=== PATIENT | male | born 1985 | race Caucasian/White ===

== ENCOUNTER 2018-02-25 14:30 | Emergency (ER) | payer SELFPAY ==
[~2018-02-25] VITALS: Ht 182.9 cm; Wt 96.2 kg
[~2018-02-25 14:30] MED LIST: ADVAIR 250-501 EACH IH; ADVAIR 250-501 EACH PO; ADVAIR 500/501 EA INH; ALBUTEROL SULFAT4 MG PO; ATIVAN2 MG PO; AZITHROMYCIN250 MG PO; DOXYCYCLINE HY100 M2 IV; DOXYCYCLINE MO100 M1 PO; FAMOTIDINE20 MG PO; GUAIFENESIN DM118 ML PO; Guaifenesin/Dextromethorphan PO; LORATADINE10 MG PO; Loratadine PO; MONTELUKAST SOD10 MG PO; PEPCID20 MG PO; PREDNISONE10 MG; PREDNISONE10 MG PO; PREDNISONE20 MG PO; PROAIR HFA INH8.5 GM INH; QVAR7.3 G1 INH; SINGULAIR10 MG PO; SYMBICORT 160-4.6 GM IH; SYMBICORT 16010.2 GM INH; TESSALON PERLE100 MG PO; VIBRAMYCIN100 MG PO; VIBRAMYCIN50 MG/5 ML PO; Z.0.FLONASE16 GM NS; Z.0.VENTOLIN HFA18 G IH
[2018-02-25] MEDS ORDERED: METHYLPREDNISOLONE SOD SUCC 125 MG/2ML VIAL ONE (14:37)
[2018-02-25] MEDS ORDERED: TERBUTALINE SULFATE 1 MG/ML VIAL SC ONE (14:45)
[2018-02-25] MEDS ORDERED: METHYLPREDNISOLONE SOD SUCC 125 MG/2ML VIAL IV ONE (14:45)
[2018-02-25] MEDS ORDERED: MAGNESIUM SULFATE 2GM/50ML 50 ML IV ONE (15:00)
[2018-02-25] MEDS ORDERED: ALBUTEROL/IPRATROPIUM 3 ML NEB NEB ONE (15:00)
[2018-02-25 15:04] LABS: BASOPHILS % 0.6 % (0.0-1.0); EOSINOPHILS # (AUTO) 0.7 (0.0-0.4); HEMATOCRIT 46.6 % (38.2-49.6); HEMOGLOBIN 16.5 g/dL (14.0-18.0); LYMPHOCYTES # (AUTO) 2.7 (1.0-3.2); LYMPHOCYTES % 39.6 % (18.0-39.1); MEAN CORPUSCULAR HEMOGLOBIN 30.6 pg (28-32); MEAN CORPUSCULAR HGB CONC 35.4 g/dL (31-35); MEAN CORPUSCULAR VOLUME 86.5 fL (81-99); MONOCYTES # (AUTO) 0.6 (0.2-0.8); MONOCYTES % 8.3 % (4.4-11.3); NEUTROPHILS # (AUTO) 2.7 (2.1-6.9); NEUTROPHILS % 40.4 % (38.7-80.0); PLATELET COUNT 291 x10e3/uL (140-360); RED BLOOD COUNT 5.39 x10e6/uL (4.3-5.7); RED CELL DISTRIBUTION WIDTH 13.2 % (11.7-14.4)
--- NOTE | 2018-02-25 15:06 | Diagnostic Imaging Report ---
EXAMINATION: CHEST SINGLE (PORTABLE) INDICATION: Shortness of breath COMPARISON: 01/31/2018 FINDINGS: TUBES and LINES: None. LUNGS: The patient is rotated to the right. Lungs are well inflated. Prominent bilateral deedee with peribronchial wall thickening essentially unchanged. No lobar consolidations. PLEURA: No pleural effusion or pneumothorax. HEART AND MEDIASTINUM: The cardiomediastinal silhouette is unremarkable.. BONES AND SOFT TISSUES: No acute osseous lesion. Soft tissues are unremarkable. UPPER ABDOMEN: No free air under the diaphragm. IMPRESSION: Bilateral hilar peribronchial wall thickening suggestive of viral infection. Signed by: Dr. Venkatesh Villalobos M.D. on 02/25/2018 3:03 PM
[2018-02-25 15:15] LABS: ALANINE AMINOTRANSFERASE 26 IU/L (0-55); ALBUMIN 4.2 g/dL (3.5-5.0); ALBUMIN/GLOBULIN RATIO 1.4 (0.8-2.0); ALKALINE PHOSPHATASE 78 IU/L (40-150); ANION GAP 16.2 mmol/L (8-16); BLOOD UREA NITROGEN 7 mg/dL (7-26); BUN/CREATININE RATIO 9 (6-25); CALCIUM 9.8 mg/dL (8.4-10.2); CARBON DIOXIDE 22 mmol/L (22-29); CHLORIDE 110 mmol/L (98-107); CREATININE, SERUM 0.76 mg/dL (0.72-1.25); EST GLOMERULAR FILTRATION RATE > 60 ML/MIN (60-); GLUCOSE 89 mg/dL (74-118); POTASSIUM 4.2 mmol/L (3.5-5.1); SODIUM 144 mmol/L (136-145)
[2018-02-25] MEDS ORDERED: LORAZEPAM INJ 2 MG/ML VIAL IV NR (15:15)
[2018-02-25 15:43] LABS: ABG HCO3 24 mmol/L (23-28); ABG PCO2 21 mmHg (41-51); ABG PH 7.66 (7.31-7.41); ABG PO2 529 mmHg (80-105)
[2018-02-25 17:03] LABS: AMPHETAMINES SCREEN,URINE NEGATIVE (NEGATIVE); BENZODIAZEPINES SCREEN,URINE POSITIVE (NEGATIVE); PHENCYCLIDINE SCREEN,URINE NEGATIVE (NEGATIVE)
[2018-02-25 17:41] VITALS: BP 139/82
== END 2018-02-25 17:53 | disposition home or self-care (01) ==
LOC: ER 14:30
DX: R06.00 Dyspnea, unspecified (principal); R05 Cough; J45.31 Mild persistent asthma with (acute) exacerbation; F12.90 Cannabis use, unspecified, uncomplicated; F13.90 Sedative, hypnotic, or anxiolytic use, unspecified, uncomplicated
CPT/HCPCS: 36415; 71045; 80053; 80307; 82805; 85025; 93005; 94640; 94660; 99284; J2060; J2930; J3105; 36600

== ENCOUNTER 2018-05-21 21:48 | Emergency (ER) | payer SELFPAY ==
[~2018-05-21] VITALS: Ht 193 cm; Wt 96.2 kg
[2018-05-21] MEDS ORDERED: ALBUTEROL/IPRATROPIUM 3 ML NEB ONE (21:52)
--- NOTE | 2018-05-21 23:22 | Diagnostic Imaging Report ---
CHEST SINGLE (PORTABLE), 05/21/2018 10:11 PM Technique: CHEST SINGLE (PORTABLE) Comparison: 02/25/2018 Clinical history: Respiratory distress Findings: Rounded density over the right upper lobe. Otherwise stable appearance of the heart, mediastinum, lungs and pleural spaces with mild hyperinflation. Impression: 1. Rounded density over the right upper lobe, likely artifactual related to overlying lead and portable technique. Recommend follow-up upright PA and lateral. 2. Otherwise stable chest without acute abnormality. Signed by: Dr Angeline Tai MD on 05/21/2018 11:18 PM
[2018-05-21 23:56] LABS: BASOPHILS % 0.4 % (0.0-1.0); EOSINOPHILS # (AUTO) 0.5 (0.0-0.4); EOSINOPHILS % 5.8 % (0.0-6.0); HEMATOCRIT 45.1 % (38.2-49.6); HEMOGLOBIN 15.6 g/dL (14.0-18.0); LYMPHOCYTES # (AUTO) 3.1 (1.0-3.2); LYMPHOCYTES % 38.5 % (18.0-39.1); MEAN CORPUSCULAR HEMOGLOBIN 30.5 pg (28-32); MEAN CORPUSCULAR HGB CONC 34.6 g/dL (31-35); MEAN CORPUSCULAR VOLUME 88.1 fL (81-99); MONOCYTES # (AUTO) 0.6 (0.2-0.8); NEUTROPHILS # (AUTO) 3.9 (2.1-6.9); NEUTROPHILS % 48.2 % (38.7-80.0); PLATELET COUNT 198 x10e3/uL (140-360); RED BLOOD COUNT 5.12 x10e6/uL (4.3-5.7); RED CELL DISTRIBUTION WIDTH 13.2 % (11.7-14.4)
[2018-05-22] MEDS ORDERED: MAGNESIUM SULFATE 2GM/50ML 50 ML IV ONE
[2018-05-22 00:11] LABS: ANION GAP 20.1 mmol/L (8-16); BLOOD UREA NITROGEN 14 mg/dL (7-26); BUN/CREATININE RATIO 15 (6-25); CALCIUM 9.3 mg/dL (8.4-10.2); CARBON DIOXIDE 20 mmol/L (22-29); CHLORIDE 105 mmol/L (98-107); CREATININE, SERUM 0.95 mg/dL (0.72-1.25); EST GLOMERULAR FILTRATION RATE > 60 ML/MIN (60-); GLUCOSE 119 mg/dL (74-118); POTASSIUM 3.1 mmol/L (3.5-5.1); SODIUM 142 mmol/L (136-145)
--- NOTE | 2018-05-22 00:25 | Diagnostic Imaging Report ---
CHEST 2 VIEWS, Technique: CHEST 2 VIEWS Comparison: 05/21/2018 portable radiograph Clinical history: Asthma DISCUSSION: Hyperinflation. Otherwise unremarkable appearance of the heart, mediastinum, lungs and pleural spaces. IMPRESSION: No acute abnormality. Previously described rounded right upper hemithorax opacity was related to summation shadow and portable technique. Signed by: Dr Angeline Tai MD on 05/22/2018 12:22 AM
--- NOTE | 2018-05-22 00:32 | NUR ---
PER MD'S REQUEST, PT AMB IN [place], TOLERATED WELL. DENIES SOB/DISCOMFORT. MD NOTIFIED.
[2018-05-22 01:28] LABS: CREATINE KINASE MB 11.9 ng/mL (0-5.0)
== END 2018-05-22 03:11 | disposition home or self-care (01) ==
LOC: ER 21:48
DX: R06.00 Dyspnea, unspecified (principal); J45.32 Mild persistent asthma with status asthmaticus
CPT/HCPCS: 36415; 71045; 71046; 80048; 82550; 82553; 84484; 85025; 93005; 94640; 99284; J3475

== ENCOUNTER 2018-10-23 17:08 | Emergency (ER) | payer SELFPAY ==
[~2018-10-23] VITALS: Ht 193 cm; Wt 96.2 kg
[2018-10-23] MEDS ORDERED: IPRATROPIUM BROMIDE 0.02% 2.5 ML NEB NEB STA (17:11)
--- NOTE | 2018-10-23 17:22 | NUR ---
RT AT BEDSIDE AT THIS TIME, PLACING PT ON BIPAP AT THIS TIME.
[2018-10-23] MEDS ORDERED: SODIUM CHLORIDE 0.9% 1000ML 1,000 ML IV STA (17:25)
[2018-10-23] MEDS ORDERED: SODIUM CHLORIDE 0.9% 1000ML 1,000 ML ONE (17:30)
--- NOTE | 2018-10-23 17:50 | NUR ---
RADIOLOGY AT BEDSIDE FOR CXR AT THIS TIME.
[2018-10-23] MEDS ORDERED: MAGNESIUM SULFATE 2GM/50ML 50 ML IV ONE (18:00)
[2018-10-23] MEDS ORDERED: ALBUTEROL SULF 0.083% NEB SOLN 3 ML NEB NEB ONE (18:00)
[2018-10-23] MEDS ORDERED: LORAZEPAM INJ 2 MG/ML VIAL IV ONE (18:00)
--- NOTE | 2018-10-23 18:08 | Diagnostic Imaging Report ---
EXAMINATION: CHEST SINGLE (PORTABLE) INDICATION: Shortness of breath. Asthma. COMPARISON: Chest x-ray 05/21/2018. FINDINGS: AP view TUBES and LINES: None. LUNGS: Lungs are well inflated. Bilateral peribronchial cuffing. There is no evidence of pneumonia or pulmonary edema. PLEURA: No pleural effusion or pneumothorax. HEART AND MEDIASTINUM: The cardiomediastinal silhouette is unremarkable. BONES AND SOFT TISSUES: No acute osseous lesion. Soft tissues are unremarkable. UPPER ABDOMEN: No free air under the diaphragm. IMPRESSION: Bilateral peribronchial cuffing, which could represent viral etiology or reactive airway disease. Signed by: Dr. Swapnil Bocanegra M.D. on 10/23/2018 6:04 PM
--- NOTE | 2018-10-23 18:30 | NUR ---
BIPAP REMOVED PER ORDERS FROM DR. LOPEZ, WILL CONTINUE TO MONITOR TO EVALUATE WORK OF BREATHING ON ROOM AIR.
[2018-10-23 19:14] VITALS: BP 143/87
== END 2018-10-23 19:30 | disposition home or self-care (01) ==
LOC: ER 17:08
DX: J45.901 Unspecified asthma with (acute) exacerbation (principal); Z87.891 Personal history of nicotine dependence
CPT/HCPCS: 71045; 93005; 94640; 94660; 99284; J2060; J3475; J7030

== ENCOUNTER 2019-01-28 08:52 | Emergency (ER) | payer SELFPAY ==
[~2019-01-28] VITALS: Ht 188 cm; Wt 99.8 kg
[2019-01-28] MEDS ORDERED: ALBUTEROL SULF 0.083% NEB SOLN 3 ML NEB ONE (09:12)
[2019-01-28] MEDS ORDERED: SODIUM CHLORIDE 0.9% 1000ML 1,000 ML IV SCH (09:15)
[2019-01-28] MEDS ORDERED: LORAZEPAM INJ 2 MG/ML VIAL IV ONE (09:15)
[2019-01-28] MEDS ORDERED: MAGNESIUM SULFATE 2GM/50ML 50 ML IV ONE (09:15)
[2019-01-28] MEDS ORDERED: ALBUTEROL/IPRATROPIUM 3 ML NEB NEB ONE ×2 (09:15)
[2019-01-28] MEDS ORDERED: ALBUTEROL/IPRATROPIUM 3 ML NEB NEB PRN (09:15)
[2019-01-28] MEDS ORDERED: METHYLPREDNISOLONE SOD SUCC 125 MG/2ML VIAL IV ONE (09:15)
[2019-01-28] MEDS ORDERED: ALBUTEROL/IPRATROPIUM 3 ML NEB ONE (09:22)
--- NOTE | 2019-01-28 09:40 | Diagnostic Imaging Report ---
A single frontal view of the chest. HISTORY: Asthma COMPARISON: Chest radiographs October 23, 2018 and May 21, 2018 DISCUSSION: Portable technique, limits sensitivity of the exam. Overlying tubing. Tubes/Lines: None Lungs and pleura: Persistent prominence of the peribronchial interstitial markings. No evidence of a consolidative pneumonia or pulmonary alveolar edema. No definite pleural effusion or pneumothorax is identified. Heart and mediastinum: The cardiomediastinal silhouette appear(s) unremarkable. Bones and soft tissues: Appear unremarkable, given this limited exam. IMPRESSION: Findings remain compatible with a nonspecific bronchitis, which can be seen in the provided setting of asthma. Signed by: Dr. Slade Tee D.O., M.M.M. on 01/28/2019 9:37 AM
[2019-01-28] MEDS ORDERED: SODIUM CHLORIDE 0.9% 1000ML 1,000 ML ONE (10:12)
--- NOTE | 2019-01-28 10:45 | NUR ---
Spoke to [facility] transfer center and arranged transfer to [place]. Dr. Tucker did a doc to doc report for pt and transfer center will call back with information. Pt needs a step down bed or a monitored tele bed with possible ICU upgrade if needed for intubation as pt has degraded and needed intubation before for asthma exacerbation.
[2019-01-28] MEDS ORDERED: ALBUTEROL SULF 0.083% NEB SOLN 3 ML NEB NEB STA (10:56)
--- NOTE | 2019-01-28 13:00 | NUR ---
Called [facility] for transport to [place]
--- NOTE | 2019-01-28 14:20 | NUR ---
[facility] here to [facility] pt to transport to [place]
--- NOTE | 2019-01-28 14:24 | NUR ---
Report to Adrianna at [place] [phone]
[2019-01-28 14:30] VITALS: BP 145/80
== END 2019-01-28 14:20 | disposition other institution (70) ==
LOC: FSED 08:52
DX: R06.00 Dyspnea, unspecified (principal); J45.51 Severe persistent asthma with (acute) exacerbation
CPT/HCPCS: 71045; 80053; 80307; 85025; 96374; 96375; 99284; J2060; J2930; J3475; J7030

== ENCOUNTER 2019-02-19 08:28 | Inpatient (IN) | payer OTHER ==
[~2019-02-19] VITALS: Ht 193 cm; Wt 99.8 kg
[2019-02-19] MEDS ORDERED: ALBUTEROL SULF 0.083% NEB SOLN 3 ML NEB NEB NR (08:33)
[2019-02-19] MEDS ORDERED: SODIUM CHLORIDE 0.9% 1000ML 1,000 ML IV STA (08:34)
[2019-02-19] MEDS ORDERED: IPRATROPIUM BROMIDE 0.02% 2.5 ML NEB ONE (08:40)
[2019-02-19] MEDS ORDERED: DEXAMETHASONE SOD PHOS INJ 4 MG/ML VIAL ONE (08:42)
[2019-02-19] MEDS ORDERED: IPRATROPIUM BROMIDE 0.02% 2.5 ML NEB NEB ONE (08:45)
[2019-02-19 08:55] LABS: BASOPHILS # (AUTO) 0.1 (0.0-0.1); BASOPHILS % 0.6 % (0.0-1.0); EOSINOPHILS # (AUTO) 0.3 (0.0-0.4); EOSINOPHILS % 4.2 % (0.0-6.0); HEMATOCRIT 46.4 % (38.2-49.6); HEMOGLOBIN 16.6 g/dL (14.0-18.0); LYMPHOCYTES # (AUTO) 1.8 (1.0-3.2); LYMPHOCYTES % 22.6 % (18.0-39.1); MEAN CORPUSCULAR HEMOGLOBIN 30.8 pg (28-32); MEAN CORPUSCULAR HGB CONC 35.8 g/dL (31-35); MEAN CORPUSCULAR VOLUME 86.1 fL (81-99); MONOCYTES # (AUTO) 0.5 (0.2-0.8); MONOCYTES % 6.2 % (4.4-11.3); NEUTROPHILS # (AUTO) 5.4 (2.1-6.9); NEUTROPHILS % 66.3 % (38.7-80.0); PLATELET COUNT 212 x10e3/uL (140-360); RED BLOOD COUNT 5.39 x10e6/uL (4.3-5.7); RED CELL DISTRIBUTION WIDTH 13.8 % (11.7-14.4)
[2019-02-19] MEDS: DEXAMETHASONE SOD PHOS 10 MG/1 ML VIAL INH NR (09:08)
[2019-02-19 09:19] LABS: ALANINE AMINOTRANSFERASE 28 IU/L (0-55); ALBUMIN 4.4 g/dL (3.5-5.0); ALBUMIN/GLOBULIN RATIO 1.5 (0.8-2.0); ALKALINE PHOSPHATASE 80 IU/L (40-150); BLOOD UREA NITROGEN 11 mg/dL (7-26); BUN/CREATININE RATIO 13 (6-25); CALCIUM 10.3 mg/dL (8.4-10.2); CARBON DIOXIDE 26 mmol/L (22-29); CHLORIDE 105 mmol/L (98-107); CREATINE KINASE 126 IU/L (30-200); CREATININE, SERUM 0.86 mg/dL (0.72-1.25); EST GLOMERULAR FILTRATION RATE > 60 ML/MIN (60-); GLUCOSE 100 mg/dL (74-118); MAGNESIUM 2.1 MG/DL (1.3-2.1); SODIUM 142 mmol/L (136-145)
--- NOTE | 2019-02-19 09:33 | Diagnostic Imaging Report ---
Examination: Single AP view of the chest. COMPARISON: None. INDICATION: Shortness of breath DISCUSSION: Lines/tubes: None. Lungs: The lungs are well inflated and clear. No pneumonia or pulmonary edema. Pleura: No pleural effusion or pneumothorax. Heart and mediastinum: The heart and the mediastinum are unremarkable. Bones and soft tissues: No acute bony abnormalities. IMPRESSION: 1. No acute cardiopulmonary abnormalities. Signed by: Dr. Roger Cerda M.D. on 02/19/2019 9:29 AM
[2019-02-19] MEDS ORDERED: METHYLPREDNISOLONE SOD SUCC 125 MG/2ML VIAL IV NR (09:45)
[2019-02-19 09:51] LABS: INR 0.86; PARTIAL THROMBOPLASTIN TIME 32.3 seconds (23.8-35.5); PROTHROMBIN TIME 12.2 seconds (11.9-14.5)
[2019-02-19] MEDS ORDERED: SODIUM CHLORIDE 0.9% 1000ML 1,000 ML IV SCH (11:31)
[2019-02-19] MEDS ORDERED: ACETAMINOPHEN 325 MG TAB PO PRN (11:45)
[2019-02-19] MEDS ORDERED: AZITHROMYCIN 500MG/NS 250 ML 250 ML IV SCH (11:45)
[2019-02-19] MEDS ORDERED: ONDANSETRON HCL INJ 2MG/ML 2ML 2 MG/ML VIAL IV PRN (11:45)
[2019-02-19 12:25] LABS: CLARITY,URINE SL CLOUDY (CLEAR); COLOR,URINE YELLOW (YELLOW)
[2019-02-19 12:26] LABS: BACTERIA,URINE FEW /HPF; BILIRUBIN,URINE NEGATIVE (NEGATIVE); EPITHELIAL CELLS,URINE FEW /LPF; KETONES,URINE NEGATIVE (NEGATIVE); LEUKOCYTE ESTERASE ,URINE NEGATIVE (NEGATIVE); NITRITE,URINE NEGATIVE (NEGATIVE); PROTEIN,URINE DIPSTICK TRACE (NEGATIVE); URINE UROBILINOGEN 0.2 mg/dL (0.2 - 1)
--- NOTE | 2019-02-19 12:26 | NUR ---
[facility] CALLED FOR MEAL TRAY
[2019-02-19 12:27] LABS: MUCUS,URINE MODERATE (RARE)
[2019-02-19 12:56] VITALS: BP 146/79
[2019-02-19 13:00] VITALS: BP 146/79
[2019-02-19] MEDS ORDERED: ADVAIR 500/501 EA INH (13:06)
[2019-02-19] MEDS ORDERED: METHYLPREDNISOLONE SOD SUCC 125 MG/2ML VIAL IV SCH ×2 (14:00→17:00)
[2019-02-19] MEDS: IPRATROPIUM BROMIDE 0.02% 2.5 ML NEB NEB SCH ×3 (14:52→23:25)
[2019-02-19] MEDS: ALBUTEROL SULF 0.083% NEB SOLN 3 ML NEB NEB SCH ×3 (14:52→23:20)
--- NOTE | 2019-02-19 15:05 | NUR ---
Visit made by the Spiritual Care Department Pastoral Visitor, Dorian Wing. PV provided pastoral presence, hospitality, and supportive listening. Pastoral Visitor informed pt/family of the scope of Patient Accounts Manager Services and availability. NICOLE TRIVEDI Change Advisor Spiritual Care Department O: [phone] Pager: [phone] ([phone] number calling from)
[2019-02-19 16:23] VITALS: BP 153/75
[2019-02-19 20:00] VITALS: BP 138/79
[2019-02-19] MEDS ORDERED: LORAZEPAM 1 MG PO PRN (20:00)
[2019-02-19] MEDS ORDERED: MELATONIN 5 MG TABLET PO PRN (20:00)
[2019-02-19] MEDS ORDERED: HYDRALAZINE HCL 20 MG/ML VIAL IV PRN (20:00)
[2019-02-19] MEDS: LORAZEPAM 1 MG TAB PO PRN (20:58)
[2019-02-19 21:00] VITALS: BP 138/79
[2019-02-20] VITALS (7 sets, daily range): BP systolic 120–170; BP diastolic 63–82
--- NOTE | 2019-02-20 02:00 | NUR ---
Patient refused SCD's. States he gets up often and don't need it.
[2019-02-20 03:02] LABS: HEMATOCRIT 46.6 % (38.2-49.6); HEMOGLOBIN 16.4 g/dL (14.0-18.0); LYMPHOCYTES # (AUTO) 0.7 (1.0-3.2); LYMPHOCYTES % 7.8 % (18.0-39.1); MEAN CORPUSCULAR HEMOGLOBIN 30.4 pg (28-32); MEAN CORPUSCULAR HGB CONC 35.2 g/dL (31-35); MEAN CORPUSCULAR VOLUME 86.5 fL (81-99); MONOCYTES # (AUTO) 0.3 (0.2-0.8); MONOCYTES % 3.2 % (4.4-11.3); NEUTROPHILS # (AUTO) 8.2 (2.1-6.9); NEUTROPHILS % 88.6 % (38.7-80.0); PLATELET COUNT 195 x10e3/uL (140-360); RED BLOOD COUNT 5.39 x10e6/uL (4.3-5.7); RED CELL DISTRIBUTION WIDTH 13.6 % (11.7-14.4)
[2019-02-20 03:14] LABS: ANION GAP 12.9 mmol/L (8-16); BLOOD UREA NITROGEN 10 mg/dL (7-26); BUN/CREATININE RATIO 13 (6-25); CALCIUM 10.2 mg/dL (8.4-10.2); CARBON DIOXIDE 23 mmol/L (22-29); CHLORIDE 107 mmol/L (98-107); CREATININE, SERUM 0.75 mg/dL (0.72-1.25); EST GLOMERULAR FILTRATION RATE > 60 ML/MIN (60-); GLUCOSE 126 mg/dL (74-118); MAGNESIUM 2.1 MG/DL (1.3-2.1); POTASSIUM 3.9 mmol/L (3.5-5.1); SODIUM 139 mmol/L (136-145)
[2019-02-20] MEDS: ALBUTEROL SULF 0.083% NEB SOLN 3 ML NEB NEB SCH ×6 (04:00→23:15)
[2019-02-20] MEDS: IPRATROPIUM BROMIDE 0.02% 2.5 ML NEB NEB SCH ×6 (04:00→23:15)
[2019-02-20] MEDS ORDERED: CEFTRIAXONE SOD 1 GM/NS 50 ML 50 ML IV SCH (04:30)
--- NOTE | 2019-02-20 04:50 | NUR ---
Jaycee notified that patient refused SCD's.
[2019-02-20] MEDS ORDERED: FUROSEMIDE INJ 10 MG/ML 4 ML VIAL IV ONE (05:00)
[2019-02-20] MEDS: LEVOFLOXACIN 750MG/D5W 150ML 150 ML IV SCH (05:23)
[2019-02-20] MEDS ORDERED: FAMOTIDINE 20 MG TAB PO SCH ×2 (06:00)
[2019-02-20] MEDS: GUAIFENESIN 600MG/DEXTROMETHORPHAN 30MG TABSR PO SCH ×2 (09:36→18:01)
[2019-02-20] MEDS: PREDNISONE 20 MG TAB PO SCH (09:36)
[2019-02-20] MEDS: LORATADINE 10 MG TAB PO SCH (09:36)
[2019-02-20] MEDS ORDERED: ONDANSETRON HCL 4 MG ORAL DISINTEGRATING TAB PO PRN (10:45)
--- NOTE | 2019-02-20 10:51 | NUR ---
ASSESSMENT: Spiritual Despair Pt overwhelmed by unresolved guilt, shame, self-forgiveness and anticipatory grief. Pt states his mother is presently hospitalized with terminal brain cancer and he is struggling with coming to terms with her mortality. Pt states he has difficulty forgiving himself for poor life choices. Pt states he doesn't have "the coping skills" to manage his stress. Pt's yeni is wavering. Pt expressed emotions thru words and tears. Intervention: Provided unhurried empathic listening. Facilitated life review. Normalized pt's experience. Suggested coping strategies. Provided prayer. Outcome: Provided information on how to reach home connect lpn, if needed. Will follow as able. NICOLE TRIVEDI Criminal Justice Department Chair Spiritual Care Department O: [phone] Pager: [phone] ([phone] number calling from)
[2019-02-20] MEDS: FAMOTIDINE 20 MG TAB PO SCH (18:01)
--- NOTE | 2019-02-20 19:08 | NUR ---
Received change of shift report from AM nurse. Walking rounds completed.
[2019-02-21] VITALS (7 sets, daily range): BP systolic 121–134; BP diastolic 61–79
[2019-02-21] MEDS: IPRATROPIUM BROMIDE 0.02% 2.5 ML NEB NEB SCH ×5 (03:00→20:15)
[2019-02-21] MEDS: ALBUTEROL SULF 0.083% NEB SOLN 3 ML NEB NEB SCH ×5 (03:00→20:15)
[2019-02-21] MEDS: LEVOFLOXACIN 750MG/D5W 150ML 150 ML IV SCH (04:45)
[2019-02-21 05:50] LABS: BASOPHILS % 0.3 % (0.0-1.0); EOSINOPHILS # (AUTO) 0.1 (0.0-0.4); EOSINOPHILS % 1.6 % (0.0-6.0); HEMATOCRIT 46.1 % (38.2-49.6); HEMOGLOBIN 16.2 g/dL (14.0-18.0); LYMPHOCYTES # (AUTO) 1.6 (1.0-3.2); LYMPHOCYTES % 21.3 % (18.0-39.1); MEAN CORPUSCULAR HGB CONC 35.1 g/dL (31-35); MEAN CORPUSCULAR VOLUME 88.1 fL (81-99); MONOCYTES # (AUTO) 0.7 (0.2-0.8); MONOCYTES % 8.7 % (4.4-11.3); NEUTROPHILS # (AUTO) 5.2 (2.1-6.9); NEUTROPHILS % 67.8 % (38.7-80.0); PLATELET COUNT 206 x10e3/uL (140-360); RED BLOOD COUNT 5.23 x10e6/uL (4.3-5.7); RED CELL DISTRIBUTION WIDTH 14.4 % (11.7-14.4)
[2019-02-21 06:11] LABS: ANION GAP 11.8 mmol/L (8-16); BUN/CREATININE RATIO 24 (6-25); CALCIUM 9.7 mg/dL (8.4-10.2); CARBON DIOXIDE 25 mmol/L (22-29); CHLORIDE 107 mmol/L (98-107); CREATININE, SERUM 0.82 mg/dL (0.72-1.25); EST GLOMERULAR FILTRATION RATE > 60 ML/MIN (60-); GLUCOSE 92 mg/dL (74-118); POTASSIUM 3.8 mmol/L (3.5-5.1); SODIUM 140 mmol/L (136-145)
[2019-02-21 06:24] LABS: BLOOD UREA NITROGEN 20 mg/dL (7-26)
--- NOTE | 2019-02-21 07:15 | NUR ---
Patient /bun/Creatine appear to elevate but at normal range. Passed info on to AM nurse.
[2019-02-21] MEDS: LORATADINE 10 MG TAB PO SCH (09:33)
[2019-02-21] MEDS: GUAIFENESIN 600MG/DEXTROMETHORPHAN 30MG TABSR PO SCH ×2 (09:34→17:23)
[2019-02-21] MEDS: PREDNISONE 20 MG TAB PO SCH (09:34)
[2019-02-21] MEDS: FAMOTIDINE 20 MG TAB PO SCH ×2 (09:34→17:23)
--- NOTE | 2019-02-21 13:15 | NUR ---
Follow Up Visit. Reminded pt of availability of debeader as a resource. Will continue to follow as able. NICOLE TRIVEDI Rx Specialist Spiritual Care Department O: [phone] Pager: [phone] ([phone] number calling from)
--- NOTE | 2019-02-21 14:30 | NUR ---
Visit made by the Spiritual Care Department Pastoral Visitor, Charlene Townsend. PV provided pastoral presence, prayer, hospitality, and supportive listening. Pastoral Visitor informed pt/family of the scope of Air Cargo Specialist Supervisor Services and availability. NICOLE TRIVEDI Size Cutter Spiritual Care Department O: [phone] Pager: [phone] ([phone] number calling from)
--- NOTE | 2019-02-21 19:13 | NUR ---
WALKING ROUNDS PERFORMED, RECEIVED PT LAYING SEMI FOWLERS IN BED, AAOX3, RR EVEN AND NON-LABORED, ON ROOM AIR. NO S/SX OF DISTRESS NOTED. LEFT PT LAYING SEMI FOWLERS IN BED, BED IN LOW LOCKED POSITION, SIDE RAILS UPX2, CALL LIGHT AND PHONE WITHIN REACH.
--- NOTE | 2019-02-21 20:05 | NUR ---
SPOKE WITH ASSOCIATE SADAF GARCIA CONCERNING PT HAS RELIGIOUS EDUCATION DIRECTOR ON BUT NO CURRENT ORDER FOR TELEMETRY. NEW ORDER RECEIVED TO PLACE PATIENT ON TELEMETRY.
[2019-02-22] VITALS (8 sets, daily range): BP systolic 118–133; BP diastolic 63–76
--- NOTE | 2019-02-22 | NUR ---
RECEIVED PATIENT IN REPORT. PATIENT RESTING IN BED. NO PAIN REPORTED. NO S&S OF DISTRESS NOTED. BED LOCKED IN LOWEST POSITION, SIDE RAILS UPX2, CALL LIGHT IN REACH.
[2019-02-22] MEDS: ALBUTEROL SULF 0.083% NEB SOLN 3 ML NEB NEB SCH ×6 (00:15→20:20)
[2019-02-22] MEDS: IPRATROPIUM BROMIDE 0.02% 2.5 ML NEB NEB SCH ×6 (00:15→20:20)
[2019-02-22] MEDS: LEVOFLOXACIN 750MG/D5W 150ML 150 ML IV SCH (04:45)
--- NOTE | 2019-02-22 05:00 | NUR ---
PATIENT'S IV SITE INFILTRATED WHEN FLUSHED FOR IV ABX. VERY SMALL AREA OF SWELLING AND REDNESS, ONLY 1 ML WAS FLUSHED. REMOVED IV, CATHETER TIP INTACT, PRESSURE DRESSING IN PLACE. NURSE ATTEMPTED IV TWICE, BOTH TIMES PATIENT STATED IT HURT TOO BAD AND ASKED THE NEEDLE BE REMOVED BEFORE IV CATHETER PLACED. WAITING ON ANOTHER NURSE TO ATTEMPT, WILL CONTINUE TO MONITOR.
[2019-02-22] MEDS: GUAIFENESIN 600MG/DEXTROMETHORPHAN 30MG TABSR PO SCH ×2 (08:31→16:57)
[2019-02-22] MEDS: LORATADINE 10 MG TAB PO SCH (08:31)
[2019-02-22] MEDS: FAMOTIDINE 20 MG TAB PO SCH ×2 (08:31→16:57)
[2019-02-22] MEDS: PREDNISONE 20 MG TAB PO SCH (08:31)
--- NOTE | 2019-02-22 11:54 | NUR ---
GAVE PACKET OF INFORMATION WITH COMMUNITY RESOURCES FOR ASSISTANCE WITH LOW TO NO INCOME TO PATIENT. RESOURCES THAT PATIENT MAY BE ABLE TO FOLLOW UP UPON DISCHARGE. PT EDUCATED ON EACH RESOURCE AND UNDERSTANDING HOW TO FOLLOW UP TO SEE IF QUALIFIED FOR EACH RESOURCE.
[2019-02-22] MEDS: DOCUSATE SODIUM 100 MG CAP PO SCH ×2 (12:58→20:36)
--- NOTE | 2019-02-22 13:00 | NUR ---
NOTIFIED PT ABOUT MEDICAL OBSERVER RAJ ORDER TO INSERT PICC LINE . PT STATES HE DOES NOT WANT A PICC LINE AT THIS TIME. STATES HE HAS AN IV TO THE RIGHT FA AND IS WORKING FINE, WANTS TO WAIT UNTIL THIS PERIPHERAL IV GIVES OUT BEFORE TRYING SOMETHING MORE EXTENSIVE NOTIFIED LEXI ANTHONY, MEDICAL OBSERVER IS AWARE OF PT REQUEST. HOLDING OFF ON PICC LINE REQUEST FOR NOW
[2019-02-22] MEDS ORDERED: ALBUTEROL SULFATE HFA 8GM INHALATION AEROSOL INH PRN (14:00)
[2019-02-22] MEDS ORDERED: METHYLPREDNISOLONE SOD SUCC 125 MG/2ML VIAL IV SCH ×2 (14:00→21:00)
[2019-02-22] MEDS: SALMETEROL/FLUTICASONE 500/50 INH SCH (15:35)
[2019-02-22] MEDS: SODIUM CHLORIDE 0.9% 1000ML 1,000 ML IV SCH ×2 (15:50→22:45)
[2019-02-22] MEDS: POLYETHYLENE GLYCOL 3350 17 GM PACK PO SCH (16:57)
[2019-02-22] MEDS: FLUTICASONE PROPIONATE NASAL SPRAY NS SCH (17:16)
[2019-02-22] MEDS: LORAZEPAM 1 MG TAB PO PRN (17:17)
--- NOTE | 2019-02-22 18:54 | Diagnostic Imaging Report ---
History: Sinusitis Comparison studies: Head CT 08/07/2014 Technique: Axial images were obtained through the paranasal sinuses. Coronal and sagittal images reconstructed from the axial data. Dose modulation, iterative reconstruction, and/or weight based adjustment of the mA/kV was utilized to reduce the radiation dose to as low as reasonably achievable. IV contrast: None. Radiation dose: Total DLP: 316 mGy*cm. Estimated effective dose: DLP x 0.015 Intravenous contrast: None Findings: Right anterior complex: Frontal sinus: Partially opacified with polypoid mucosal thickening. Frontonasal recess: Opacified. Anterior ethmoid air cells: Opacified. Ostiomeatal unit: Opacified. Maxillary sinus: Partially opacified by peripheral mucosal thickening and fluid/secretions. Left anterior complex: Frontal sinus: Clear. Frontonasal recess: Clear. Anterior ethmoid air cells: Clear. Ostiomeatal unit: Clear. Maxillary sinus: Minimal mucosal thickening inferiorly within the sinus otherwise clear. Posterior complex: Right sphenoid sinus: Clear. Right sphenoethmoidal recess: Clear. Left sphenoid sinus: Partially opacified with mild mucosal thickening. Left sphenoethmoidal recess: Opacified. Posterior ethmoid air cells: Opacified Other: Nasal vestibule and cavity: Right nasal cavity is clear. Left nasal cavity is mostly opacified with reactive turbinate hypertrophy, mucosal thickening and secretions. Nasal septum: Deviated to the left of midline with leftward projecting osseous spur which abuts the left inferior turbinate and inferior left middle turbinate Agger Nasi: Clear on the right. Opacified on the left. Turbinates: No andrew bullosa. Placido cells: None Lamina papyracea: Intact. Cribriform plates: , 6 mm on the right and 4 mm on the left below the level of the fovea ethmoidalis. Olfactory recesses: Narrowed and partially opacified posteriorly. Clear anteriorly. Optic canals: Not dehiscent Onodi cells: None Internal carotid arteries: from the sphenoid sinuses by thin bony plates. Sphenoid sinuses: Similar in size. Lateral recesses are partially pneumatized. Orbits: No abnormalities. Bones: No abnormalities. Temporal bones: No gross abnormalities. Maxillary dentition: Multiple absent teeth. Tooth #9 root canal. No periapical lucencies. IMPRESSION: 1. Left maxillary sinus, left anterior and posterior ethmoid and left frontal sinus opacification with mild mucosal thickening in the left sphenoid sinus and right maxillary sinus. Left maxillary sinus secretions indicative of acute on chronic sinusitis. 2. Obstructed left maxillary sinus and left sphenoethmoidal recess. Remaining sinus drainage pathways are patent. 3. Left nasal cavity opacified by mucosal thickening, turbinate hypertrophy and secretions. Left nasal obstruction exacerbated by leftward deviated nasal septum. Signed by: Dr. Ben Ambriz M.D. on 02/22/2019 6:51 PM
[2019-02-22] MEDS ORDERED: CEFTRIAXONE SOD 1 GM/NS 50 ML 50 ML IV SCH (19:30)
--- NOTE | 2019-02-22 20:43 | Consultation ---
DATE OF CONSULTATION: Pulmonary Critical Care consultation CHIEF COMPLAINT: Chronic persistent asthma with acute exacerbation. HISTORY OF PRESENT ILLNESS: The patient is a 33-year-old man. He has a lifelong history of asthma. He has required frequent hospitalizations including a hospitalization at [facility] in 2016 as well as two hospitalizations in 2018. He was most recently hospitalized at [facility] for an asthma exacerbation. He uses Advair 500 mcg twice a day at home. He also uses nebulizer and rescue inhaler. He previously tried Xolair, but he had an allergic reaction to this. He now returns to the hospital complaining of wheezing and coughing. He also notes some sinus congestion and nasal obstruction. The patient denies any sensitivity to aspirin. He does not have severe gastroesophageal reflux. He is not smoking. He does not vape or use any other drugs through an inhaled means. PAST MEDICAL HISTORY: 1. Chronic persistent asthma. 2. History of airborne allergies. The patient was previously followed by Dr. Woods of Allergy at [place]. PAST SURGICAL HISTORY: Noncontributory. FAMILY HISTORY: His father had asthma, but it was never as severe as is his. There is no history of cystic fibrosis in the family. ALLERGIES: NO KNOWN DRUG ALLERGIES. SOCIAL HISTORY: The patient is a nonsmoker. 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 He has no dogs or cats at home. REVIEW OF SYSTEMS: He has no fever or headache. He does note some nasal congestion and sinus pain. He does not complain of any neck pain or sore throat. He notes wheezing and coughing. He has no chest pain. He is not having any gastroesophageal reflux or heartburn. He denies nausea or vomiting. He has no focal neurological abnormalities. Skin examination shows no rashes. PHYSICAL EXAMINATION: VITAL SIGNS: The patient is afebrile. The blood pressure is 129/70 and the saturation is 97%. HEENT: Shows no facial swelling or erythema. CARDIAC: Reveals regular rate and rhythm with a normal S1 and S2. There are no murmurs or rubs. PULMONARY: Auscultation of lungs show wheezes in both lung mcintyre. There is a prolonged expiratory phase. ABDOMEN: Soft and nontender. There is no rebound or guarding. EXTREMITIES: Show no leg edema or calf tenderness. There is no cyanosis or clubbing. SKIN: Shows no rashes. NEUROLOGICAL: Shows no focal abnormalities. IMPRESSION: 1. Chronic persistent asthma with acute exacerbation. 2. Rhinosinusitis. 3. Multiple airborne allergens. PLAN: 1. Continue high-dose inhaled corticosteroids (Advair 500 mcg two puffs twice daily). 2. Taper steroids as tolerated. 3. CT scan of the sinuses. 4. Consider cystic fibrosis probe to rule out variance of cystic fibrosis. 5. The patient should be started on either Fasenra or Nucala as an outpatient to help prevent recurrent exacerbations. Joaquin Camilo MD [facility]/MODL /[id number]
[2019-02-22] MEDS ORDERED: OXYMETAZOLINE HCL 0.05% NAS 1 SPRAY BTL SCH (21:00)
[2019-02-23] MEDS: ALBUTEROL SULF 0.083% NEB SOLN 3 ML NEB NEB SCH ×4 (00:10→11:00)
[2019-02-23] MEDS: IPRATROPIUM BROMIDE 0.02% 2.5 ML NEB NEB SCH ×4 (00:10→11:00)
[2019-02-23 00:22] VITALS: BP 119/72
[2019-02-23 04:00] VITALS: BP 103/57
[2019-02-23] MEDS: LEVOFLOXACIN 750MG/D5W 150ML 150 ML IV SCH (04:49)
[2019-02-23 05:51] LABS: BASOPHILS % 0.1 % (0.0-1.0); EOSINOPHILS % 0.1 % (0.0-6.0); HEMATOCRIT 47.6 % (38.2-49.6); HEMOGLOBIN 16.4 g/dL (14.0-18.0); LYMPHOCYTES # (AUTO) 0.9 (1.0-3.2); LYMPHOCYTES % 9.7 % (18.0-39.1); MEAN CORPUSCULAR HEMOGLOBIN 30.4 pg (28-32); MEAN CORPUSCULAR HGB CONC 34.5 g/dL (31-35); MEAN CORPUSCULAR VOLUME 88.1 fL (81-99); MONOCYTES # (AUTO) 0.5 (0.2-0.8); MONOCYTES % 5.7 % (4.4-11.3); NEUTROPHILS # (AUTO) 7.5 (2.1-6.9); NEUTROPHILS % 84.1 % (38.7-80.0); PLATELET COUNT 208 x10e3/uL (140-360); RED CELL DISTRIBUTION WIDTH 13.8 % (11.7-14.4)
[2019-02-23 06:30] LABS: ANION GAP 11.1 mmol/L (8-16); BLOOD UREA NITROGEN 18 mg/dL (7-26); BUN/CREATININE RATIO 23 (6-25); CALCIUM 9.6 mg/dL (8.4-10.2); CARBON DIOXIDE 27 mmol/L (22-29); CHLORIDE 103 mmol/L (98-107); CREATININE, SERUM 0.79 mg/dL (0.72-1.25); EST GLOMERULAR FILTRATION RATE > 60 ML/MIN (60-); GLUCOSE 131 mg/dL (74-118); PHOSPHORUS 3.7 MG/DL (2.3-4.7); POTASSIUM 4.1 mmol/L (3.5-5.1); SODIUM 137 mmol/L (136-145)
[2019-02-23 07:53] VITALS: BP 131/64
[2019-02-23] MEDS: GUAIFENESIN 600MG/DEXTROMETHORPHAN 30MG TABSR PO SCH (09:00)
[2019-02-23] MEDS: LORATADINE 10 MG TAB PO SCH (09:00)
[2019-02-23] MEDS: FAMOTIDINE 20 MG TAB PO SCH (09:00)
[2019-02-23] MEDS: FLUTICASONE PROPIONATE NASAL SPRAY NS SCH (09:00)
[2019-02-23] MEDS: DOCUSATE SODIUM 100 MG CAP PO SCH (09:00)
[2019-02-23] MEDS ORDERED: METHYLPREDNISOLONE SOD SUCC 40 MG/ML VIAL 1ML IV SCH (09:00)
[2019-02-23] MEDS: POLYETHYLENE GLYCOL 3350 17 GM PACK PO SCH (09:00)
[2019-02-23] MEDS ORDERED: SALINE 0.65% NAS SOLN 1 SPRAY BTL SCH (10:00)
[2019-02-23] MEDS: SALMETEROL/FLUTICASONE 500/50 INH SCH (11:00)
--- NOTE | 2019-02-23 11:00 | NUR ---
ASSESSMENT: Spiritual despair Pt overwhelmed by life issues. Pt states he was just told that he lost his job due to his hospitalization. Pt states, "I don't know what I'm going to do next" and "my life is falling apart." Intervention: Provided unhurried pastoral listening. Facilitated space for lament. Provided prayer. Outcome: Pt expressed appreciation for visit. NICOLE Rosasin Spiritual Care Department O: [phone] Pager: [phone] ([phone] number calling from)
[2019-02-23] MEDS ORDERED: LEVAQUIN500 MG PO (11:38)
[2019-02-23] MEDS ORDERED: PREDNISONE10 MG PO (11:39)
--- NOTE | 2019-02-23 11:39 | Progress Note ---
DATE: Pulmonary Progress Note SUBJECTIVE: The CT scan showed sinusitis. The patient reports improvement with less wheezing and less cough. PHYSICAL EXAMINATION: VITAL SIGNS: The patient is afebrile. The vital signs are stable. HEENT: Shows no facial swelling or erythema. CARDIAC: Reveals a regular rate and rhythm with normal S1 and S2. LUNGS: Auscultation of lungs reveals clear breath sounds bilaterally. There is no wheezing. ABDOMEN: Soft and nontender. EXTREMITIES: There is no leg edema or calf tenderness. NEUROLOGICAL: Shows no focal abnormalities. IMPRESSION: 1. Severe chronic persistent asthma with acute exacerbation. 2. Left maxillary, ethmoid, and frontal sinusitis. 3. Septal deviation and hypertrophy of the turbinates. PLAN: 1. The patient must be on high dose inhaled corticosteroids; I emphasized the importance of this with the patient. 2. Continue albuterol as a rescue inhaler. 3. Prednisone taper and antibiotics. 4. Deep Sea nasal spray along with Atrovent and Flonase. 5. The patient needs ENT evaluation as an outpatient within the next 1 to 2 weeks. 6. The patient needs to follow up with Pulmonology within the next week. He should be evaluated for biological therapy, such as Fasenra or Nucala, as an outpatient. MD [facility]/JOSLYN /[id number]
[2019-02-23] MEDS ORDERED: [UNRECOGNIZED DRUG - OTHER] INH (11:43)
[2019-02-23] MEDS ORDERED: ATROVENT NASAL SPRAY INH (11:43)
[2019-02-23] MEDS ORDERED: FLONASE INH (11:44)
[2019-02-23] MEDS ORDERED: [UNRECOGNIZED DRUG - OTHER] INH (11:45)
--- NOTE | 2019-02-23 12:11 | NUR ---
DISCHARGE INSTRUCTIONS GIVEN AND PRESCRIPTIONS . PT VERBALIZED UNDERSTANDING IV DC PRESSURE DRESSING APPLIED AND TAPED PT IS READY FOR DC
[2019-02-23 12:23] VITALS: BP 148/85
--- NOTE | 2019-02-23 12:33 | NUR ---
PT OFF UNIT TO HOME
--- NOTE | 2019-02-25 06:15 | Discharge Summary ---
ADMISSION DIAGNOSES: Bronchopneumonia, acute exacerbation of asthma, anxiety. DISCHARGE DIAGNOSES: Bronchopneumonia, acute exacerbation of asthma, anxiety, chronic sinusitis. HISTORY: Asthma and anxiety. SURGICAL HISTORY: None. FAMILY HISTORY: The patient's father, mother, both grandmothers, and both grandfather had diabetes. The patient's mother had cancer. SOCIAL HISTORY: Noncontributory. HOSPITAL COURSE: A 33-year-old male with past medical history of asthma, presents with 3 weeks of wheezing and shortness of breath. He went to [facility], where he was admitted and given steroids and Zithromax. He felt better and was sent home with tapered steroid dose. He is still taking the low-dose steroid when he began having shortness of breath again. He uses nebulizer 4 times and inhaler without any relief, so he came back to the ER. He has associated runny nose, congestion, and productive cough. On admission, the patient was started on Levaquin, nebs, Mucinex, Claritin, and IV steroids. Chest x-ray was negative. Pulmonology was then consulted, who ordered a CT of the face, that showed left maxillary sinus, left anterior and posterior ethmoid and left frontal sinus opacification with mild mucosal thickening in the left sphenoid sinus and right maxillary sinus. Left maxillary sinus secretions indicative of [id number] sinusitis. Obstructed left maxillary sinus and left sphenoethmoid recess. So, per Pulmonology recommendation, the patient will discharge home with 10 more days of Levaquin, prednisone, Deep Sea spray, Atrovent spray, Flonase spray, and Advair 500/50 to clear out his sinusitis, that will also help his asthma. He will follow up with Dr. Camilo in 1 week. The patient understands discharge instructions and agrees to plan. Vital signs stable, the patient afebrile. Dictated by Jaycee Oliva NP Ravinder Olsen MD [facility]L /[id number]
== END 2019-02-23 12:28 | disposition home or self-care (01) | DRG 202 ==
LOC: ER 08:38 → ERHOLD 11:39 → MED/SURG 12:40 → OBSVTOIN 02-22 08:02
PROVIDERS: ADMIT Internal Medicine; ATTEND Internal Medicine
DX: J45.51 Severe persistent asthma with (acute) exacerbation (principal); J18.0 Bronchopneumonia, unspecified organism; F41.9 Anxiety disorder, unspecified; J32.9 Chronic sinusitis, unspecified
CPT/HCPCS: 36415; 70486; 71045; 80048; 80053; 81001; 82550; 82553; 83735; 83880; 84100; 84484; 85025; 85610; 85730; 93005; 94640; 94664; 99284; G0378; J0456; J0696; J1100; J1940; J2930; J7030; J7512

== ENCOUNTER 2019-07-28 15:09 | Inpatient (IN) | payer SELFPAY ==
[~2019-07-28] VITALS: Ht 193 cm; Wt 102.3 kg
[~2019-07-28 15:09] MED LIST changes: +ATROVENT NASAL SPRAY INH; +FLONASE INH; +LEVAQUIN500 MG PO; +[UNRECOGNIZED DRUG - OTHER] INH; +[UNRECOGNIZED DRUG - OTHER] INH
[2019-07-28] MEDS ORDERED: ALBUTEROL SULF 0.083% NEB SOLN 3 ML NEB NEB STA (15:11)
[2019-07-28] MEDS ORDERED: IPRATROPIUM BROMIDE 0.02% 2.5 ML NEB NEB STA (15:11)
[2019-07-28] MEDS ORDERED: METHYLPREDNISOLONE SOD SUCC 125 MG/2ML VIAL IV ONE (15:15)
[2019-07-28] MEDS ORDERED: METHYLPREDNISOLONE SOD SUCC 125 MG/2ML VIAL ONE (15:22)
[2019-07-28] MEDS ORDERED: ALBUTEROL SULF 0.083% NEB SOLN 3 ML NEB ONE (15:22)
[2019-07-28] MEDS ORDERED: IPRATROPIUM BROMIDE 0.02% 2.5 ML NEB ONE (15:23)
[2019-07-28] MEDS ORDERED: MAGNESIUM SULF 1GRAM/DEXTROSE 100 ML IV ONE (15:30)
[2019-07-28 16:00] LABS: BASOPHILS % 0.4 % (0.0-1.0); EOSINOPHILS # (AUTO) 0.5 (0.0-0.4); EOSINOPHILS % 4.6 % (0.0-6.0); HEMATOCRIT 45.5 % (38.2-49.6); HEMOGLOBIN 15.9 g/dL (14.0-18.0); LYMPHOCYTES # (AUTO) 1.4 (1.0-3.2); LYMPHOCYTES % 13.1 % (18.0-39.1); MEAN CORPUSCULAR HEMOGLOBIN 30.5 pg (28-32); MEAN CORPUSCULAR HGB CONC 34.9 g/dL (31-35); MEAN CORPUSCULAR VOLUME 87.2 fL (81-99); MONOCYTES # (AUTO) 0.7 (0.2-0.8); MONOCYTES % 6.4 % (4.4-11.3); NEUTROPHILS # (AUTO) 7.8 (2.1-6.9); NEUTROPHILS % 75.1 % (38.7-80.0); PLATELET COUNT 207 x10e3/uL (140-360); RED BLOOD COUNT 5.22 x10e6/uL (4.3-5.7); RED CELL DISTRIBUTION WIDTH 14.1 % (11.7-14.4)
[2019-07-28] MEDS ORDERED: ONDANSETRON HCL INJ 2MG/ML 2ML 2 MG/ML VIAL IV PRN (16:00)
--- NOTE | 2019-07-28 16:00 | NUR ---
RN brought pt to from triage, pt recieving neb trmts. monitor worker applied, 12 lead ekg performed. NS initiated @ 125ml/hr. 4 mg zofran iv given. Patient O2 sats on RA 98%.
[2019-07-28 16:14] LABS: ALANINE AMINOTRANSFERASE 111 IU/L (0-55); ALBUMIN 4.3 g/dL (3.5-5.0); ALBUMIN/GLOBULIN RATIO 1.7 (0.8-2.0); ALKALINE PHOSPHATASE 76 IU/L (40-150); ANION GAP 13.8 mmol/L (8-16); BLOOD UREA NITROGEN 12 mg/dL (7-26); BUN/CREATININE RATIO 15 (6-25); CALCIUM 9.3 mg/dL (8.4-10.2); CARBON DIOXIDE 25 mmol/L (22-29); CHLORIDE 105 mmol/L (98-107); CREATININE, SERUM 0.78 mg/dL (0.72-1.25); EST GLOMERULAR FILTRATION RATE > 60 ML/MIN (60-); GLUCOSE 81 mg/dL (74-118); POTASSIUM 3.8 mmol/L (3.5-5.1); SODIUM 140 mmol/L (136-145)
[2019-07-28] MEDS: SODIUM CHLORIDE 0.9% 1000ML 1,000 ML IV SCH ×2 (16:38→23:54)
--- NOTE | 2019-07-28 17:07 | Diagnostic Imaging Report ---
EXAM: CHEST SINGLE (PORTABLE) DATE: 07/28/2019 4:08 PM INDICATION: ^sob ^[id number] ^1615 ^Y COMPARISON: Chest x-ray, 02/19/2019 FINDINGS: Lines and tubes: None Heart size normal. No focal pulmonary opacity, pleural effusion or pneumothorax. Upper abdomen unremarkable. No acute bony abnormality. IMPRESSION: No evidence for acute disease or significant change. Signed by: Dr. Luis F Esparza M.D. on 07/28/2019 5:04 PM
[2019-07-28 18:05] VITALS: BP 139/74
--- NOTE | 2019-07-28 18:32 | NUR ---
Pt given nhung, patient admitted. Awaiting inpatient bed.
--- NOTE | 2019-07-28 20:05 | NUR ---
RECEIVED PT FROM ER BY WHEELCHAIR, PT IS AAOX3, RR EVEN AND NON-LABORED, ON ROOM AIR. NO S/SX OF DISTRESS NOTED. ORIENTED PT TO PMC AND CALL LIGHT. LEFT PT LAYING SEMI FOWLERS IN BED, BED IN LOW LOCKED POSITION, SIDE RAILS UPX2, CALL LIGHT AND PHONE WITHIN REACH.
[2019-07-28] MEDS: ALBUTEROL/IPRATROPIUM 3 ML NEB NEB SCH ×2 (20:21→23:50)
--- NOTE | 2019-07-28 21:20 | NUR ---
PAGE PALCED FOR MD Blair DIA CONCERNING PT HAVING FREQUENT PVC'S, DOSE OF MAG RECEIVED AND IVF. WAITING FOR CALLBACK.
--- NOTE | 2019-07-28 23:11 | NUR ---
SPOKE WITH MD Blair DIA CONCERNING PT FREQ. PVC'S, IVF'S, HOME MEDICATIONS AND DIET. NEW ORDERS RECEIVED.
[2019-07-29] VITALS (10 sets, daily range): BP systolic 132–152; BP diastolic 59–90
[2019-07-29] MEDS ORDERED: FLONASE ALLERG9.9 ML (00:35)
[2019-07-29] MEDS: ALBUTEROL/IPRATROPIUM 3 ML NEB NEB SCH ×6 (03:00→23:20)
[2019-07-29] MEDS: SODIUM CHLORIDE 0.9% 1000ML 1,000 ML IV SCH ×3 (05:26→22:52)
[2019-07-29] MEDS: METHYLPREDNISOLONE SOD SUCC 40 MG/ML VIAL 1ML IV SCH ×2 (05:59→21:13)
--- NOTE | 2019-07-29 05:59 | NUR ---
CALLED TO PATIENT ROOM BY CALL LIGHT. PT REPORTS HAVING ASTHMA ATTACK. PT FOUND SITTING ON SIDE OF BED TAKING LONG DEEP BREATHES, AUDIBLE EXPIRATORY WHEEZING NOTED. NOTIFIED RESPIRATORY FOR DUONEB TREATMENT. ADMINISTERED 0900 DOSE OF SOLU-MEDROL. PT REQUESTING ATIVAN AT THIS TIME WELL. RESPIRATORY AT BEDSIDE TO START DUONEB TREATMENT. PT VERBALIZED SOME RELIEF. WILL CONTINUE TO MONITOR.
[2019-07-29] MEDS ORDERED: INFLUENZA VIRUS VAC SPLIT INJ 0.5 ML SYR IM SCH (06:00)
[2019-07-29] MEDS: LORAZEPAM 1 MG TAB PO PRN ×2 (06:07→22:51)
[2019-07-29 06:32] LABS: BASOPHILS % 0.1 % (0.0-1.0); HEMATOCRIT 42.5 % (38.2-49.6); HEMOGLOBIN 14.3 g/dL (14.0-18.0); LYMPHOCYTES # (AUTO) 0.8 (1.0-3.2); LYMPHOCYTES % 7.3 % (18.0-39.1); MEAN CORPUSCULAR HEMOGLOBIN 29.8 pg (28-32); MEAN CORPUSCULAR HGB CONC 33.6 g/dL (31-35); MEAN CORPUSCULAR VOLUME 88.5 fL (81-99); MONOCYTES # (AUTO) 0.2 (0.2-0.8); MONOCYTES % 1.8 % (4.4-11.3); NEUTROPHILS # (AUTO) 9.8 (2.1-6.9); NEUTROPHILS % 90.3 % (38.7-80.0); PLATELET COUNT 183 x10e3/uL (140-360); RED CELL DISTRIBUTION WIDTH 13.9 % (11.7-14.4)
[2019-07-29 06:40] LABS: ANION GAP 11.2 mmol/L (8-16); BLOOD UREA NITROGEN 12 mg/dL (7-26); BUN/CREATININE RATIO 17 (6-25); CARBON DIOXIDE 23 mmol/L (22-29); CHLORIDE 107 mmol/L (98-107); EST GLOMERULAR FILTRATION RATE > 60 ML/MIN (60-); GLUCOSE 137 mg/dL (74-118); POTASSIUM 4.2 mmol/L (3.5-5.1); SODIUM 137 mmol/L (136-145)
--- NOTE | 2019-07-29 06:45 | NUR ---
spoke with MD Prince concerning new consultation. New orders received.
--- NOTE | 2019-07-29 07:53 | Diagnostic Imaging Report ---
EXAMINATION: CHEST SINGLE (PORTABLE) COMPARISON: Chest x-ray 07/28/2019, chest x-ray 0922 hours INDICATION: ^asthma ^[id number] ^[id number] DISCUSSION: Frontal view of the chest obtained at 0628 hours. HEART AND MEDIASTINUM: The cardiomediastinal silhouette is unremarkable. No pneumomediastinum. LINES: None. LUNGS: Diffuse hyperinflation. No pneumonia or pulmonary edema. PLEURA: No pleural effusion or pneumothorax. BONES AND SOFT TISSUES: No focal osseous lesion. The soft tissues are normal. IMPRESSION: Diffuse hyperinflation. No infiltrates. Signed by: Dr. Marito Mendoza MD on 07/29/2019 7:50 AM
[2019-07-29] MEDS: SALMETEROL/FLUTICASONE 500/50 INH SCH ×2 (11:29→19:35)
[2019-07-29] MEDS ORDERED: FLUTICASONE PROPIONATE NASAL SPRAY NS SCH (17:00)
--- NOTE | 2019-07-29 17:36 | Consultation ---
DATE OF CONSULTATION: 07/29/2019 REASON FOR CONSULTATION: PVCs. CHIEF COMPLAINT: Asthma exacerbation. HISTORY OF PRESENT ILLNESS: This is a 33-year-old male with history of asthma and anxiety. The patient presents to [facility] ER with complaints of dyspnea, shortness of breath, and wheezing, under treatment for asthmatic attack. It was noted with selineminy on tele. Cardiology is consulted to evaluate the patient. The patient was seen in room, in no acute distress. Reports short of breath with wheezing. He took his inhalers, which are albuterol and Advair without much improvement, therefore came to the ER for further evaluation. The patient denies any dizziness, lightheadedness, chest pain, or palpitations. Reports being very active and without any anginal symptoms. PAST MEDICAL HISTORY: Asthma and anxiety. PAST SURGICAL HISTORY: Denies any surgeries. FAMILY HISTORY: Mother with history of brain cancer. Father alive with history of CHF. SOCIAL HISTORY: He is . 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 Denies any alcohol or tobacco use. HOME MEDICATIONS: Albuterol and Advair. ALLERGIES: NO KNOWN ALLERGIES. REVIEW OF SYSTEMS: GENERAL: Denies any weight changes, fatigue, weakness, fevers, chills, or night sweats. SKIN: No rashes or bruises. HEENT: No nausea, vomiting, vision changes, blurred vision, epistaxis, sore throat, swollen neck, or stiff neck. CARDIAC: Denies any chest pain, palpitations, dyspnea on exertion, orthopnea, PND, or lower extremity edema. RESPIRATORY: Positive for shortness of breath, wheezing, and cough. No hemoptysis. GI: Reports good appetite. No nausea, vomiting, diarrhea, constipation, melena, hematochezia, or bloody or tarry stools. URINARY: Denies any frequency, urgency, or hematuria. VASCULAR: Denies lower extremity edema or claudication. MUSCULOSKELETAL: Denies any muscle weakness. Denies any joint pains or back pains. NEUROLOGIC: Denies any weakness, paralysis, fainting, blackout, or seizures. HEMATOLOGY: Denies any bruising or bleeding. ENDOCRINE: Denies any heat or cold intolerance, or any polyuria, polydipsia, or polyphagia. PHYSICAL EXAMINATION: VITAL SIGNS: Temperature 95.7, pulse 94, respiratory rate 17, and blood pressure 148/77. GENERAL: Appears stated age, reliable informant, in no acute distress. SKIN: No rashes or bruises. HEENT: Normocephalic. Pupils are equal and reactive. Extraocular movement intact. Trachea midline. No JVD. No carotid bruit noted. HEART: Regular rate and rhythm. No murmurs, clicks, or gallops. LUNGS: Bilateral breath sounds with wheezes throughout. Good airway entry and exit. ABDOMEN: Soft, nontender, and nondistended. No organomegaly noted. MUSCULOSKELETAL: Good muscle strength throughout. No lower extremity swelling noted. VASCULAR: +2 radial pulses bilaterally, +2 DP and PT pulses bilaterally. NEUROLOGIC: Cranial nerves II through XII seem intact. LABORATORY DATA: White count 10, hemoglobin 15, hematocrit 45, and platelets 207. Chemistry; sodium 140, potassium 3.8, chloride 105, BUN 12, creatinine 0.7, calcium 9.3, and Mag 1.9. Chest x-ray, no acute abnormalities. EKG, sinus rhythm with PVC. ASSESSMENT: 1. Asthma exacerbation. 2. Premature ventricular contractions/bigeminy. PLAN: The patient presents to [facility] with complaints of shortness of breath and wheezing, being treated for asthma attack on nebs, steroids as per primary. Noted to be in bigeminy on tele, currently in sinus rhythm. We will check TSH. Echo to evaluate heart function and structure. Continue telemonitoring. Replete potassium as indicated and magnesium as indicated. We will continue to monitor the patient. Further recommendations as clinical course dictates. Thank you very much for this consult. Dictated by Ben Regan NP Kristin Prince MD DC/MODL /[id number]
--- NOTE | 2019-07-29 19:05 | NUR ---
Received pt in bed with eyes open. Resp even and unlabored. Ns @ 125 infusing to Lt forearm without difficulties. No c/o pain/discomfort at this time. Call light in reach. bed in low and locked position
[2019-07-29] MEDS: FLUTICASONE PROPIONATE NASAL SPRAY NS SCH (21:13)
[2019-07-30] VITALS (8 sets, daily range): BP systolic 126–153; BP diastolic 58–67
[2019-07-30] MEDS ORDERED: MAGNESIUM/ALUMINUM/SIMETHICONE 30 ML UDC PO PRN (00:30)
[2019-07-30] MEDS: ALBUTEROL/IPRATROPIUM 3 ML NEB NEB SCH ×6 (03:22→23:11)
--- NOTE | 2019-07-30 06:22 | Consultation ---
DATE OF CONSULTATION: 07/29/2019 Pulmonary Medicine Consult HISTORY OF PRESENT ILLNESS: The patient is a pleasant 33-year-old gentleman with asthma. The patient came to the hospital with severe onset shortness of breath. While he has been worsening for the last 3 days, it was acutely worse dyspnea today. The patient simultaneously has noted that his GERD has been worse recently. The patient came to emergency room. In the emergency room, the patient was seen to have refractory to the initial steroids and nebulized treatments, although these did make him better. He was only able to speak 1 or 2 words at a time when he came in the hospital and slowly did improve. He had suboptimally. He was admitted. The patient of note had a chest x-ray, that was with clear lung mcintyre. The patient was diagnosed with asthma in his youth. He was born normally as far as he knows. He does not have significant allergies. He has very bad GERD. There is no known sleep apnea. He is on albuterol and Advair 100/50. The patient has been to the ICU 4 times in his life and has had many hospitalizations. PAST MEDICAL HISTORY: Allergies, asthma from youth, very severe GERD. MEDICATIONS: Medication list reviewed per the chart record. ALLERGIES: NO KNOWN DRUG ALLERGIES. SOCIAL HISTORY: No smoking. No drinking. No drugs. FAMILY HISTORY: Noncontributory. REVIEW OF SYSTEMS: GENERAL: No weight loss. HEENT: No mouth ulcers. Ophthalmologic, no floaters. ENDOCRINE: No known thyroid disease. CARDIAC: Without heart attack. PULMONARY: No hemoptysis. : No blood in urine. GI: No constipation. DERMATOLOGIC: No rash. MUSCULOSKELETAL: Mild arthritis. OBJECTIVE: VITAL SIGNS: Afebrile, vital signs noted, reviewed per the chart record. GENERAL: In no acute distress, alert and calm. HEENT: Normocephalic and atraumatic. NECK: Supple. Throat midline. LUNGS: Bilateral air entry, at the time of my evaluation, there was no further wheezing, good air entry. ABDOMEN: Soft, nontender. CARDIAC: S1 and S2. No murmurs, rubs, or gallops. EXTREMITIES: No clubbing, no cyanosis, no edema. INTEGUMENT: No rash. No purpura. LABORATORY DATA: White count 10.8. The patient presented with 500 eosinophils per high-powered field on July 28, 2019. On January 07, 2016, the patient with 1300 eosinophils in serum. Creatinine is 0.7. Previous LFTs were slightly elevated. LFTs had also been normal on occasion. The patient had a rash allergy testing in our facility, which demonstrates multiple positives to almost all checked antigens. His allergy testing was performed on July 20, 2013. On March 08, 2013, IgA was 796. No CT of chest at our facility. IMPRESSION AND PLAN: 1. Acute asthma with exacerbation. 2. Severe gastroesophageal reflux disease. 3. Severe allergies. 4. Premature ventricular contractions/bigeminy. Given initial steroids. Give bronchodilators. Check TSH. Evaluate echocardiogram. 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 The patient should also have consideration for biologic asthmatic therapy and probably escalation of his Advair dose, be on low dosing. Thank you very much, Dr. Guidry, for this consult. Please call for questions. MD SUNI Shelton/JOSLYN /[id number]
[2019-07-30] MEDS: SALMETEROL/FLUTICASONE 500/50 INH SCH ×2 (07:23→19:40)
[2019-07-30] MEDS: FAMOTIDINE 20 MG TAB PO SCH ×2 (07:30→17:46)
[2019-07-30] MEDS: METHYLPREDNISOLONE SOD SUCC 40 MG/ML VIAL 1ML IV SCH (09:00)
[2019-07-30] MEDS: FLUTICASONE PROPIONATE NASAL SPRAY NS SCH ×2 (09:00→21:08)
[2019-07-30] MEDS: SODIUM CHLORIDE 0.9% 1000ML 1,000 ML IV SCH ×3 (11:16→17:45)
[2019-07-30] MEDS: LORAZEPAM 1 MG TAB PO PRN ×2 (15:28→21:54)
--- NOTE | 2019-07-30 19:14 | NUR ---
Pulmonary Medicine DATE 07/30/2019 SUBJECTIVE: NS IVF ongoing RA fio2 less wheezing walked REVIEW OF SYSTEMS: no rash, no bleed OBJECTIVE: VITAL SIGNS: vital signs noted, reviewed per the chart record. GENERAL: no acute distress, alert and calm. HEENT: Normocephalic and atraumatic. NECK: Supple. Throat midline. LUNGS: Bilateral air entry good, no wheezing ABDOMEN: Soft, nontender. CARDIAC: S1 and S2. No murmurs, rubs, or gallops. EXTREMITIES: No clubbing, no cyanosis, no edema. INTEGUMENT: No rash. No purpura. LABORATORY DATA: no new updates IMPRESSION AND PLAN: 1. Acute asthma with exacerbation. 2. Severe gastroesophageal reflux disease. 3. Severe allergies. 4. Premature ventricular contractions/bigeminy. Given initial steroids, wean Give bronchodilators. The patient probably deserves to have a CT chest if he has not had in the past The patient should have consideration for biologic asthmatic therapy His outpatient Advair dose should be increased, as he is on low dosing? Thank you very much, Dr. Guidry, for this consult. Please call for questions.
[2019-07-30] MEDS ORDERED: POTASSIUM CHLORIDE 20 MEQ TAB CR PO NR (19:30)
[2019-07-31] VITALS: BP 140/66
[2019-07-31] MEDS: ALBUTEROL/IPRATROPIUM 3 ML NEB NEB SCH ×3 (03:24→11:05)
[2019-07-31] MEDS: SODIUM CHLORIDE 0.9% 1000ML 1,000 ML IV SCH (03:24)
[2019-07-31 04:00] VITALS: BP 132/66
--- NOTE | 2019-07-31 07:00 | NUR ---
Received patient lying in bed with eyes open. Denies pain. Respiration even and unlabored without SOB. Patient is currently room air.
[2019-07-31 07:47] VITALS: BP 117/58
[2019-07-31] MEDS ORDERED: PREDNISONE 20 MG TAB PO SCH (09:00)
[2019-07-31 09:59] VITALS: BP 117/58
[2019-07-31] MEDS: FLUTICASONE PROPIONATE NASAL SPRAY NS SCH (10:10)
[2019-07-31] MEDS: FAMOTIDINE 20 MG TAB PO SCH (10:10)
[2019-07-31] MEDS ORDERED: PREDNISONE10 MG PO (10:12)
[2019-07-31] MEDS ORDERED: PEPCID20 MG PO (10:12)
[2019-07-31] MEDS ORDERED: PROAIR HFA INH8.5 GM INH (10:17)
[2019-07-31] MEDS ORDERED: ONDANSETRON HCL 4 MG ORAL DISINTEGRATING TAB PO PRN (10:45)
[2019-07-31] MEDS ORDERED: INFLUENZA VIRUS VAC SPLIT INJ 0.5 ML SYR IM SCH (11:30)
--- NOTE | 2019-07-31 11:53 | NUR ---
PIV to left AC discontinued. Catheter tip intact, no bleeding noted. Adult asthma attack education provided, verbalized understanding. Home med prescription given. All personal belongings are carried. Patient accompanied to private vehicle. Respiration even and unlabored. Patient is alert and oriented and not given any medication that may impair his driving.
--- NOTE | 2019-07-31 12:06 | NUR ---
message left on machine of Andres Issa, father of patient about prescription being missed on discharge. awaiting return call.
--- NOTE | 2019-07-31 21:13 | NUR ---
PULMONARY ATTENDING I saw and examined the patient with YENI Benavidez on 07/31/19. I agree with her findings. Continue asthma therapy, discharge
== END 2019-07-31 11:52 | disposition home or self-care (01) | DRG 203 ==
LOC: ER 15:09 → ERHOLD 15:54 → MED/SURG 20:05 → OBSVTOIN 07-29 13:25
DX: J45.901 Unspecified asthma with (acute) exacerbation (principal); F41.9 Anxiety disorder, unspecified; K21.9 Gastro-esophageal reflux disease without esophagitis; I49.3 Ventricular premature depolarization; J30.2 Other seasonal allergic rhinitis
CPT/HCPCS: 36415; 71045; 80048; 80053; 83735; 84443; 85025; 87400; 93005; 93306; 94664; 99284; G0378; J2405; J2920; J2930; J3475; J7030; J7512

== ENCOUNTER 2019-10-29 10:00 | Emergency (ER) | payer OTHER ==
[~2019-10-29] VITALS: Ht 193 cm; Wt 102.1 kg
[~2019-10-29 10:00] MED LIST changes: +FLONASE ALLERG9.9 ML
--- OUTSIDE RECORDS SUMMARY | 2019-10-29 10:09 | XMS REPORT ---
Author Author [facility] t Organization [facility] Address [address] [place] [address] Phone Unavailable Care Team Providers Care Financial Assistance Advisor Name Role Phone Genna WHEAT III PCP DIA, SOUHEIL Attphys Unavailable RICHARD MULLINS Attphys Unavailable ZEBALLOS, R YUN Attphys Unavailable HUSBY, T RD Attphys Unavailable FABIÁN, S AMBICA Attphys Unavailable MANEEVESE, V MIKE Attphys Unavailable SWEET, A LAIRD Attphys Unavailable DIA, SOUHEIL Admphys Unavailable RICHARD MULLINS Admphys Unavailable Payers Payer Name Policy Type Policy Number Effective Date Expiration Date [facility]ios Noriega [facility] [id number] [facility] [employer] [id number] [facility] Problems Condition Name Condition Details Condition Category Status Onset Date Resolution Date Last Treatment Date Treating Clinician Comments Source Exacerbation of asthma Asthma attack Problem Active 2014-06-11 00:00:00 [facility] Asthma with acute exacerbation Asthma exacerbation Problem Act alexandra 2014-06-11 00:00:00 [facility] Cough Cough Problem Active [facility] Dyspnea Dyspnea Problem Active [facility] Concussion Head concussion Problem Active [facility] Allergies, Adverse Reactions, Alerts Allergy Name Allergy Type Status Severity Reaction(s) Onset Date Inacti ve Date Treating Clinician Comments Source No Known Allergies DA Active U 2017-12-04 00:00:00 [facility] Medications Ordered Medication Name Filled Medication Name Start Date Stop Da te Current Medication? Ordering Clinician Indication Dosage Frequency Signature (SIG) Comments Components Source Albuterol Sulfate (Proair Hfa Inhaler*) 8.5 Gm Inh Alb uterol Sulfate (Proair Hfa Inhaler*) 8.5 Gm Inh 2019-07-31 00:00:00 Yes Broderick Escobar Md 2 Every 4 Hours as needed for Shortness Of Breath [facility] Famotidine (Pepcid) 20 Mg Tablet Famotidine (Pepcid) 20 Mg T ablet 2019-07-31 00:00:00 Yes Broderick Escobar Md 20 Twice A Day [facility] Prednisone 10 Mg Tab Prednisone 10 Mg Tab 2019-07-31 00:00:00 Yes Broderick Escobar Md 0 Daily [facility] Benzonatate (Tessalon Perle) 100 Mg Capsule, 100 Mg Or al Benzonatate (Tessalon Perle) 100 Mg Capsule, 100 Mg Oral 2018-02-02 00:00:00 2019-02-19 00:00:00 No Fidel Alamo Md 100 Three Times A Day [facility] Doxycycline Hyclate (Vibramycin) 100 Mg Capsule, 100 M g Oral Doxycycline Hyclate (Vibramycin) 100 Mg Capsule, 100 Mg Oral 2018-02-02 00:00:00 2019-02-19 00 :00:00 No Fidel Alamo Md 100 Every 12 Hours [facility] Famotidine 20 Mg Tab, 20 Mg Oral Famotidine 20 Mg Tab, 20 Mg Oral 2018-02-02 00:00:00 2019-02-19 00:00:00 No Fidel Alamo Md 20 Twic e Daily Before Meals [facility] Guaifenesin/Dextromethorphan 10 Ml Liqd, 10 Ml Oral Gu aifenesin/Dextromethorphan 10 Ml Liqd, 10 Ml Oral 2018-02-02 00:00:00 2019-02-19 00:00:00 No Cortez Alamo Md 10 Every 6 Hours [facility] Loratadine 10 Mg Tablet, 10 Mg Oral Loratadine 10 Mg Tablet, 10 Mg Oral 2018-02-02 00:00:00 2019-02-19 00:00:00 Laura Alamo Md 10 Daily [facility] Prednisone 20 Mg Tab, 20 Mg Oral Prednisone 20 Mg Tab, 20 Mg Oral 2018-02-02 00:00:00 2019-02-19 00:00:00 Laura Alamo Md 20 Every 12 Hours [facility] Doxycycline Monohydrate 100 Mg Tablet, 100 Mg Oral Dox ycycline Monohydrate 100 Mg Tablet, 100 Mg Oral 2016-01-10 00:00:00 2018-01-31 00:00:00 Laura Alamo Md 100 Every 12 Hours [facility] Famotidine (Pepcid) 20 Mg Tablet, 20 Mg Oral Famotidin e (Pepcid) 20 Mg Tablet, 20 Mg Oral 2016-01-10 00:00:00 2018-01-31 00:00:00 Laura Alamo Md 20 Twice Daily Before Meals [facility] Guaifenesin/Dextromethorphan 1 Each Tabsr, 1 Each Oral Guaifenesin/Dextromethorphan 1 Each Tabsr, 1 Each Oral 2016-01-10 00:00:00 2018-01-31 00:00:00 Laura Alamo Md 1 Three Times A Day [facility] Loratadine 10 Mg Tab, 10 Mg Oral Loratadine 10 Mg Tab, 10 Mg Oral 2016-01-10 00:00:00 2018-01-31 00:00:00 Laura Alamo Md 10 Daily [facility] Prednisone 20 Mg Tab, 40 Mg Oral Prednisone 20 Mg Tab, 40 Mg Oral 2016-01-10 00:00:00 2018-01-31 00:00:00 Laura Alamo Md 40 Every 12 Hours [facility] Prednisone 20 Mg Tab, 40 Mg Oral Prednisone 20 Mg Tab, 40 Mg Oral 2015-09-13 00:00:00 2016-01-10 00:00:00 Laura Alamo Md 40 Every 12 Hours [facility] Doxycycline Calcium (Vibramycin) 50 Mg/5 Ml Syrup, 100 Mg Oral Doxycycline Calcium (Vibramycin) 50 Mg/5 Ml Syrup, 100 Mg Oral 2015-09-13 00:00:00 2015-10-05 00:00:00 No Fidel Alamo Md 100 Every 12 Hour s [facility] Famotidine (Pepcid) 20 Mg Tablet, 20 Mg Oral Famotidin e (Pepcid) 20 Mg Tablet, 20 Mg Oral 2015-09-13 00:00:00 2015-10-05 00:00:00 Laura Alamo Md 20 Twice A Day [facility] Guaifenesin/Dextromethorphan (Guaifenesin Dm Syrup) 11 8 Ml Syrup, 10 Ml Oral Guaifenesin/Dextromethorphan (Guaifenesin Dm Syrup) 118 Ml Syrup, 10 Ml Oral 2015-09-13 00:00:00 2015-10-05 00:00:00 Laura Alamo Md 10 Every 8 Hours [facility] Loratadine 10 Mg Tab, 10 Mg Oral Loratadine 10 Mg Tab, 10 Mg Oral 2015-09-13 00:00:00 2015-10-05 00:00:00 Laura Alamo Md 10 Daily [facility] Fluticasone Propionate (Flonase Allergy Relief) 9.9 Ml [place].susp Fluticasone Propionate (Flonase Allergy Relief) 9.9 Ml [place].susp Yes 1 Twice A Day [facility] Lorazepam (Ativan) 2 Mg Tablet Lorazepam (Ativan) 2 Mg Tablet Yes 1 Twice A Day as needed for Anxiety [facility] Salmeterol Xinafoate/Fluticasone (Advair 500/50*) 1 Ea Aerp Salmeterol Xinafoate/Fluticasone (Advair 500/50*) 1 Ea Aerp Yes 1 Every 12 Hours [facility] Albuterol Sulfate (Proair Hfa Inhaler*) 8.5 Gm Inh, Inhalation Albuterol Sulfate (Proair Hfa Inhaler*) 8.5 Gm Inh, Inhalation 2 00:00:00 No Every 2-3 Hours [facility] Atrovent Nasal [place] , 2 Sprays Inhalation Atrovent Na maribeth [place] , 2 Sprays Inhalation 2019-07-29 00:00:00 No 2 Every 12 Hour s [facility] Levofloxacin (Levaquin) 500 Mg Tablet, 500 Mg Oral Lev ofloxacin (Levaquin) 500 Mg Tablet, 500 Mg Oral 2019-07-29 00:00:00 No 500 D aily [facility] Peep Sea Nasal [place] , 2 Inh Inhalation Peep Sea Nasal [place] , 2 Inh Inhalation 2019-07-29 00:00:00 No 2 Every 4 Hours [facility] Prednisone 10 Mg Tab, 10 Mg Oral Prednisone 10 Mg Tab, 10 Mg Ora l 2019-07-29 00:00:00 No 10 Use As Directed [facility] Fluticasone/Salmeterol (Advair 250-50 Di skus) 1 Each Disk.w.dev, 1 Inh Inhalation Fluticasone/Salmeterol (Advair 250-50 Di skus) 1 Each Disk.w.dev, 1 Inh Inhalation 2019-02-23 00:00:00 No 1 Twice A D ay [facility] Montelukast Sodium (Singulair) 10 Mg Tablet, 10 Mg Ora l Montelukast Sodium (Singulair) 10 Mg Tablet, 10 Mg Oral 2019-02-19 00:00:00 No 10 Daily [facility] Budesonide/Formoterol Fumarate (Symbicor t 160-4.5 Mcg Inhaler) 10.2 Gm Hfa.aer.ad, 10.2 GmInhalation Budesonide/Formoterol Fumarate (Symbicor t 160-4.5 Mcg Inhaler) 10.2 Gm Hfa.aer.ad, 10.2 GmInhalation 2015-10-05 00:00:0 0 No 10.2 Twice A Day [facility] Lorazepam (Ativan) 2 Mg Tablet, 4 Mg Oral Lorazepam (A tivan) 2 Mg Tablet, 4 Mg Oral 2015-10-05 00:00:00 No 4 Daily [facility] Montelukast Sodium 10 Mg Tablet, 10 Mg Oral Montelukas t Sodium 10 Mg Tablet, 10 Mg Oral 2015-10-05 00:00:00 No 10 Daily [facility] Prednisone 10 Mg Tab, 60 Mg Oral Prednisone 10 Mg Tab, 60 Mg Ora l 2015-04-26 00:00:00 No 60 Daily [facility] Prednisone 10 Mg Tab, Prednisone 10 Mg Tab, 2015-04-26 00:00:00 No [facility] Albuterol Sulf (Albuterol Sulfate) 4 Mg Tab, 2 Mg Oral Albuterol Sulf (Albuterol Sulfate) 4 Mg Tab, 2 Mg Oral 2015-03-05 00:00:00 No 2 Twice A Day [facility] Salmeterol Xinafoate/Fluticasone (Advair 500/50*) 1 Ea Aerp, 1 Puff Inhalation Salmeterol Xinafoate/Fluticasone (Advair 500/50*) 1 Ea Aerp, 1 Puff Inhalation 2015-03-05 00:00:00 No 1 Twice A Day [facility] Montelukast Sodium (Singulair) 10 Mg Tablet, 10 Mg [facility] Montelukast Sodium (Singulair) 10 Mg Tablet, 10 Mg Oral 2014-08-07 00:00:00 No 10 Bedtime [facility] Fluticasone/Salmeterol (Advair 250-50 Diskus) 1 Each D isk.w.dev, 1 Inh Oral Fluticasone/Salmeterol (Advair 250-50 Diskus) 1 Each Disk.w.dev, 1 Inh Oral 2013-07-21 00:00:00 No 1 Twice A Day [facility] Albuterol Sulfate (Ventolin Hfa) 18 Gm Hfa.aer.ad, 18 Gm Inhalation Albuterol Sulfate (Ventolin Hfa) 18 Gm Hfa.aer.ad, 18 Gm Inhalation 14-07-19 00:00:00 No 18 Every 2-3 Hours [facility] Beclomethasone Dipropionate (Qvar) 7.3 Gm Aer.w.adap, Inhalation Beclomethasone Dipropionate (Qvar) 7.3 Gm Aer.w.adap, Inhalation 2013-07-20 00:00:00 No Twice A Day [facility] Prednisone 10 Mg Tab, 10 Mg Oral Prednisone 10 Mg Tab, 10 Mg Ora l 2013-07-20 00:00:00 No 10 Twice A Day [facility] Budesonide/Formoterol Fumarate (Symbicor t 160-4.5 Mcg Inhaler) 6 Gm Hfa.aer.ad, 6 Gm Inhalation Budesonide/Formoterol Fumarate (Symbicor t 160-4.5 Mcg Inhaler) 6 Gm Hfa.aer.ad, 6 Gm Inhalation 2013-03-07 00:00:00 No 6 Daily [facility] Fluticasone Propionate (Flonase) 16 Gm [place].susp, 16 Gm Nasal Fluticasone Propionate (Flonase) 16 Gm [place].susp, 16 Gm Nasal 2013-03-07 00:00:0 0 No 16 Daily [facility] Procedures Procedure Date / Time Performed Performing Clinician Sourc e CT maxillofacial area wo contrast 2019-02-22 00:00:00 KENNETH ALVAREZ IS [facility] Encounters Start Date/Time End Date/Time [facility] ID Source 2019-07-29 13:25:00 2019-07-31 11:52:00 Discharged Inpatient 1 YESENIA DIA [facility] [id number] [facility] 2019-02-22 08:02:00 2019-02-23 12:28:00 Discharged Inpatient 1 BROOKPRASHANTH RICHARD [facility] [id number] [facility] 2019-01-28 08:52:00 2019-01-28 14:20:00 Departed Emergency Room 1 YUN LE [facility] [id number] [facility] 2018-10-23 17:08:00 2018-10-23 19:30:00 Departed Emergency Room [address] RD LOPEZ [facility] [id number] [facility] 2018-05-21 21:48:00 2018-05-22 03:11:00 Departed Emergency Room 1 EZEQUIEL LOCKWOOD [facility] [id number] [facility] 2018-02-25 14:30:00 2018-02-25 17:53:00 Departed Emergency Room 1 MIKE CHRISTINE [facility] [id number] [facility] 2018-01-31 10:10:00 2018-02-02 09:51:00 Discharged Inpatient (obs) 1 REGULO BENTLEY [facility] [id number] [facility] Results Test Description Test Time Test Comments Results Result Comments Source Thyroid Stimulating Hormone (TSH) 2019-07-29 10:59:00 Test Item Thyroid Stimulating Hormone (TSH) (test code = 85909-2) 0.465 0.350-4.940 [facility]2019-07-29 07:49:00 [place] [address] Patient Name: LAMBERTO FROST MR #: [id number] : 1985 Age/Sex: 33/M Req #: [id number] Adm Physician: YESENIA DIA MD Ordered by: PHILIPPE ESPARZA [employer] Report #: [id number] Location: MED/SURG Room/Bed: [facility] Procedure: [id number] DX/CHEST SINGLE (PORTABLE) Exam Date: 07/29/19 Exam Time: 0715 REPORT STATUS: Signed EXAMINATION: CHEST SINGLE (PORTABLE) COMPARISON: Chest x-ray 07/28/2019, chest x-ray 0922 hours INDICATION: asthma [id number] DISCUSSION: Frontal view of the chest obtained at 0628 hours. HEART AND MEDIASTINUM: The cardiomediastinal silhouette is unremarkable. No pneumomediastinum. LINES: None. LUNGS: Diffuse hyperinflation. No pneumonia or pulmonary edema. PLEURA: No pleural effusion or pneumothorax. BONES AND SOFT TISSUES: No focal osseous lesion. The soft tissues are no rmal. IMPRESSION: Diffuse hyperinflation. No infiltrates. Randi d by: Dr. Marito Pena MD on 07/29/2019 7:50 AM Dictated By: JAYDA PENA MD 9 Transcribed By: BRIA on 07/29/19749 COPY TO: PHILIPPE ESPARZA NP Magnesium Dstun6311-73-97 06:58:00* Test Item Value Reference Range Interpretation Comments Magnesium Level (test code = 46083-3) 1.9 1.3-2.1 [facility] Mdjes5866-84-66 06:41:00* Test Item Value Reference Range Interpretation Comments Sodium Level (test code = 2951-2) 137 136-145 [facility] Rlzxb6408-21-66 06:41:00* Test Item Value Reference Range Interpretation Comments Potassium Level (test code = 2823-3) 4.2 3.5-5.1 [facility] HospitalChloride Ojqve6568-65-26 06:41:00* Test Item Value Reference Range Interpretation Comments Chloride Level (test code = 2075-0) 107 98-107 [facility] HospitalCarbon Dioxide Getrw6619-41-67 06:41:00* Test Item Value Reference Range Interpretation Comments Carbon Dioxide Level (test code = 2028-9) 23 22-29 [facility] HospitalAnion Zng7362-31-14 06:41:00* Test Item Value Reference Range Interpretation Comments Anion Gap (test code = 63700-3) 11.2 8-16 [facility] HospitalBlood Urea Hbuqfgqa5811-93-67 06:41:00* Test Item Value Reference Range Interpretation Comments Blood Urea Nitrogen (test code = 3094-0) 12 7-26 [facility] HospitalCreatinine2020-02-29 06:41:00* Test Item Value Reference Range Interpretation Comments Creatinine (test code = 2160-0) 0.70 0.72-1.25 L [facility] HospitalBUN/Creatinine Jnwar1640-50-87 06:41:00* Test Item Value Reference Range Interpretation Comments BUN/Creatinine Ratio (test code = 3097-3) 17 6-25 [facility] HospitalEstimat Glomerular Filtration Rate 2019-07-29 06:41:00* Test Item Value Reference Range Interpretation Comments Estimat Glomerular Filtration Rate (test code = 324221750) > 60 >60 Ranges were taken from the National Kidney Disease Education Program and the [facility] Kidney Foundation literature.Reference ranges:60 or greater: Gfgjth76-38 ( for 3 consecutive months): Chronic kidney disease 15 or less: Kidney failureParkview Regional HospitalGlucose Qlkil9219-42-25 06:41:00* Test Item Value Reference Range Interpretation Comments Glucose Level (test code = YEN4251) 137 74-118 H [facility] HospitalCalcium Iknpe2477-52-89 06:41:00* Test Item Value Reference Range Interpretation Comments Calcium Level (test code = 64639-0) 9.0 8.4-10.2 [facility] HospitalWhite Blood Wcrfn6437-08-92 06:34:00* Test Item Value Reference Range Interpretation Comments White Blood Count (test code = 6690-2) 10.81 4.8-10.8 H [facility] HospitalRed Blood Zdtcb3050-54-44 06:34:00* Test Item Value Reference Range Interpretation Comments Red Blood Count (test code = 789-8) 4.80 4.3-5.7 [facility] HospitalHemoglobin2020-02-29 06:34:00* Test Item Value Reference Range Interpretation Comments Hemoglobin (test code = 74917-8) 14.3 14.0-18.0 [facility] HospitalHematocrit2020-02-29 06:34:00* Test Item Value Reference Range Interpretation Comments Hematocrit (test code = 4544-3) 42.5 38.2-49.6 [facility] HospitalMean Corpuscular Yeyzyx8525-66-56 06:34:00* Test Item Value Reference Range Interpretation Comments Mean Corpuscular Volume (test code = 787-2) 88.5 81-99 [facility] HospitalMean Corpuscular Gxdjuyefri2306-53-87 06:34:00* Test Item Value Reference Range Interpretation Comments Mean Corpuscular Hemoglobin (test code = 785-6) 29.8 28-32 [facility] HospitalMean Corpuscular Hemoglobin Concent 2019-07-29 06:34:00* Test Item Value Reference Range Interpretation Comments Mean Corpuscular Hemoglobin Concent (test code = 786-4) 33.6 31-35 [facility] HospitalRed Cell Distribution Amxik5261-90-15 06:34:00* Test Item Value Reference Range Interpretation Comments Red Cell Distribution Width (test code = 24367-7) 13.9 11.7 -14.4 [facility] HospitalPlatelet Qhumm3402-59-24 06:34:00* Test Item Value Reference Range Interpretation Comments Platelet Count (test code = 777-3) 183 140-360 [facility] HospitalNeutrophils (%) (Auto)2019-07-29 06:34:00 * Test Item Value Reference Range Interpretation Comments Neutrophils (%) (Auto) (test code = 25602-7) 90.3 38.7-80.0 H [facility] HospitalLymphocytes (%) (Auto)2019-07-29 06:34:00 * Test Item Value Reference Range Interpretation Comments Lymphocytes (%) (Auto) (test code = 736-9) 7.3 18.0-39.1 L [facility] HospitalMonocytes (%) (Auto)2019-07-29 06:34:00* Test Item Value Reference Range Interpretation Comments Monocytes (%) (Auto) (test code = 5905-5) 1.8 4.4-11.3 L [facility] HospitalEosinophils (%) (Auto)2019-07-29 06:34:00 * Test Item Value Reference Range Interpretation Comments Eosinophils (%) (Auto) (test code = 713-8) 0.0 0.0-6.0 [facility] HospitalBasophils (%) (Auto)2019-07-29 06:34:00* Test Item Value Reference Range Interpretation Comments Basophils (%) (Auto) (test code = 706-2) 0.1 0.0-1.0 [facility] HospitalIM GRANULOCYTES %2019-07-29 06:34:00* Test Item Value Reference Range Interpretation Comments IM GRANULOCYTES % (test code = IM GRANULOCYTES %) 0.5 0.0- 1.0 [facility] HospitalNeutrophils # (Auto)2019-07-29 06:34:00* Test Item Value Reference Range Interpretation Comments Neutrophils # (Auto) (test code = 751-8) 9.8 2.1-6.9 H [facility] HospitalLymphocytes # (Auto)2019-07-29 06:34:00* Test Item Value Reference Range Interpretation Comments Lymphocytes # (Auto) (test code = 04555-9) 0.8 1.0-3.2 L [facility] HospitalMonocytes # (Auto)2019-07-29 06:34:00* Test Item Value Reference Range Interpretation Comments Monocytes # (Auto) (test code = 742-7) 0.2 0.2-0.8 [facility] HospitalEosinophils # (Auto)2019-07-29 06:34:00* Test Item Value Reference Range Interpretation Comments Eosinophils # (Auto) (test code = 711-2) 0.0 0.0-0.4 [facility] HospitalBasophils # (Auto)2019-07-29 06:34:00* Test Item Value Reference Range Interpretation Comments Basophils # (Auto) (test code = 704-7) 0.0 0.0-0.1 [facility] HospitalAbsolute Immature Granulocyte (auto 2019-07-29 06:34:00* Test Item Value Reference Range Interpretation Comments Absolute Immature Granulocyte (auto (carmen t code = Absolute Immature Granulocyte (auto) 0.05 0-0.1 [facility] HospitalInfluenza Virus Types A,B Antigen 2019-07-28 20:22:00* Test Item Value Reference Range Interpretation Comments Influenza Virus Types A,B Antigen (test code = 62406-0) NEGATIVE NEGATIVE [facility]2019-07-28 17:03:00 [facility] [address] [place] [address] Patient Name: LAMBERTO FROST MR #: [id number] : 1985 Age/Sex: 33/M Req #: [id number] Adm Physician: YESENIA DIA MD Ordered by: MELODY GONZALEZ MD Report #: [id number] Location: [facility] Room/Bed: [place] [address] Procedure: [id number] DX/CHEST SINGLE (PORTABLE) Exam Date: 07/28/19 Exam Time: 1615 REPORT STATUS: Signed EXAM: CHEST SINGLE (PORTABLE) DATE: 07/28/2019 4:08 PM IN DICATION: sob [id number] Y COMPARISON: Chest x-ray, 02/19/2019 FINDINGS: Lines and tubes: None Heart size normal. No focal pulmonary opacity, pleural effusion or pneumothorax. Upper abdomen unremarkable. No acute bony abnormality. IMPRESSION: No evidence for a cute disease or significant change. Signed by: Dr. Rd Esparza M.D. on 5:04 PM Dictated By: RD ESPARZA MD 03 Transcribed By: BRIA on 07/28/191703 COPY TO: MELODY GONZALEZ MD Total Odccldrwu7251-45-47 16:20:00* Test Item Value Reference Range Interpretation Comments Total Bilirubin (test code = 1975-2) 0.7 0.2-1.2 [facility] HospitalAspartate Amino Transf (AST/SGOT) 2019-07-28 16:20:00* Test Item Value Reference Range Interpretation Comments Aspartate Amino Transf (AST/SGOT) (test code = Aspartate Amino Transf (AST/SGOT)) 56 5-34 H [facility] HospitalAlanine Aminotransferase (ALT/SGPT) 2019-07-28 16:20:00* Test Item Value Reference Range Interpretation Comments Alanine Aminotransferase (ALT/SGPT) (test code = 1742-6) 111 0-55 H [facility] HospitalTotal Eivdlop3861-17-00 16:20:00* Test Item Value Reference Range Interpretation Comments Total Protein (test code = 2885-2) 6.8 6.5-8.1 [facility] HospitalAlbumin2020-02-28 16:20:00* Test Item Value Reference Range Interpretation Comments Albumin (test code = 1751-7) 4.3 3.5-5.0 [facility] HospitalGlobulin2020-02-28 16:20:00* Test Item Value Reference Range Interpretation Comments Globulin (test code = 65709-6) 2.5 2.3-3.5 [facility] HospitalAlbumin/Globulin Psmdr8251-45-77 16:20:00 * Test Item Value Reference Range Interpretation Comments Albumin/Globulin Ratio (test code = 1759-0) 1.7 0.8-2.0 [facility] HospitalAlkaline Zjoixdrnzhl5072-05-45 16:20:00* Test Item Value Reference Range Interpretation Comments Alkaline Phosphatase (test code = 6768-6) 76 40-150 [facility] Tpnom0554-70-25 06:37:00* Test Item Value Reference Range Interpretation Comments Sodium Level (test code = 2951-2) 137 136-145 [facility] HospitalPotassium Mjxgu1012-88-30 06:37:00* Test Item Value Reference Range Interpretation Comments Potassium Level (test code = 2823-3) 4.1 3.5-5.1 [facility] HospitalChloride Qntxw3464-46-97 06:37:00* Test Item Value Reference Range Interpretation Comments Chloride Level (test code = 2075-0) 103 98-107 [facility] HospitalCarbon Dioxide Anpfx3601-15-11 06:37:00* Test Item Value Reference Range Interpretation Comments Carbon Dioxide Level (test code = 2028-9) 27 -29 [facility] HospitalAnion Abu6430-56-48 06:37:00* Test Item Value Reference Range Interpretation Comments Anion Gap (test code = 11306-6) 11.1 8-16 [facility] HospitalBlood Urea Ksmmsiys0747-11-73 06:37:00* Test Item Value Reference Range Interpretation Comments Blood Urea Nitrogen (test code = 3094-0) 18 7- [facility] HospitalCreatinine2019-09-26 06:37:00* Test Item Value Reference Range Interpretation Comments Creatinine (test code = 2160-0) 0.79 0.72-1.25 [facility] HospitalBUN/Creatinine Ivehz8836-75-39 06:37:00* Test Item Value Reference Range Interpretation Comments BUN/Creatinine Ratio (test code = 3097-3) 23 6- [facility] HospitalEstimat Glomerular Filtration Rate 2019-02-23 06:37:00* Test Item Value Reference Range Interpretation Comments Estimat Glomerular Filtration Rate (test code = 730703139) > 60 >60 Ranges were taken from the National Kidney Disease Education Program and the [facility] Kid[facility] literature.Reference ranges:60 or greater: Tfhzer32-63 ( for 3 consecutive months): Chronic kidney disease 15 or less: Kidney failureParkview Regional HospitalGlucose Ekmgk5757-70-86 06:37:00* Test Item Value Reference Range Interpretation Comments Glucose Level (test code = ONR7288) 131 74-118 H [facility] HospitalCalcium Bseac2789-52-60 06:37:00* Test Item Value Reference Range Interpretation Comments Calcium Level (test code = 51087-2) 9.6 8.4-10.2 [facility] HospitalPhosphorus Yfwjk2630-38-95 06:37:00* Test Item Value Reference Range Interpretation Comments Phosphorus Level (test code = DDD5014) 3.7 2.3-4.7 [facility] HospitalMagnesium Nkxub8936-45-17 06:37:00* Test Item Value Reference Range Interpretation Comments Magnesium Level (test code = 10022-5) 2.0 1.3-2.1 [facility] HospitalPhosphorus Sebpc0056-01-49 06:37:00* Test Item Value Reference Range Interpretation Comments Phosphorus Level (test code = ERR3326) 3.7 2.3-4.7 [facility] HospitalWhite Blood Iyytu6448-29-05 05:53:00* Test Item Value Reference Range Interpretation Comments White Blood Count (test code = 6690-2) 8.88 4.8-10.8 [facility] HospitalRed Blood Llxug4396-99-90 05:53:00* Test Item Value Reference Range Interpretation Comments Red Blood Count (test code = 789-8) 5.40 4.3-5.7 [facility] 05:53:00* Test Item Value Reference Range Interpretation Comments Hemoglobin (test code = 64021-8) 16.4 14.0-18.0 [facility] HospitalHematocrit2019-09-26 05:53:00* Test Item Value Reference Range Interpretation Comments Hematocrit (test code = 4544-3) 47.6 38.2-49.6 [facility] HospitalMean Corpuscular [id number] 05:53:00* Test Item Value Reference Range Interpretation Comments Mean Corpuscular Volume (test code = 787-2) 88.1 81-99 [facility]Mean Corpuscular Xxhhyxwmeh9730-67-81 05:53:00* Test Item Value Reference Range Interpretation Comments Mean Corpuscular Hemoglobin (test code = 785-6) 30.4 28-32 [facility] HospitalMean Corpuscular Hemoglobin Concent 2019-02-23 05:53:00* Test Item Value Reference Range Interpretation Comments Mean Corpuscular Hemoglobin Concent (test code = 786-4) 34.5 31-35 [facility] HospitalRed Cell Distribution Rhlfr9702-15-16 05:53:00* Test Item Value Reference Range Interpretation Comments Red Cell Distribution Width (test code = 03860-1) 13.8 11.7 -14.4 [facility] HospitalPlatelet Fwfkx1640-23-33 05:53:00* Test Item Value Reference Range Interpretation Comments Platelet Count (test code = 777-3) 208 140-360 [facility] HospitalNeutrophils (%) (Auto)2019-02-23 05:53:00 * Test Item Value Reference Range Interpretation Comments Neutrophils (%) (Auto) (test code = 73747-9) 84.1 38.7-80.0 H [facility] HospitalLymphocytes (%) (Auto)2019-02-23 05:53:00 * Test Item Value Reference Range Interpretation Comments Lymphocytes (%) (Auto) (test code = 736-9) 9.7 18.0-39.1 L [facility] HospitalMonocytes (%) (Auto)2019-02-23 05:53:00* Test Item Value Reference Range Interpretation Comments Monocytes (%) (Auto) (test code = 5905-5) 5.7 4.4-11.3 [facility] HospitalEosinophils (%) (Auto)2019-02-23 05:53:00 * Test Item Value Reference Range Interpretation Comments Eosinophils (%) (Auto) (test code = 713-8) 0.1 0.0-6.0 [facility] HospitalBasophils (%) (Auto)2019-02-23 05:53:00* Test Item Value Reference Range Interpretation Comments Basophils (%) (Auto) (test code = 706-2) 0.1 0.0-1.0 [facility] HospitalIM GRANULOCYTES %2019-02-23 05:53:00* Test Item Value Reference Range Interpretation Comments IM GRANULOCYTES % (test code = IM GRANULOCYTES %) 0.3 0.0- 1.0 [facility] HospitalNeutrophils # (Auto)2019-02-23 05:53:00* Test Item Value Reference Range Interpretation Comments Neutrophils # (Auto) (test code = 751-8) 7.5 2.1-6.9 H [facility] HospitalLymphocytes # (Auto)2019-02-23 05:53:00* Test Item Value Reference Range Interpretation Comments Lymphocytes # (Auto) (test code = 22588-0) 0.9 1.0-3.2 L [facility] HospitalMonocytes # (Auto)2019-02-23 05:53:00* Test Item Value Reference Range Interpretation Comments Monocytes # (Auto) (test code = 742-7) 0.5 0.2-0.8 [facility] HospitalEosinophils # (Auto)2019-02-23 05:53:00* Test Item Value Reference Range Interpretation Comments Eosinophils # (Auto) (test code = 711-2) 0.0 0.0-0.4 [facility] HospitalBasophils # (Auto)2019-02-23 05:53:00* Test Item Value Reference Range Interpretation Comments Basophils # (Auto) (test code = 704-7) 0.0 0.0-0.1 [facility] HospitalAbsolute Immature Granulocyte (auto 2019-02-23 05:53:00* Test Item Value Reference Range Interpretation Comments Absolute Immature Granulocyte (auto (carmen t code = Absolute Immature Granulocyte (auto) 0.03 0-0.1 [facility] HospitalCT MAXIO FAC/PARANAS [id number] 18:35:00 [place] [address] Patient Name: LAMBERTO FROST MR #: [id number] : 1985 Age/Sex: 33/M Req #: [id number] Adm Physician: RICHARD MULLINS MD Ordered by: TRENA ALVAREZ MD Report #: [id number] Location: MED/SURG Room/Bed: [facility] Procedure: [id number] [id number] CT/CT MAXIO FAC/PARANAS WO Exam Date: 02/22/19 Exam Time: 1430 REPORT STATUS: Sign ed History: Sinusitis Comparison studies: Head CT 08/07/2014 Technique: Axial images were obtained through the paranasal sinuses. Coronal and sagi ttal images reconstructed from the axial data. Dose modulation, iterative marizol nstruction, and/or weight based adjustment of the mA/kV was utilized to reduce the radiation dose to as low as reasonably achievable. IV contrast: None. Radiation dose: Total DLP: 316 mGy*cm. Estimated effective dose: DLP x 0. 015 Intravenous contrast: None Findings: Right anterior complex: Frontal sinus: Partially opacified with polypoid mucosal thickening. Frontonas al recess: Opacified. Anterior ethmoid air cells: Opacified. Ostiomeatal uni t: Opacified. Maxillary sinus: Partially opacified by peripheral mucosal thick ening and fluid/secretions. Left anterior complex: Frontal sinus: Clear . Frontonasal recess: Clear. Anterior ethmoid air cells: Clear. Ostiomeata l unit: Clear. Maxillary sinus: Minimal mucosal thickening inferiorly within t he sinus otherwise clear. Posterior complex: Right sphenoid sinus: Rebecca r. Right sphenoethmoidal recess: Clear. Left sphenoid sinus: Partially opaci fied with mild mucosal thickening. Left sphenoethmoidal recess: Opacified. P osterior ethmoid air cells: Opacified Other: Nasal vestibule and cavity: Right nasal cavity is clear. Left nasal cavity is mostly opacified with react alexandra turbinate hypertrophy, mucosal thickening and secretions. Nasal septum: Deviated to the left of midline with leftward projecting osseous spur which ab uts the left inferior turbinate and inferior left middle turbinate Agger Nasi: Clear on the right. Opacified on the left. Turbinates: No andrew bullosa. Placido cells: None Lamina papyracea: Intact. Cribriform plates: , 6 mm on t he right and 4 mm on the left below the level of the fovea ethmoidalis. Olfa ctory recesses: Narrowed and partially opacified posteriorly. Clear anteriorly . Optic canals: Not dehiscent Onodi cells: None Internal carotid arteries: from the sphenoid sinuses by thin bony plates. Sphenoid sinuses: Similar in size. Lateral recesses are partially pneumatized. Orbits: No abn ormalities. Bones: No abnormalities. Temporal bones: No gross abnormalities. Maxillary dentition: Multiple absent teeth. Tooth #9 root canal. No periapical lucencies. IMPRESSION: 1. Left maxillary sinus, left anterior and posterior ethmoid and left frontal sinus opacification with mild mucosal thic kening in the left sphenoid sinus and right maxillary sinus. Left maxillary si nus secretions indicative of acute on chronic sinusitis. 2. Obstructed left maxillary sinus and left sphenoethmoidal recess. Remaining sinus drainage pat hways are patent. 3. Left nasal cavity opacified by mucosal thickening, turbi brunilda hypertrophy and secretions. Left nasal obstruction exacerbated by leftwar d deviated nasal septum. Signed by: Dr. Ida Jenkins M.D. on 02/22/2019 6:51 PM Dictated By: IDA JENKINS MD 50 Transcribed By: BRIA on 02/22/191850 CO PY TO: TRENA ALVAREZ MD B-Type Natriuretic [id number] 06:17:00* Test Item Value Reference Range Interpretation Comments B-Type Natriuretic Peptide (test code = 08926-8) 10.9 0-100 [facility] HospitalB-Type Natriuretic Eepxges7972-55-94 06:17:00* Test Item Value Reference Range Interpretation Comments B-Type Natriuretic Peptide (test code = 55105-2) 10.9 0-100 [facility] HospitalUrine Yboxl1679-39-74 12:28:00* Test Item Value Reference Range Interpretation Comments Urine Color (test code = 5778-6) YELLOW YELLOW [facility] HospitalUrine Tkzipqr3417-81-26 12:28:00* Test Item Value Reference Range Interpretation Comments Urine Clarity (test code = 56272-8) SL CLOUDY CLEAR H [facility] HospitalUrine Specific Pkwdeob3655-50-17 12:28:00 * Test Item Value Reference Range Interpretation Comments Urine Specific [place] (test code = 5811-5) 1.005 1.010-1.02 5 L [facility] HospitalUrine [id number] 12:28:00* Test Item Value Reference Range Interpretation Comments Urine pH (test code = 29211-9) 8 5-7 [facility] Leukocyte Ibdjbphn5772-50-27 12:28:00* Test Item Value Reference Range Interpretation Comments Urine Leukocyte Esterase (test code = 5799-2) NEGATIVE NEGATIVE [facility] Nirvhns5509-00-80 12:28:00* Test Item Value Reference Range Interpretation Comments Urine Nitrite (test code = 07065-2) NEGATIVE NEGATIVE [facility] Yqrxxwx0212-06-17 12:28:00* Test Item Value Reference Range Interpretation Comments Urine Protein (test code = 5804-0) TRACE NEGATIVE H [facility] Glucose (UA)2019-02-19 12:28:00* Test Item Value Reference Range Interpretation Comments Urine Glucose (UA) (test code = 2349-9) NEGATIVE NEGATIVE [facility] Piivyrv2218-39-53 12:28:00* Test Item Value Reference Range Interpretation Comments Urine Ketones (test code = 53770-2) NEGATIVE NEGATIVE [facility] Zzkupdzfatnj4875-60-05 12:28:00* Test Item Value Reference Range Interpretation Comments Urine Urobilinogen (test code = 54419-8) 0.2 0.2-1 [facility] Dvfiohtjk0083-04-39 12:28:00* Test Item Value Reference Range Interpretation Comments Urine Bilirubin (test code = 1978-6) NEGATIVE NEGATIVE [facility] Pcgce5235-30-39 12:28:00* Test Item Value Reference Range Interpretation Comments Urine Blood (test code = 01571-9) NEGATIVE NEGATIVE [facility] [id number] 12:28:00* Test Item Value Reference Range Interpretation Comments Urine WBC (test code = 5821-4) 6-10 0-5 H [facility] HospitalU[facility] [id number] 12:28:00* Test Item Value Reference Range Interpretation Comments Urine RBC (test code = 68793-9) NONE 0-5 [facility] Jusfndav5692-20-34 12:28:00* Test Item Value Reference Range Interpretation Comments Urine Bacteria (test code = 13691-8) FEW NONE [facility] Epithelial Zfmel0472-90-89 12:28:00 * Test Item Value Reference Range Interpretation Comments Urine Epithelial Cells (test code = 16609-3) FEW NONE [facility] Ychgv6515-42-59 12:28:00* Test Item Value Reference Range Interpretation Comments Urine Mucus (test code = 8247-9) MODERATE RARE H [facility] Ejmof3556-83-42 12:28:00* Test Item Value Reference Range Interpretation Comments Urine Color (test code = 5778-6) YELLOW YELLOW [facility] Wjgdzat8691-87-15 12:28:00* Test Item Value Reference Range Interpretation Comments Urine Clarity (test code = 63409-7) SL CLOUDY CLEAR H [facility] HospitalU[facility] Specific Jcmcecv0217-37-84 12:28:00 * Test Item Value Reference Range Interpretation Comments Urine Specific [place] (test code = 5811-5) 1.005 1.010-1.02 5 L [facility] HospitalU[facility] [id number] 12:28:00* Test Item Value Reference Range Interpretation Comments Urine pH (test code = 99302-6) 8 5-7 [facility] Leukocyte Tdehizet8448-97-95 12:28:00* Test Item Value Reference Range Interpretation Comments Urine Leukocyte Esterase (test code = 5799-2) NEGATIVE NEGATIVE [facility] Revjvlp3352-89-38 12:28:00* Test Item Value Reference Range Interpretation Comments Urine Nitrite (test code = 93423-6) NEGATIVE NEGATIVE [facility] Fjclhki3500-63-31 12:28:00* Test Item Value Reference Range Interpretation Comments Urine Protein (test code = 5804-0) TRACE NEGATIVE H [facility] Glucose (UA)2019-02-19 12:28:00* Test Item Value Reference Range Interpretation Comments Urine Glucose (UA) (test code = 2349-9) NEGATIVE NEGATIVE [facility] Zfzxpbm4025-89-12 12:28:00* Test Item Value Reference Range Interpretation Comments Urine Ketones (test code = 31407-8) NEGATIVE NEGATIVE [facility] Lwinjggqqskf1839-18-40 12:28:00* Test Item Value Reference Range Interpretation Comments Urine Urobilinogen (test code = 25345-3) 0.2 0.2-1 [facility] Ngiqimufz6043-86-74 12:28:00* Test Item Value Reference Range Interpretation Comments Urine Bilirubin (test code = 1978-6) NEGATIVE NEGATIVE [facility] Emzrg7234-09-75 12:28:00* Test Item Value Reference Range Interpretation Comments Urine Blood (test code = 16385-5) NEGATIVE NEGATIVE [facility] [id number] 12:28:00* Test Item Value Reference Range Interpretation Comments Urine WBC (test code = 5821-4) 6-10 0-5 H [facility] [id number] 12:28:00* Test Item Value Reference Range Interpretation Comments Urine RBC (test code = 16478-9) NONE 0-5 [facility] Lfcsczmr8277-66-21 12:28:00* Test Item Value Reference Range Interpretation Comments Urine Bacteria (test code = 62154-4) FEW NONE [facility] Epithelial Rydec4239-75-59 12:28:00 * Test Item Value Reference Range Interpretation Comments Urine Epithelial Cells (test code = 48439-5) FEW NONE [facility] Tcpsn8963-97-46 12:28:00* Test Item Value Reference Range Interpretation Comments Urine Mucus (test code = 8247-9) MODERATE RARE H [facility] HospitalProthrombin [id number] 11:01:00* Test Item Value Reference Range Interpretation Comments Prothrombin Time (test code = 5902-2) 12.2 11.9-14.5 [facility] HospitalProthromb Time International Ratio 2019-02-19 11:01:00* Test Item Value Reference Range Interpretation Comments Prothromb Time International Ratio (test code = 6301-6) 0.86 Oral Anticoagulant Therapy INR Values:1. Low Intensity Therapy 1.5 - 2.02 . Moderate Intensity Therapy 2.0 - 3.03. High Intensity Therapy(1) 2.5 - 3. 54. High Intensity Therapy(2) 3.0 - 4.05. Panic Value INR > 5.0 [facility] HospitalActivated Partial Thromboplast Time 2019-02-19 11:01:00* Test Item Value Reference Range Interpretation Comments Activated Partial Thromboplast Time (test code = 17387-8) 32.3 23.8-35.5 [facility] HospitalProthrombin [id number] 11:01:00* Test Item Value Reference Range Interpretation Comments Prothrombin Time (test code = 5902-2) 12.2 11.9-14.5 [facility] HospitalProthromb Time International Ratio 2019-02-19 11:01:00* Test Item Value Reference Range Interpretation Comments Prothromb Time International Ratio (test code = 6301-6) 0.86 Oral Anticoagulant Therapy INR Values:1. Low Intensity Therapy 1.5 - 2.02 . Moderate Intensity Therapy 2.0 - 3.03. High Intensity Therapy(1) 2.5 - 3. 54. High Intensity Therapy(2) 3.0 - 4.05. Panic Value INR > 5.0 [facility] HospitalActivated Partial Thromboplast Time 2019-02-19 11:01:00* Test Item Value Reference Range Interpretation Comments Activated Partial Thromboplast Time (test code = 19655-0) 32.3 23.8-35.5 [facility] HospitalCreatine Kinase [id number] 09:30:00* Test Item Value Reference Range Interpretation Comments Creatine Kinase MB (test code = 29610-0) 2.20 0-5.0 [facility] HospitalTroponin [id number] 09:30:00* Test Item Value Reference Range Interpretation Comments Troponin I (test code = WAS8638) < 0.001 0-0.300 [facility] HospitalCreatine Kinase [id number] 09:30:00* Test Item Value Reference Range Interpretation Comments Creatine Kinase MB (test code = 10348-2) 2.20 0-5.0 [facility] HospitalTroponin [id number] 09:30:00* Test Item Value Reference Range Interpretation Comments Troponin I (test code = IFQ9743) < 0.001 0-0.300 [facility] HospitalCHEST SINGLE (PORTABLE)2019-02-19 09:28:00 [place] [address] Patient Name: LAMBERTO FROST MR #: [id number] : 1985 Age/Sex: 33/M Req #: [id number] Adm Physician: Ordered by: REGULO BENTLEY MD Report #: [id number] Location: ER Room/Bed: Procedure: 0922 -0019 DX/CHEST SINGLE (PORTABLE) Exam Date: 02/19/19 Exam Time: 914 REPORT STATUS: Sig jesse Examination: Single AP view of the chest. COMPARISON: None. IND ICATION: Shortness of breath DISCUSSION: Lines/tubes: None. Lungs: The lungs are well inflated and clear. No pneumonia or pulmonary edema. Pleura: No pleural effusion or pneumothorax. Heart and mediastinum: The heart and the mediastinum are unremarkable. Bones and soft tissues: No acute bony abnormalities. IMPRESSION: 1. No acute cardiopulm onary abnormalities. Signed by: Dr. Lashell Ramirez M.D. on 02/19/2019 9:29 AM Dictated By: LASHELL RAMIREZ MD 8 Transcribed By: BRIA on 02/19/19928 COPY TO: REGULO BENTLEY MD Total [id number] 09:21:00* Test Item Value Reference Range Interpretation Comments Total Bilirubin (test code = 1975-2) 1.2 0.2-1.2 [facility] HospitalAspartate Amino Transf (AST/SGOT) 2019-02-19 09:21:00* Test Item Value Reference Range Interpretation Comments Aspartate Amino Transf (AST/SGOT) (test code = Aspartate Amino Transf (AST/SGOT)) 18 5-34 [facility] HospitalAlanine Aminotransferase (ALT/SGPT) 2019-02-19 09:21:00* Test Item Value Reference Range Interpretation Comments Alanine Aminotransferase (ALT/SGPT) (test code = 1742-6) 28 0-55 [facility] HospitalTotal Dwjrdih8398-92-76 09:21:00* Test Item Value Reference Range Interpretation Comments Total Protein (test code = 2885-2) 7.3 6.5-8.1 [facility] HospitalAlbumin2019-09-22 09:21:00* Test Item Value Reference Range Interpretation Comments Albumin (test code = 1751-7) 4.4 3.5-5.0 [facility] HospitalGlobulin2019-09-22 09:21:00* Test Item Value Reference Range Interpretation Comments Globulin (test code = 08431-1) 2.9 2.3-3.5 [facility] HospitalAlbumin/Globulin Wqark4112-16-30 09:21:00 * Test Item Value Reference Range Interpretation Comments Albumin/Globulin Ratio (test code = 1759-0) 1.5 0.8-2.0 [facility] HospitalAlkaline Pqkdynaaovz5483-27-18 09:21:00* Test Item Value Reference Range Interpretation Comments Alkaline Phosphatase (test code = 6768-6) 80 40-150 [facility] HospitalCreatine Cgxocr8837-15-81 09:21:00* Test Item Value Reference Range Interpretation Comments Creatine Kinase (test code = 2157-6) 126 30-200 [facility] HospitalCreatine Ukiytc6024-81-20 09:21:00* Test Item Value Reference Range Interpretation Comments Creatine Kinase (test code = 2157-6) 126 30-200 [facility] HospitalCBC W/AUTO [id number] 08:16:00* Test Item Value Reference Range Interpretation Comments WHITE BLOOD CELL (test code = WBC) 14.31 x10 3/uL 4.5-11.0 H RED BLOOD CELL (test code = RBC) 5.32 x10 6/uL 4.00-5.60 N HEMOGLOBIN (test code = HGB) 16.1 g/dL 12.5-16.9 N HEMATOCRIT (test code = HCT) 49.2 % 37.5-50.7 N MEAN CELL VOLUME (test code = MCV) 92.5 fL 81.0-99.0 N MEAN CELL HGB (test code = MCH) 30.3 pg 27.0-33.0 N MEAN CELL HGB CONCETRATION (test code = MCHC) 32.7 g/dL 33.0-37. 0 L RED CELL DISTRIBUTION WIDTH CV (test code = RDW) 13.6 % 11.5- 14.5 N RED CELL DISTRIBUTION WIDTH SD (test code = RDW-SD) 45.9 fL 37 .0-54.0 N PLATELET COUNT (test code = PLT) 212 x10 3/uL 150-400 N MEAN PLATELET VOLUME (test code = MPV) 10.5 fL 7.0-9.0 H NEUTROPHIL % (test code = NT%) 89.6 % 56.0-77.0 H IMMATURE GRANULOCYTE % (test code = IG%) 0.6 % 0.0-2.0 N LYMPHOCYTE % (test code = LY%) 4.8 % 14.0-32.0 L MONOCYTE % (test code = MO%) 4.9 % 4.8-9.0 N EOSINOPHIL % (test code = EO%) 0.0 % 0.3-3.7 L BASOPHIL % (test code = BA%) 0.1 % 0.0-2.0 N NUCLEATED RBC % (test code = NRBC%) 0.0 % 0-0 N NEUTROPHIL # (test code = NT#) 12.82 x10 3/uL 2.0-7.6 H IMMATURE GRANULOCYTE # (test code = IG#) 0.09 x10 3/uL 0.00-0.03 H LYMPHOCYTE # (test code = LY#) 0.68 x10 3/uL 1.0-3.8 L MONOCYTE # (test code = MO#) 0.70 x10 3/uL 0.1-0.8 N EOSINOPHIL # (test code = EO#) 0.00 x10 3/uL 0.0-0.2 N BASOPHIL # (test code = BA#) 0.02 x10 3/uL 0.0-0.2 N NUCLEATED RBC # (test code = NRBC#) 0.00 x10 3/uL 0.0-0.1 N MANUAL DIFF REQUIRED (test code = MDIFF) NO BASIC METABOLIC [id number] 08:00:00* Test Item Value Reference Range Interpretation Comments SODIUM (test code = NA) 139 mEq/L 134-147 N POTASSIUM (test code = K) 4.0 mEq/L 3.4-5.0 N CHLORIDE (test code = CL) 108 mEq/L 100-108 N CARBON DIOXIDE (test code = CO2) 26 mEq/L 21-33 N ANION GAP (test code = GAP) 9 0-20 N GLUCOSE (test code = GLU) 117 mg/dL 70-110 H BLOOD UREA NITROGEN (test code = BUN) 18 mg/dL 7-18 N GLOMERULAR FILTRATION RATE (test code = GFR) 131.5 105-110 H Units of measure = ml/min/1.73 m2 CREATININE (test code = CREAT) 0.7 mg/dL 0.6-1.3 N CALCIUM (test code = CA) 9.2 mg/dL 8.0-10.5 N BASIC METABOLIC [id number] 04:40:00* Test Item Value Reference Range Interpretation Comments SODIUM (test code = NA) 139 mEq/L 134-147 N POTASSIUM (test code = K) 4.3 mEq/L 3.4-5.0 N CHLORIDE (test code = CL) 109 mEq/L 100-108 H CARBON DIOXIDE (test code = CO2) 24 mEq/L 21-33 N ANION GAP (test code = GAP) 10 0-20 N GLUCOSE (test code = GLU) 142 mg/dL 70-110 H BLOOD UREA NITROGEN (test code = BUN) 16 mg/dL 7-18 GLOMERULAR FILTRATION RATE (test code = GFR) 112.8 105-110 H Units of measure = ml/min/1.73 m2 CREATININE (test code = CREAT) 0.8 mg/dL 0.6-1.3 N CALCIUM (test code = CA) 9.2 mg/dL 8.0-10.5 N CBC W/AUTO [id number] 04:29:00* Test Item Value Reference Range Interpretation Comments WHITE BLOOD CELL (test code = WBC) 12.77 x10 3/uL 4.5-11.0 H RED BLOOD CELL (test code = RBC) 5.27 x10 6/uL 4.00-5.60 N HEMOGLOBIN (test code = HGB) 15.8 g/dL 12.5-16.9 N HEMATOCRIT (test code = HCT) 47.5 % 37.5-50.7 N MEAN CELL VOLUME (test code = MCV) 90.1 fL 81.0-99.0 N MEAN CELL HGB (test code = MCH) 30.0 pg 27.0-33.0 N MEAN CELL HGB CONCETRATION (test code = MCHC) 33.3 g/dL 33.0-37. 0 N RED CELL DISTRIBUTION WIDTH CV (test code = RDW) 13.6 % 11.5- 14.5 N RED CELL DISTRIBUTION WIDTH SD (test code = RDW-SD) 45.0 fL 37 .0-54.0 N PLATELET COUNT (test code = PLT) 213 x10 3/uL 150-400 N MEAN PLATELET VOLUME (test code = MPV) 10.1 fL 7.0-9.0 H NEUTROPHIL % (test code = NT%) 91.7 % 56.0-77.0 H IMMATURE GRANULOCYTE % (test code = IG%) 0.5 % 0.0-2.0 N LYMPHOCYTE % (test code = LY%) 5.0 % 14.0-32.0 L MONOCYTE % (test code = MO%) 2.7 % 4.8-9.0 L EOSINOPHIL % (test code = EO%) 0.0 % 0.3-3.7 L BASOPHIL % (test code = BA%) 0.1 % 0.0-2.0 N NUCLEATED RBC % (test code = NRBC%) 0.0 % 0-0 N NEUTROPHIL # (test code = NT#) 11.71 x10 3/uL 2.0-7.6 H IMMATURE GRANULOCYTE # (test code = IG#) 0.07 x10 3/uL 0.00-0.03 H LYMPHOCYTE # (test code = LY#) 0.64 x10 3/uL 1.0-3.8 L MONOCYTE # (test code = MO#) 0.34 x10 3/uL 0.1-0.8 N EOSINOPHIL # (test code = EO#) 0.00 x10 3/uL 0.0-0.2 N BASOPHIL # (test code = BA#) 0.01 x10 3/uL 0.0-0.2 N NUCLEATED RBC # (test code = NRBC#) 0.00 x10 3/uL 0.0-0.1 N MANUAL DIFF REQUIRED (test code = MDIFF) NO - XR CHEST 1 [id number] 16:06:00 FAX: Rina Guerra [phone] [place]: St: [facility] FAX: Marc Peña I [phone] Name: LAMBERTO FROST [facility] : 1985 Age/S: 33/M [address] [place] [address] Unit #: [id number] Loc: G.[address] [address] Phys: Rina Spivey MD Acct: [id number] Dis Date: Status: ADM IN PHONE #: [phone] Exam Date: 01/29/2019 1533 FAX #: [phone] Reason: asthma EXAMS: CPT CODE: [id number] XR CHEST 1 V 58895 Patient: LAMBERTO FROST. : 1985; Age: 33 years; Gender: Male. MR: [id number]. Ordering physician: Rina Gale MD. PORTABLE CHEST AP: HISTORY: Asthma exacerbation. COMPARISON: Chest x-ray 09/16/2018. FINDINGS: Portable frontal view of the chest was obtained. The lungs are clear bilaterally. The cardiomediastinal silhouette and pulmonary vasculature are unremarkable. The partially visualized upper abdomen is unremarkable. IMPRESSION: No acute disease in the chest. SL: RUPAL at 1606 Reported and signed by: Silver Solis M.D. CC: Rina Gale MD; Marc Sahni MD Technologist: Kendra Roblero RT(R) Trnscrd Date/Time/By: 01/29/2019 (5373) : By: [email or web address] Orig Print D/T: S: 01/29/2019 (9352) PAGE 1 Signed Report BASIC METABOLIC [id number] 05:31:00* Test Item Value Reference Range Interpretation Comments SODIUM (test code = NA) 141 mEq/L 134-147 N POTASSIUM (test code = K) 4.0 mEq/L 3.4-5.0 N CHLORIDE (test code = CL) 109 mEq/L 100-108 H CARBON DIOXIDE (test code = CO2) 24 mEq/L 21-33 N ANION GAP (test code = GAP) 12 0-20 N GLUCOSE (test code = GLU) 140 mg/dL 70-110 H BLOOD UREA NITROGEN (test code = BUN) 10 mg/dL 7-18 N GLOMERULAR FILTRATION RATE (test code = GFR) 131.5 105-110 H Units of measure = ml/min/1.73 m2 CREATININE (test code = CREAT) 0.7 mg/dL 0.6-1.3 N CALCIUM (test code = CA) 9.2 mg/dL 8.0-10.5 N [id number] 05:31:00* Test Item Value Reference Range Interpretation Comments MAGNESIUM (test code = MAG) 2.30 mg/dL 1.8-2.4 N CBC W/AUTO [id number] 05:04:00* Test Item Value Reference Range Interpretation Comments WHITE BLOOD CELL (test code = WBC) 11.84 x10 3/uL 4.5-11.0 H RED BLOOD CELL (test code = RBC) 5.07 x10 6/uL 4.00-5.60 N HEMOGLOBIN (test code = HGB) 15.5 g/dL 12.5-16.9 N HEMATOCRIT (test code = HCT) 45.3 % 37.5-50.7 N MEAN CELL VOLUME (test code = MCV) 89.3 fL 81.0-99.0 N MEAN CELL HGB (test code = MCH) 30.6 pg 27.0-33.0 N MEAN CELL HGB CONCETRATION (test code = MCHC) 34.2 g/dL 33.0-37. 0 N RED CELL DISTRIBUTION WIDTH CV (test code = RDW) 13.5 % 11.5- 14.5 N RED CELL DISTRIBUTION WIDTH SD (test code = RDW-SD) 43.7 fL 37 .0-54.0 N PLATELET COUNT (test code = PLT) 196 x10 3/uL 150-400 N MEAN PLATELET VOLUME (test code = MPV) 10.3 fL 7.0-9.0 H NEUTROPHIL % (test code = NT%) 91.4 % 56.0-77.0 H IMMATURE GRANULOCYTE % (test code = IG%) 0.2 % 0.0-2.0 N LYMPHOCYTE % (test code = LY%) 5.9 % 14.0-32.0 L MONOCYTE % (test code = MO%) 2.4 % 4.8-9.0 L EOSINOPHIL % (test code = EO%) 0.0 % 0.3-3.7 L BASOPHIL % (test code = BA%) 0.1 % 0.0-2.0 N NUCLEATED RBC % (test code = NRBC%) 0.0 % 0-0 N NEUTROPHIL # (test code = NT#) 10.83 x10 3/uL 2.0-7.6 H IMMATURE GRANULOCYTE # (test code = IG#) 0.02 x10 3/uL 0.00-0.03 N LYMPHOCYTE # (test code = LY#) 0.70 x10 3/uL 1.0-3.8 L MONOCYTE # (test code = MO#) 0.28 x10 3/uL 0.1-0.8 N EOSINOPHIL # (test code = EO#) 0.00 x10 3/uL 0.0-0.2 N BASOPHIL # (test code = BA#) 0.01 x10 3/uL 0.0-0.2 N NUCLEATED RBC # (test code = NRBC#) 0.00 x10 3/uL 0.0-0.1 N MANUAL DIFF REQUIRED (test code = MDIFF) NO AG STREP GROUP A (THROAT)2019-01-28 21:38:00* Test Item Value Reference Range Interpretation Comments AG STREP GROUP A (THROAT) (test code = STREPA) Negative Negativ e Negative for Strep A nucleic acid CXR 1 [facility] - [id number] 09:35:00 [place] [address] Patient Name: LAMBERTO FROST MR #: [id number] : 1985 Age/Sex: 33/M Req #: [id number] Adm Physician: Ordered by: YUN LE MD Report #: [id number] Location: [facility] Room/Bed: Procedure: [id number] [facility]XR 1 [facility] Exam Date: 01/28/19 Exam Time: 0935 REPORT STATUS: Sign ed A single frontal view of the chest. HISTORY: Asthma COMPARISON: C hest radiographs October 23, 2018 and May 21, 2018 DISCUSSION: Port able technique, limits sensitivity of the exam. Overlying tubing. Tubes/Sahra es: None Lungs and pleura: Persistent prominence of the peribronchial interstitial markings. No evidence of a consolidative pneumonia or pulmonary alveolar edema. No definite pleural effusion or pneumothorax is identified. Heart and mediastinum: The cardiomediastinal silhouette appear(s) unrema rkable. Bones and soft tissues: Appear unremarkable, given this limited exam. IMPRESSION: Findings remain compatible with a nonspecific bron chitis, which can be seen in the provided setting of asthma. Signed by: Dr. Slade Etienne D.O., M.M.M. on 01/28/2019 9:37 AM Dictated By : SLADE ETIENNE DO 6 Tra nscribed By: BRIA on 01/28/19936 COPY TO: YUN LE MD CHEST SINGLE (PORTABLE)2018-10-23 18:02:00 [place] [address] Patient Name: LAMBERTO FROST MR #: [id number] : 1985 Age/Sex: 32/M Req #: [id number] Adm Physician: Ordered by: MYRON HURLEY [employer] Report #: [id number] Location: ER Room/Bed: Procedure: [id number] DX/CHEST SINGLE (PORTABLE) Exam Date: 10/23/18 E xam Time: 1750 REPORT STATUS: Randi d EXAMINATION: CHEST SINGLE (PORTABLE) INDICATION: Shortness o f breath. Asthma. COMPARISON: Chest x-ray 05/21/2018. FINDINGS: AP view TUBES and LINES: None. LUNGS: Lungs are well inflated. Bilateral peribronchial cuffing. There is no evidence of pneumonia or pulmonar y edema. PLEURA: No pleural effusion or pneumothorax. HEART AND MEDIA STINUM: The cardiomediastinal silhouette is unremarkable. BONES AND SO FT TISSUES: No acute osseous lesion. Soft tissues are unremarkable. UPP ER ABDOMEN: No free air under the diaphragm. IMPRESSION: Bilateral p eribronchial cuffing, which could represent viral etiology or reactive airway disease. Signed by: Dr. Swapnil San M.D. on 10/23/2018 6:04 PM Dictat ed By: SWAPNIL SAN MD 03 Transc ribed By: BRIA on 10/23/181803 COPY TO: MYRON HURLEY NP [id number] 11:37:00* Test Item Value Reference Range Interpretation Comments GLYCOSYLATED HEMOGLOBIN (HA1C) (test code = GLYHGB) 5.1 % HbA1 4. 8-6.0 N ESTIMATED AVERAGE GLUCOSE (test code = EAG) 100 MG/DL CBC W/AUTO [id number] 11:26:00* Test Item Value Reference Range Interpretation Comments WHITE BLOOD CELL (test code = WBC) 13.2 K/mm3 4.5-12.5 H RED BLOOD CELL (test code = RBC) 5.88 mill/mm3 4.0-5.8 H HEMOGLOBIN (test code = HGB) 17.0 gram/dL 13.0-17.5 N HEMATOCRIT (test code = HCT) 53.2 % 42.0-52.0 H MEAN CELL VOLUME (test code = MCV) 90.5 fL 80-98 N MEAN CELL HGB (test code = MCH) 28.9 picogram 27.0-33.0 N MEAN CELL HGB CONCETRATION (test code = MCHC) 32.0 gram/dL 33.0-36. 0 L RED CELL DISTRIBUTION WIDTH (test code = RDW) 13.7 % 11.6-16. 2 N RED CELL DISTRIBUTION WIDTH SD (test code = RDW-SD) 45.7 fL 37 .0-51.0 N PLATELET COUNT (test code = PLT) 222 K/mm3 150-450 N MEAN PLATELET VOLUME (test code = MPV) 10.4 fL 6.7-11.0 N NEUTROPHIL % (test code = NT%) 88.6 % 39.0-69.0 H IMMATURE GRANULOCYTE % (test code = IG%) 0.5 % 0.0-5.0 N LYMPHOCYTE % (test code = LY%) 6.9 % 25.0-55.0 L MONOCYTE % (test code = MO%) 3.9 % 0.0-10.0 N EOSINOPHIL % (test code = EO%) 0.0 % 0.0-5.0 N BASOPHIL % (test code = BA%) 0.1 % 0.0-1.0 N NUCLEATED RBC % (test code = NRBC%) 0.0 % 0-0 N NEUTROPHIL # (test code = NT#) 11.67 K/mm3 1.8-7.7 H IMMATURE GRANULOCYTE # (test code = IG#) 0.06 x10 3/uL 0-0.03 H LYMPHOCYTE # (test code = LY#) 0.91 K/mm3 1.0-5.0 L MONOCYTE # (test code = MO#) 0.51 K/mm3 0-0.8 N EOSINOPHIL # (test code = EO#) 0.00 K/mm3 0.0-0.5 N BASOPHIL # (test code = BA#) 0.01 K/mm3 0.0-0.2 N NUCLEATED RBC # (test code = NRBC#) 0.00 K/mm3 0.0-0.1 N MANUAL DIFF REQUIRED (test code = MDIFF) NO CBC W/AUTO [id number] 11:25:00* Test Item Value Reference Range Interpretation Comments WHITE BLOOD CELL (test code = WBC) K/mm3 4.5-12.5 RED BLOOD CELL (test code = RBC) mill/mm3 4.0-5.8 HEMOGLOBIN (test code = HGB) 17.0 gram/dL 13.0-17.5 N HEMATOCRIT (test code = HCT) % 42.0-52.0 MEAN CELL VOLUME (test code = MCV) fL 80-98 MEAN CELL HGB (test code = MCH) picogram 27.0-33.0 MEAN CELL HGB CONCETRATION (test code = MCHC) gram/dL 33.0-36. 0 RED CELL DISTRIBUTION WIDTH (test code = RDW) % 11.6-16. 2 RED CELL DISTRIBUTION WIDTH SD (test code = RDW-SD) fL 37 .0-51.0 PLATELET COUNT (test code = PLT) K/mm3 150-450 MEAN PLATELET VOLUME (test code = MPV) fL 6.7-11.0 NEUTROPHIL % (test code = NT%) % 39.0-69.0 IMMATURE GRANULOCYTE % (test code = IG%) % 0.0-5.0 LYMPHOCYTE % (test code = LY%) % 25.0-55.0 MONOCYTE % (test code = MO%) % 0.0-10.0 EOSINOPHIL % (test code = EO%) % 0.0-5.0 BASOPHIL % (test code = BA%) % 0.0-1.0 NEUTROPHIL # (test code = NT#) K/mm3 1.8-7.7 LYMPHOCYTE # (test code = LY#) K/mm3 1.0-5.0 MONOCYTE # (test code = MO#) K/mm3 0-0.8 EOSINOPHIL # (test code = EO#) K/mm3 0.0-0.5 BASOPHIL # (test code = BA#) K/mm3 0.0-0.2 BASIC METABOLIC [id number] 07:05:00* Test Item Value Reference Range Interpretation Comments SODIUM (test code = NA) 143 mmol/L 136-145 N POTASSIUM (test code = K) 4.1 mmol/L 3.5-5.1 N CHLORIDE (test code = CL) 113.0 mmol/L 98-107 H CARBON DIOXIDE (test code = CO2) 22.0 mmol/L 21-32 N ANION GAP (test code = GAP) 12.1 10-20 N GLUCOSE (test code = GLU) 122 mg/dL 74-106 H BLOOD UREA NITROGEN (test code = BUN) 13 mg/dL 7-18 N GLOMERULAR FILTRATION RATE (test code = GFR) > 60 mL/min >=60 Estimated GFR by using Modified MDRD formula.Chronic kidney disease is defined as either kidney damageor GFR <60 mL/min/1.73 m2 for >3 months. CREATININE (test code = CREAT) 0.80 mg/dL 0.7-1.3 N BUN/CREATININE RATIO (test code = BUN/CREA) 16.3 10-20 N CALCIUM (test code = CA) 9.3 mg/dL 8.5-10.1 N [id number] 07:05:00* Test Item Value Reference Range Interpretation Comments PHOSPHORUS (test code = PHOS) 3.9 mg/dL 2.5-4.9 N [id number] 07:05:00* Test Item Value Reference Range Interpretation Comments MAGNESIUM (test code = MAG) 2.4 mg/dL 1.8-2.4 N CALCIUM [id number] 07:05:00* Test Item Value Reference Range Interpretation Comments CALCIUM IONIZED (test code = CELENA) 1.38 mmol/L 1.12-1.32 H BASIC METABOLIC [id number] 06:45:00* Test Item Value Reference Range Interpretation Comments SODIUM (test code = NA) mmol/L 136-145 POTASSIUM (test code = K) mmol/L 3.5-5.1 CHLORIDE (test code = CL) mmol/L 98-107 CARBON DIOXIDE (test code = CO2) mmol/L 21-32 ANION GAP (test code = GAP) 10-20 GLUCOSE (test code = GLU) mg/dL 74-106 BLOOD UREA NITROGEN (test code = BUN) mg/dL 7-18 GLOMERULAR FILTRATION RATE (test code = GFR) mL/min >=60 CREATININE (test code = CREAT) mg/dL 0.7-1.3 BUN/CREATININE RATIO (test code = BUN/CREA) 10-20 CALCIUM (test code = CA) mg/dL 8.5-10.1 [id number] 06:45:00* Test Item Value Reference Range Interpretation Comments PHOSPHORUS (test code = PHOS) mg/dL 2.5-4.9 [id number] 06:45:00* Test Item Value Reference Range Interpretation Comments MAGNESIUM (test code = MAG) mg/dL 1.8-2.4 CALCIUM [id number] 06:45:00* Test Item Value Reference Range Interpretation Comments CALCIUM IONIZED (test code = CELENA) 1.38 mmol/L 1.12-1.32 H CBC W/AUTO [id number] 06:32:00* Test Item Value Reference Range Interpretation Comments WHITE BLOOD CELL (test code = WBC) 9.9 K/mm3 4.5-12.5 N RED BLOOD CELL (test code = RBC) 5.42 mill/mm3 4.0-5.8 N HEMOGLOBIN (test code = HGB) 15.6 gram/dL 13.0-17.5 N HEMATOCRIT (test code = HCT) 48.2 % 42.0-52.0 N MEAN CELL VOLUME (test code = MCV) 88.9 fL 80-98 N MEAN CELL HGB (test code = MCH) 28.8 picogram 27.0-33.0 N MEAN CELL HGB CONCETRATION (test code = MCHC) 32.4 gram/dL 33.0-36. 0 L RED CELL DISTRIBUTION WIDTH (test code = RDW) 13.5 % 11.6-16. 2 N RED CELL DISTRIBUTION WIDTH SD (test code = RDW-SD) 43.6 fL 37 .0-51.0 N PLATELET COUNT (test code = PLT) 214 K/mm3 150-450 N MEAN PLATELET VOLUME (test code = MPV) 10.3 fL 6.7-11.0 N NEUTROPHIL % (test code = NT%) 86.2 % 39.0-69.0 H IMMATURE GRANULOCYTE % (test code = IG%) 0.4 % 0.0-5.0 N LYMPHOCYTE % (test code = LY%) 8.4 % 25.0-55.0 L MONOCYTE % (test code = MO%) 4.9 % 0.0-10.0 N EOSINOPHIL % (test code = EO%) 0.0 % 0.0-5.0 N BASOPHIL % (test code = BA%) 0.1 % 0.0-1.0 N NUCLEATED RBC % (test code = NRBC%) 0.0 % 0-0 N NEUTROPHIL # (test code = NT#) 8.53 K/mm3 1.8-7.7 H IMMATURE GRANULOCYTE # (test code = IG#) 0.04 x10 3/uL 0-0.03 H LYMPHOCYTE # (test code = LY#) 0.83 K/mm3 1.0-5.0 L MONOCYTE # (test code = MO#) 0.48 K/mm3 0-0.8 N EOSINOPHIL # (test code = EO#) 0.00 K/mm3 0.0-0.5 N BASOPHIL # (test code = BA#) 0.01 K/mm3 0.0-0.2 N NUCLEATED RBC # (test code = NRBC#) 0.00 K/mm3 0.0-0.1 N MANUAL DIFF REQUIRED (test code = MDIFF) NO CBC W/AUTO [id number] 06:28:00* Test Item Value Reference Range Interpretation Comments WHITE BLOOD CELL (test code = WBC) K/mm3 4.5-12.5 RED BLOOD CELL (test code = RBC) mill/mm3 4.0-5.8 HEMOGLOBIN (test code = HGB) 15.6 gram/dL 13.0-17.5 N HEMATOCRIT (test code = HCT) 48.2 % 42.0-52.0 N MEAN CELL VOLUME (test code = MCV) fL 80-98 MEAN CELL HGB (test code = MCH) picogram 27.0-33.0 MEAN CELL HGB CONCETRATION (test code = MCHC) gram/dL 33.0-36. 0 RED CELL DISTRIBUTION WIDTH (test code = RDW) % 11.6-16. 2 RED CELL DISTRIBUTION WIDTH SD (test code = RDW-SD) fL 37 .0-51.0 PLATELET COUNT (test code = PLT) K/mm3 150-450 MEAN PLATELET VOLUME (test code = MPV) fL 6.7-11.0 NEUTROPHIL % (test code = NT%) % 39.0-69.0 IMMATURE GRANULOCYTE % (test code = IG%) % 0.0-5.0 LYMPHOCYTE % (test code = LY%) % 25.0-55.0 MONOCYTE % (test code = MO%) % 0.0-10.0 EOSINOPHIL % (test code = EO%) % 0.0-5.0 BASOPHIL % (test code = BA%) % 0.0-1.0 NEUTROPHIL # (test code = NT#) K/mm3 1.8-7.7 LYMPHOCYTE # (test code = LY#) K/mm3 1.0-5.0 MONOCYTE # (test code = MO#) K/mm3 0-0.8 EOSINOPHIL # (test code = EO#) K/mm3 0.0-0.5 BASOPHIL # (test code = BA#) K/mm3 0.0-0.2 ARTERIAL BLOOD [id number] 23:59:00* Test Item Value Reference Range Interpretation Comments ARTERIAL BLOOD GAS PH (test code = PHA) 7.66 7.35-7.45 H H Results called to and read back by Shaquille Salinas 23: - 09/16/2018; by [facility] ARTERIAL BLOOD GAS PCO2 (test code = PCO2A) 13.7 mm Hg 35-45 LL Results called to and read back by Shaquille Salinas 23:42 - 09/16/2018; by [facility] ARTERIAL BLOOD GAS PO2 (test code = PO2A) 175.4 mmHg 80-100 H BICARBONATE TOTAL HCO3 (test code = HCO3) 15.1 mmol/L 23.0-27.0 L BASE EXCESS (test code = ALEJNADRA) -0.8 mmol/L -3.0-5.0 N ABG O2 SATURATION (test code = SATA) 99.2 % 90.0-98.0 H ABG TYPE (test code = TYPEA) Arterial FIO2 (test code = FIO2A) 50.0 ABG TEMPERATURE (test code = TEMPA) 37.0 Celsius ABG SITE (test code = SITEA) Lt RADIAL ARTERY MODIFIED ALLENS (test code = MODALL) Yes CHECK PERFORMED SODIUM (test code = NA/ABG) 140.9 mEq/L 135-148 N POTASSIUM (test code = K/ABG) 3.9 mEq/L 3.5-4.5 N CHLORIDE (test code = CL/ABG) 109 mEq/L 98-106 H GLUCOSE (test code = GLU/ABG) 145 mg/dL 74-99 H HEMATOCRIT (test code = HCT/ABG) 52 % 42-52 N IONIZED CALCIUM (test code = CAIABG) 1.24 mmol/L 1.1-1.37 N TOTAL HGB (test code = THB) 17.6 gram/dL 13.0-17.5 H HGB O2 SAT (test code = HBOSAT) 98.1 % 94.00-98.00 H CARBOXYHEMOGLOBIN (test code = HOHGBT) 0.3 %totalHg 0.5-1.5 LL Results called to and read back by Shaquille Salinas 23:42 - 09/16/2018; by Alma SMILEY [employer] METHEMOGLOBIN (test code = METHGB) 0.8 % 0.0-1.50 N O2 CONTENT (test code = O2CT) 24.5 % vol 18.0-22.0 H A-A GRADIENT (test code = AAGRADE) 165.7 mm Hg - XR CHEST 1 [id number] 23:51:00 FAX: Vanessa Sanders MD [phone] [place]: [address] St: [facility] FAX: Radha Calhoun MD [phone] Name: LAMBERTO FROST [facility] : 1985 Age/S: 32/M [address] [facility] Unit #: [id number] Loc: V.[address] [place] [address] Phys: Vanessa Loera MD Acct: [id number] Dis Date: Status: ADM IN PHONE #: [phone] Exam Date: 09/16/2018 2348 FAX #: [phone] Reason: SOB EXAMS: CPT CODE: [id number] XR CHEST 1 V 02496 HISTORY: Male, 32 years of age with SOB Location code: R16 EXAM: CHEST X-RAY, ONE VIEW at 2342 hours COMPARISON: Same day at 1122 hours COMMENT: Frontal view of the chest is provided. No focal infiltrate, consolidation, mass lesion, or effusion is seen. Cardiac silhouette is within normal limits. No acute bony abnormalities. IMPRESSION: No acute infiltrate and no change since prior study. at 8487 Reported and signed by: Alysha Friedman MD CC: Vanessa Loera MD; Radha Caraballo MD Technologist: Suki Smalls Trnscrd Date/Time/By: 09/16/2018 (7590) : By: KimCLW Orig Print D/T: S: 09/16/2018 (8819) PAGE 1 Signed Report URINALYSIS [id number] 14:26:00* Test Item Value Reference Range Interpretation Comments UA COLOR (test code = COLU) DARK YELLOW YELLOW A UA APPEARANCE (test code = APPU) CLEAR CLEAR UA GLUCOSE DIPSTICK (test code = DGLUU) NEGATIVE mg/dL NEGATIVE UA BILIRUBIN DIPSTICK (test code = BILU) NEGATIVE mg/dL NEGATIVE UA KETONE DIPSTICK (test code = KETU) 80 (3+) mg/dL NEGATIVE A UA SPECIFIC GRAVITY (test code = SGU) 1.026 1.001-1.035 UA BLOOD DIPSTICK (test code = ELIJAH) Negative mg/dL NEGATIVE UA PH DIPSTICK (test code = TONY) 6.0 5.0-8.0 UA PROTEIN DIPSTICK (test code = PROU) NEGATIVE mg/dL NEGATIVE UA UROBILINIOGEN DIPSTICK (test code = URO) 2.0 (1+) mg/dL NEGATIVE A UA NITRITE DIPSTICK (test code = AMEYA) NEGATIVE NEGATIVE UA LEUKOCYTE ESTERASE W REFLEX (test code = LEUUR) TRACE Julius/uL NEG ATIVE A UA WBC (test code = WBCU) 11-20 per HPF 0-5 A UA RBC (test code = RBCU) 0-2 #/HPF 0-5 UA EPITHELIAL CELLS (test code = EPIU) FEW per HPF FEW UA BACTERIA (test code = BACU) FEW #/HPF NONE A UA MUCUS (test code = MUCU) FEW #/LPF FEW Urine Source? Clean CatchURINALYSIS [id number] 14:21:00* Test Item Value Reference Range Interpretation Comments UA COLOR (test code = COLU) DARK YELLOW YELLOW A UA APPEARANCE (test code = APPU) CLEAR CLEAR UA GLUCOSE DIPSTICK (test code = DGLUU) NEGATIVE mg/dL NEGATIVE UA BILIRUBIN DIPSTICK (test code = BILU) NEGATIVE mg/dL NEGATIVE UA KETONE DIPSTICK (test code = KETU) 80 (3+) mg/dL NEGATIVE A UA SPECIFIC GRAVITY (test code = SGU) 1.026 1.001-1.035 UA BLOOD DIPSTICK (test code = ELIJAH) Negative mg/dL NEGATIVE UA PH DIPSTICK (test code = TONY) 6.0 5.0-8.0 UA PROTEIN DIPSTICK (test code = PROU) NEGATIVE mg/dL NEGATIVE UA UROBILINIOGEN DIPSTICK (test code = URO) 2.0 (1+) mg/dL NEGATIVE A UA NITRITE DIPSTICK (test code = AMEYA) NEGATIVE NEGATIVE UA LEUKOCYTE ESTERASE W REFLEX (test code = LEUUR) TRACE Julius/uL NEG ATIVE A UA WBC (test code = WBCU) per HPF 0-5 UA RBC (test code = RBCU) per HPF 0-5 UA EPITHELIAL CELLS (test code = EPIU) per HPF Few UA BACTERIA (test code = BACU) per HPF NONE Urine Source? Clean CatchCBC W/O [id number] 12:34:00* Test Item Value Reference Range Interpretation Comments WHITE BLOOD CELL (test code = WBC) 8.1 K/mm3 4.5-12.5 N RED BLOOD CELL (test code = RBC) 5.58 mill/mm3 4.0-5.8 N HEMOGLOBIN (test code = HGB) 16.8 gram/dL 13.0-17.5 N HEMATOCRIT (test code = HCT) 48.6 % 42.0-52.0 N MEAN CELL VOLUME (test code = MCV) 87.1 fL 80-98 N MEAN CELL HGB (test code = MCH) 30.1 picogram 27.0-33.0 N MEAN CELL HGB CONCETRATION (test code = MCHC) 34.6 gram/dL 33.0-36. 0 N RED CELL DISTRIBUTION WIDTH (test code = RDW) 13.4 % 11.6-16. 2 N PLATELET COUNT (test code = PLT) 205 K/mm3 150-450 N MEAN PLATELET VOLUME (test code = MPV) 10.4 fL 6.7-11.0 N BASIC METABOLIC [id number] 12:27:00* Test Item Value Reference Range Interpretation Comments SODIUM (test code = NA) 141 mmol/L 136-145 N POTASSIUM (test code = K) 3.7 mmol/L 3.5-5.1 N CHLORIDE (test code = CL) 108.0 mmol/L 98-107 H CARBON DIOXIDE (test code = CO2) 24.0 mmol/L 21-32 N ANION GAP (test code = GAP) 12.7 10-20 N GLUCOSE (test code = GLU) 141 mg/dL 74-106 H BLOOD UREA NITROGEN (test code = BUN) 13 mg/dL 7-18 N GLOMERULAR FILTRATION RATE (test code = GFR) > 60 mL/min >=60 Estimated GFR by using Modified MDRD formula.Chronic kidney disease is defined as either kidney damageor GFR <60 mL/min/1.73 m2 for >3 months. CREATININE (test code = CREAT) 1.00 mg/dL 0.7-1.3 N BUN/CREATININE RATIO (test code = BUN/CREA) 13.0 10-20 N CALCIUM (test code = CA) 8.9 mg/dL 8.5-10.1 N [id number] 12:27:00* Test Item Value Reference Range Interpretation Comments MAGNESIUM (test code = MAG) 2.8 mg/dL 1.8-2.4 H BASIC METABOLIC [id number] 12:25:00* Test Item Value Reference Range Interpretation Comments SODIUM (test code = NA) 141 mmol/L 136-145 N POTASSIUM (test code = K) 3.7 mmol/L 3.5-5.1 N CHLORIDE (test code = CL) 108.0 mmol/L 98-107 H CARBON DIOXIDE (test code = CO2) mmol/L 21-32 ANION GAP (test code = GAP) 10-20 GLUCOSE (test code = GLU) mg/dL 74-106 BLOOD UREA NITROGEN (test code = BUN) mg/dL 7-18 GLOMERULAR FILTRATION RATE (test code = GFR) mL/min >=60 CREATININE (test code = CREAT) mg/dL 0.7-1.3 BUN/CREATININE RATIO (test code = BUN/CREA) 10-20 CALCIUM (test code = CA) mg/dL 8.5-10.1 [id number] 12:25:00* Test Item Value Reference Range Interpretation Comments MAGNESIUM (test code = MAG) mg/dL 1.8-2.4 CBC W/O [id number] 12:17:00* Test Item Value Reference Range Interpretation Comments WHITE BLOOD CELL (test code = WBC) K/mm3 4.5-12.5 RED BLOOD CELL (test code = RBC) mill/mm3 4.0-5.8 HEMOGLOBIN (test code = HGB) 16.8 gram/dL 13.0-17.5 N HEMATOCRIT (test code = HCT) 48.6 % 42.0-52.0 N MEAN CELL VOLUME (test code = MCV) fL 80-98 MEAN CELL HGB (test code = MCH) picogram 27.0-33.0 MEAN CELL HGB CONCETRATION (test code = MCHC) gram/dL 33.0-36. 0 RED CELL DISTRIBUTION WIDTH (test code = RDW) % 11.6-16. 2 PLATELET COUNT (test code = PLT) K/mm3 150-450 MEAN PLATELET VOLUME (test code = MPV) fL 6.7-11.0 - XR CHEST 1 [id number] 11:42:00 FAX: Tawanna Mcgowan [phone] [place]: [address] St: REG Name: LAMBERTO LANG [facility] : [birth year] Age/S: 32/M Paulie Felix Unit #: [id number] Loc: [place] [address] Phys: Tawanna Jackson MD Acct: [id number] Dis Date: Status: REG ER PHONE #: [phone] Exam Date: 09/16/2018 1130 FAX #: [phone] Reason: CHEST PAIN EXAMS: CPT CODE: [id number] XR CHEST 1 V 56221 HISTORY: Chest pain. COMPARISON: Chest x-ray from September 13, 2014. No acute infiltrates, effusion or congestion is noted. COPD with hyperinflation and scarring. The cardiac and mediastinal silhouette are within normal limits. IMPRESSION: No acute infiltrates, effusion or congestion. at 1142 Reported and signed by: Hal Luke M.D. CC: Tawanna Jackson MD Technologist: LAMBERTO RUGGIERO RT(R) Trnscrd Date/Time/By: 09/16/2018 (1142) : By: [email or web address] Orig Print D/T: S: (1148) PAGE 1 Signed Rep ort Creatine Kinase [id number] 01:41:00* Test Item Value Reference Range Interpretation Comments Creatine Kinase MB (test code = 50747-9) 11.90 0-5.0 H [facility] [id number] 01:41:00* Test Item Value Reference Range Interpretation Comments Troponin I (test code = GNE9605) 0.129 0-0.300 [facility] [id number] 01:41:00* Test Item Value Reference Range Interpretation Comments Creatine Kinase MB (test code = 90937-5) 11.90 0-5.0 H [facility] [id number] 01:41:00* Test Item Value Reference Range Interpretation Comments Troponin I (test code = TNP4716) 0.129 0-0.300 [facility] [id number] 01:41:00* Test Item Value Reference Range Interpretation Comments Creatine Kinase MB (test code = 63006-4) 11.90 0-5.0 [facility] [id number] 01:41:00* Test Item Value Reference Range Interpretation Comments Troponin I (test code = PMZ5603) 0.129 0-0.300 [facility] [id number] 01:19:00* Test Item Value Reference Range Interpretation Comments Creatine Kinase (test code = 2157-6) 628 30-200 [facility] Bsrcgu9078-27-91 01:19:00* Test Item Value Reference Range Interpretation Comments Creatine Kinase (test code = 2157-6) 628 30-200 [facility] [id number] 01:19:00* Test Item Value Reference Range Interpretation Comments Creatine Kinase (test code = 2157-6) 628 30-200 [facility] [id number] 00:21:00* Test Item Value Reference Range Interpretation Comments White Blood Count (test code = 6690-2) 7.99 4.8-10.8 [facility] Oitii6756-53-09 00:21:00* Test Item Value Reference Range Interpretation Comments Red Blood Count (test code = 789-8) 5.12 4.3-5.7 [facility]2018-12-[facility] 00:21:00* Test Item Value Reference Range Interpretation Comments Hemoglobin (test code = 82007-7) 15.6 14.0-18.0 [facility]2018-12-23 00:21:00* Test Item Value Reference Range Interpretation Comments Hematocrit (test code = 4544-3) 45.1 38.2-49.6 [facility] Dhaztr1495-55-05 00:21:00* Test Item Value Reference Range Interpretation Comments Mean Corpuscular Volume (test code = 787-2) 88.1 81-99 [facility] Qpjsjcpelj5521-33-31 00:21:00* Test Item Value Reference Range Interpretation Comments Mean Corpuscular Hemoglobin (test code = 785-6) 30.5 28-32 [facility] Hemoglobin Concent 2018-05-22 00:21:00* Test Item Value Reference Range Interpretation Comments Mean Corpuscular Hemoglobin Concent (test code = 786-4) 34.6 31-35 [facility] Iqmnr9477-70-83 00:21:00* Test Item Value Reference Range Interpretation Comments Red Cell Distribution Width (test code = 67297-9) 13.2 11.7 -14.4 [facility] HospitalPlatelet Bgszb6254-73-89 00:21:00* Test Item Value Reference Range Interpretation Comments Platelet Count (test code = 777-3) 198 140-360 [facility] (%) (Auto)2018-05-22 00:21:00 * Test Item Value Reference Range Interpretation Comments Neutrophils (%) (Auto) (test code = 32827-0) 48.2 38.7-80.0 [facility] HospitalLymphocytes (%) (Auto)2018-05-22 00:21:00 * Test Item Value Reference Range Interpretation Comments Lymphocytes (%) (Auto) (test code = 736-9) 38.5 18.0-39.1 [facility] HospitalMonocytes (%) (Auto)2018-05-22 00:21:00* Test Item Value Reference Range Interpretation Comments Monocytes (%) (Auto) (test code = 5905-5) 7.0 4.4-11.3 [facility] HospitalEosinophils (%) (Auto)2018-05-22 00:21:00 * Test Item Value Reference Range Interpretation Comments Eosinophils (%) (Auto) (test code = 713-8) 5.8 0.0-6.0 [facility] HospitalBasophils (%) (Auto)2018-05-22 00:21:00* Test Item Value Reference Range Interpretation Comments Basophils (%) (Auto) (test code = 706-2) 0.4 0.0-1.0 [facility] HospitalIM GRANULOCYTES %2018-05-22 00:21:00* Test Item Value Reference Range Interpretation Comments IM GRANULOCYTES % (test code = IM GRANULOCYTES %) 0.1 0.0- 1.0 [facility] HospitalNeutrophils # (Auto)2018-05-22 00:21:00* Test Item Value Reference Range Interpretation Comments Neutrophils # (Auto) (test code = 751-8) 3.9 2.1-6.9 [facility] HospitalLymphocytes # (Auto)2018-05-22 00:21:00* Test Item Value Reference Range Interpretation Comments Lymphocytes # (Auto) (test code = 41276-4) 3.1 1.0-3.2 [facility] HospitalMonocytes # (Auto)2018-05-22 00:21:00* Test Item Value Reference Range Interpretation Comments Monocytes # (Auto) (test code = 742-7) 0.6 0.2-0.8 [facility] HospitalEosinophils # (Auto)2018-05-22 00:21:00* Test Item Value Reference Range Interpretation Comments Eosinophils # (Auto) (test code = 711-2) 0.5 0.0-0.4 H [facility] HospitalBasophils # (Auto)2018-05-22 00:21:00* Test Item Value Reference Range Interpretation Comments Basophils # (Auto) (test code = 704-7) 0.0 0.0-0.1 [facility] HospitalAbsolute Immature Granulocyte (auto 2018-05-22 00:21:00* Test Item Value Reference Range Interpretation Comments Absolute Immature Granulocyte (auto (carmen t code = Absolute Immature Granulocyte (auto) 0.01 0-0.1 [facility] Yiyah3486-55-30 00:21:00* Test Item Value Reference Range Interpretation Comments Sodium Level (test code = 2951-2) 142 136-145 [facility] HospitalPotassium Qsqcg7411-31-62 00:21:00* Test Item Value Reference Range Interpretation Comments Potassium Level (test code = 2823-3) 3.1 3.5-5.1 L [facility] HospitalChloride Erfbd0481-17-90 00:21:00* Test Item Value Reference Range Interpretation Comments Chloride Level (test code = 2075-0) 105 98-107 [facility] HospitalCarbon Dioxide Baheo6737-35-82 00:21:00* Test Item Value Reference Range Interpretation Comments Carbon Dioxide Level (test code = 2028-9) 20 22-29 L [facility] HospitalAnion Lzq6052-11-22 00:21:00* Test Item Value Reference Range Interpretation Comments Anion Gap (test code = 98109-2) 20.1 8-16 H [facility] HospitalBlood Urea Fmiaxsjw6439-17-83 00:21:00* Test Item Value Reference Range Interpretation Comments Blood Urea Nitrogen (test code = 3094-0) 14 7-26 [facility] HospitalCreatinine2018-12-23 00:21:00* Test Item Value Reference Range Interpretation Comments Creatinine (test code = 2160-0) 0.95 0.72-1.25 [facility] HospitalBUN/Creatinine Zqtdl7300-04-28 00:21:00* Test Item Value Reference Range Interpretation Comments BUN/Creatinine Ratio (test code = 3097-3) 15 6-25 [facility] HospitalEstimat Glomerular Filtration Rate 2018-05-22 00:21:00* Test Item Value Reference Range Interpretation Comments Estimat Glomerular Filtration Rate (test code = 081990800) > 60 >60 Ranges were taken from the National Kidney Disease Education Program and the [facility] literature.Reference ranges:60 or greater: Yfmukh55-38 ( for 3 consecutive months): Chronic kidney disease 15 or less: Kidney failureParkview [facility] HospitalGlucose Lmzlv8346-38-68 00:21:00* Test Item Value Reference Range Interpretation Comments Glucose Level (test code = MGP0323) 119 74-118 H [facility] HospitalCalcium Mjmxl3348-98-58 00:21:00* Test Item Value Reference Range Interpretation Comments Calcium Level (test code = 69072-3) 9.3 8.4-10.2 [facility] HospitalWhite Blood Itnyh0030-59-64 00:21:00* Test Item Value Reference Range Interpretation Comments White Blood Count (test code = 6690-2) 7.99 4.8-10.8 [facility] HospitalRed Blood Avgkm0517-67-09 00:21:00* Test Item Value Reference Range Interpretation Comments Red Blood Count (test code = 789-8) 5.12 4.3-5.7 [facility] HospitalHemoglobin2018-12-23 00:21:00* Test Item Value Reference Range Interpretation Comments Hemoglobin (test code = 05461-7) 15.6 14.0-18.0 [facility] HospitalHematocrit2018-12-23 00:21:00* Test Item Value Reference Range Interpretation Comments Hematocrit (test code = 4544-3) 45.1 38.2-49.6 [facility] HospitalMean Corpuscular Ubnneg0505-57-72 00:21:00* Test Item Value Reference Range Interpretation Comments Mean Corpuscular Volume (test code = 787-2) 88.1 81-99 [facility] HospitalMean Corpuscular Ldgncjlgxz1940-56-24 00:21:00* Test Item Value Reference Range Interpretation Comments Mean Corpuscular Hemoglobin (test code = 785-6) 30.5 28-32 [facility] HospitalMean Corpuscular Hemoglobin Concent 2018-05-22 00:21:00* Test Item Value Reference Range Interpretation Comments Mean Corpuscular Hemoglobin Concent (test code = 786-4) 34.6 31-35 [facility] HospitalRed Cell Distribution Gqwrq0848-90-00 00:21:00* Test Item Value Reference Range Interpretation Comments Red Cell Distribution Width (test code = 25889-7) 13.2 11.7 -14.4 [facility] HospitalPlatelet Jufoe1020-85-83 00:21:00* Test Item Value Reference Range Interpretation Comments Platelet Count (test code = 777-3) 198 140-360 [facility] HospitalNeutrophils (%) (Auto)2018-05-22 00:21:00 * Test Item Value Reference Range Interpretation Comments Neutrophils (%) (Auto) (test code = 47915-1) 48.2 38.7-80.0 [facility] HospitalLymphocytes (%) (Auto)2018-05-22 00:21:00 * Test Item Value Reference Range Interpretation Comments Lymphocytes (%) (Auto) (test code = 736-9) 38.5 18.0-39.1 [facility] HospitalMonocytes (%) (Auto)2018-05-22 00:21:00* Test Item Value Reference Range Interpretation Comments Monocytes (%) (Auto) (test code = 5905-5) 7.0 4.4-11.3 [facility] HospitalEosinophils (%) (Auto)2018-05-22 00:21:00 * Test Item Value Reference Range Interpretation Comments Eosinophils (%) (Auto) (test code = 713-8) 5.8 0.0-6.0 [facility] HospitalBasophils (%) (Auto)2018-05-22 00:21:00* Test Item Value Reference Range Interpretation Comments Basophils (%) (Auto) (test code = 706-2) 0.4 0.0-1.0 [facility] HospitalIM GRANULOCYTES %2018-05-22 00:21:00* Test Item Value Reference Range Interpretation Comments IM GRANULOCYTES % (test code = IM GRANULOCYTES %) 0.1 0.0- 1.0 [facility] HospitalNeutrophils # (Auto)2018-05-22 00:21:00* Test Item Value Reference Range Interpretation Comments Neutrophils # (Auto) (test code = 751-8) 3.9 2.1-6.9 [facility] HospitalLymphocytes # (Auto)2018-05-22 00:21:00* Test Item Value Reference Range Interpretation Comments Lymphocytes # (Auto) (test code = 59259-1) 3.1 1.0-3.2 [facility] HospitalMonocytes # (Auto)2018-05-22 00:21:00* Test Item Value Reference Range Interpretation Comments Monocytes # (Auto) (test code = 742-7) 0.6 0.2-0.8 [facility] HospitalEosinophils # (Auto)2018-05-22 00:21:00* Test Item Value Reference Range Interpretation Comments Eosinophils # (Auto) (test code = 711-2) 0.5 0.0-0.4 H [facility] HospitalBasophils # (Auto)2018-05-22 00:21:00* Test Item Value Reference Range Interpretation Comments Basophils # (Auto) (test code = 704-7) 0.0 0.0-0.1 [facility] HospitalAbsolute Immature Granulocyte (auto 2018-05-22 00:21:00* Test Item Value Reference Range Interpretation Comments Absolute Immature Granulocyte (auto (carmen t code = Absolute Immature Granulocyte (auto) 0.01 0-0.1 [facility]odium Urwnt1162-20-18 00:21:00* Test Item Value Reference Range Interpretation Comments Sodium Level (test code = 2951-2) 142 136-145 [facility] HospitalPotassium Ueolv1902-65-79 00:21:00* Test Item Value Reference Range Interpretation Comments Potassium Level (test code = 2823-3) 3.1 3.5-5.1 L [facility] HospitalChloride Chthd4292-54-10 00:21:00* Test Item Value Reference Range Interpretation Comments Chloride Level (test code = 2075-0) 105 98-107 [facility] HospitalCarbon Dioxide Ddgnt2225-29-43 00:21:00* Test Item Value Reference Range Interpretation Comments Carbon Dioxide Level (test code = 2028-9) 20 22-29 L [facility] HospitalAnion Grc8568-20-50 00:21:00* Test Item Value Reference Range Interpretation Comments Anion Gap (test code = 30042-7) 20.1 8-16 H [facility] HospitalBlood Urea Zqogpnjw0817-85-09 00:21:00* Test Item Value Reference Range Interpretation Comments Blood Urea Nitrogen (test code = 3094-0) 14 - [facility] HospitalCreatinine2018-12-23 00:21:00* Test Item Value Reference Range Interpretation Comments Creatinine (test code = 2160-0) 0.95 0.72-1.25 [facility] HospitalBUN/Creatinine Yjsni2403-33-37 00:21:00* Test Item Value Reference Range Interpretation Comments BUN/Creatinine Ratio (test code = 3097-3) 15 11-22 [facility] HospitalEstimat Glomerular Filtration Rate 2018-05-22 00:21:00* Test Item Value Reference Range Interpretation Comments Estimat Glomerular Filtration Rate (test code = 698977238) > 60 >60 Ranges were taken from the National Kidney Disease Education Program and the [facility] literature.Reference ranges:60 or greater: Bwgctd61-07 ( for 3 consecutive months): Chronic kidney disease 15 or less: Kidney failureParkview Regional HospitalGlucose Qemlw9203-52-64 00:21:00* Test Item Value Reference Range Interpretation Comments Glucose Level (test code = GQV7874) 119 74-118 H [facility] HospitalCalcium Ybzdn7817-98-14 00:21:00* Test Item Value Reference Range Interpretation Comments Calcium Level (test code = 41106-8) 9.3 8.4-10.2 [facility] HospitalWhite Blood Rwyzb7430-04-85 00:21:00* Test Item Value Reference Range Interpretation Comments White Blood Count (test code = 6690-2) 7.99 4.8-10.8 [facility] HospitalRed Blood Nsqiy9278-23-98 00:21:00* Test Item Value Reference Range Interpretation Comments Red Blood Count (test code = 789-8) 5.12 4.3-5.7 [facility] HospitalHemoglobin2018-12-23 00:21:00* Test Item Value Reference Range Interpretation Comments Hemoglobin (test code = 28776-2) 15.6 14.0-18.0 [facility] HospitalHematocrit2018-12-23 00:21:00* Test Item Value Reference Range Interpretation Comments Hematocrit (test code = 4544-3) 45.1 38.2-49.6 [facility] HospitalMean Corpuscular Bxrhhv9118-94-66 00:21:00* Test Item Value Reference Range Interpretation Comments Mean Corpuscular Volume (test code = 787-2) 88.1 81-99 [facility] HospitalMean Corpuscular Gvnjytirgf2602-48-18 00:21:00* Test Item Value Reference Range Interpretation Comments Mean Corpuscular Hemoglobin (test code = 785-6) 30.5 28-32 [facility] HospitalMean Corpuscular Hemoglobin Concent 2018-05-22 00:21:00* Test Item Value Reference Range Interpretation Comments Mean Corpuscular Hemoglobin Concent (test code = 786-4) 34.6 31-35 [facility] HospitalRed Cell Distribution Amffl5879-73-52 00:21:00* Test Item Value Reference Range Interpretation Comments Red Cell Distribution Width (test code = 30468-8) 13.2 11.7 -14.4 [facility] HospitalPlatelet Xflmt9317-12-89 00:21:00* Test Item Value Reference Range Interpretation Comments Platelet Count (test code = 777-3) 198 140-360 [facility] HospitalNeutrophils (%) (Auto)2018-05-22 00:21:00 * Test Item Value Reference Range Interpretation Comments Neutrophils (%) (Auto) (test code = 12667-9) 48.2 38.7-80.0 [facility] HospitalLymphocytes (%) (Auto)2018-05-22 00:21:00 * Test Item Value Reference Range Interpretation Comments Lymphocytes (%) (Auto) (test code = 736-9) 38.5 18.0-39.1 [facility] HospitalMonocytes (%) (Auto)2018-05-22 00:21:00* Test Item Value Reference Range Interpretation Comments Monocytes (%) (Auto) (test code = 5905-5) 7.0 4.4-11.3 [facility] HospitalEosinophils (%) (Auto)2018-05-22 00:21:00 * Test Item Value Reference Range Interpretation Comments Eosinophils (%) (Auto) (test code = 713-8) 5.8 0.0-6.0 [facility] HospitalBasophils (%) (Auto)2018-05-22 00:21:00* Test Item Value Reference Range Interpretation Comments Basophils (%) (Auto) (test code = 706-2) 0.4 0.0-1.0 [facility] HospitalIM GRANULOCYTES %2018-05-22 00:21:00* Test Item Value Reference Range Interpretation Comments IM GRANULOCYTES % (test code = IM GRANULOCYTES %) 0.1 0.0- 1.0 [facility] HospitalNeutrophils # (Auto)2018-05-22 00:21:00* Test Item Value Reference Range Interpretation Comments Neutrophils # (Auto) (test code = 751-8) 3.9 2.1-6.9 [facility] HospitalLymphocytes # (Auto)2018-05-22 00:21:00* Test Item Value Reference Range Interpretation Comments Lymphocytes # (Auto) (test code = 48620-5) 3.1 1.0-3.2 [facility] HospitalMonocytes # (Auto)2018-05-22 00:21:00* Test Item Value Reference Range Interpretation Comments Monocytes # (Auto) (test code = 742-7) 0.6 0.2-0.8 [facility] HospitalEosinophils # (Auto)2018-05-22 00:21:00* Test Item Value Reference Range Interpretation Comments Eosinophils # (Auto) (test code = 711-2) 0.5 0.0-0.4 H [facility] HospitalBasophils # (Auto)2018-05-22 00:21:00* Test Item Value Reference Range Interpretation Comments Basophils # (Auto) (test code = 704-7) 0.0 0.0-0.1 [facility] HospitalAbsolute Immature Granulocyte (auto 2018-05-22 00:21:00* Test Item Value Reference Range Interpretation Comments Absolute Immature Granulocyte (auto (carmen t code = Absolute Immature Granulocyte (auto) 0.01 0-0.1 [facility]odium Qpqac4011-06-49 00:21:00* Test Item Value Reference Range Interpretation Comments Sodium Level (test code = 2951-2) 142 136-145 [facility] HospitalPotassium Vqwdx3636-66-07 00:21:00* Test Item Value Reference Range Interpretation Comments Potassium Level (test code = 2823-3) 3.1 3.5-5.1 L [facility] HospitalChloride Idrmi3123-62-31 00:21:00* Test Item Value Reference Range Interpretation Comments Chloride Level (test code = 2075-0) 105 98-107 [facility] HospitalCarbon Dioxide Ubwvt0312-11-99 00:21:00* Test Item Value Reference Range Interpretation Comments Carbon Dioxide Level (test code = 2028-9) 20 22-29 L [facility] HospitalAnion Vpe1138-37-33 00:21:00* Test Item Value Reference Range Interpretation Comments Anion Gap (test code = 57577-3) 20.1 8-16 H [facility] HospitalBlood Urea Oqgmgqmc8683-13-67 00:21:00* Test Item Value Reference Range Interpretation Comments Blood Urea Nitrogen (test code = 3094-0) 14 7-26 [facility] HospitalCreatinine2018-12-23 00:21:00* Test Item Value Reference Range Interpretation Comments Creatinine (test code = 2160-0) 0.95 0.72-1.25 [facility] HospitalBUN/Creatinine Xmpet9794-68-81 00:21:00* Test Item Value Reference Range Interpretation Comments BUN/Creatinine Ratio (test code = 3097-3) 15 6-25 [facility] HospitalEstimat Glomerular Filtration Rate 2018-05-22 00:21:00* Test Item Value Reference Range Interpretation Comments Estimat Glomerular Filtration Rate (test code = 349460224) > 60 >60 Ranges were taken from the National Kidney Disease Education Program and the [place] [facility] literature.Reference ranges:60 or greater: Toefhm99-04 ( for 3 consecutive months): Chronic kidney disease 15 or less: Kidney failureParkview Regional HospitalGlucose Pmxow3021-10-33 00:21:00* Test Item Value Reference Range Interpretation Comments Glucose Level (test code = EED9342) 119 74-118 H [facility] HospitalCalcium Cmpvb3486-97-80 00:21:00* Test Item Value Reference Range Interpretation Comments Calcium Level (test code = 20944-9) 9.3 8.4-10.2 [facility] HospitalCHEST 2 MVBLP6613-41-58 00:20:00 [facility] [address] [address] Patient Name: LAMBERTO FROST MR #: [id number] : Age/Sex: 32/M Req #: [id number] Adm Physician: Ordered by: EZEQUIEL LOCKWOOD MD Report #: [id number] Location: ER Room/Bed: Procedure: 1222-0 036 DX/CHEST 2 VIEWS Exam Date: 05/21/18 Exam Time: 3319 REPORT STATUS: Signed CHEST 2 VIEWS, Technique: CHEST 2 VIEWS Comparison: 05/21/2018 portable ra diograph Clinical history: Asthma DISCUSSION: Hyperinflation. Otherwi se unremarkable appearance of the heart, mediastinum, lungs and pleural spaces . IMPRESSION: No acute abnormality. Previously described rounded right up per hemithorax opacity was related to summation shadow and portable technique. Signed by: Dr Muriel Do MD on 05/22/2018 12:22 AM Dictated By: MURIEL DO MD 22 Transcribed By: BRIA on 05/22/18 0022 COPY TO: EZEQUIEL LOCKWOOD MD CHEST SINGLE (PORTABLE)2018-05-21 23:16:[address] [address] Patient Name: LAMBERTO FROST MR #: [id number] : 1985 Age/Sex: 32/M Req #: [id number] Adm Physician: Ordered by: EZEQUIEL LOCKWOOD MD Report #: [id number] Location: ER Room/Bed: Procedure: 1222-0 035 DX/CHEST SINGLE (PORTABLE) Exam Date: 05/21/18 E xam Time: 5 REPORT STATUS: Randi d CHEST SINGLE (PORTABLE), 05/21/2018 10:11 PM Technique: CHEST SINGLE ( PORTABLE) Comparison: 02/25/2018 Clinical history: Respiratory distress Findings: Rounded density over the right upper lobe. Otherwise stable appearan ce of the heart, mediastinum, lungs and pleural spaces with mild hyperinflatio n. Impression: 1. Rounded density over the right upper lobe, likely artif actual related to overlying lead and portable technique. Recommend follow-up u pright PA and lateral. 2. Otherwise stable chest without acute abnormality. Signed by: Dr Muriel Do MD on 05/21/2018 11:18 PM Dictated By: MURIEL DO MD [id number] Transcribed By: BRIA on 05/21/18 2318 COPY TO: EZEQUIEL LOCKWOOD MD Urine Opiates Nlwnmm4754-56-43 17:06:00* Test Item Value Reference Range Interpretation Comments Urine Opiates Screen (test code = 17832-5) NEGATIVE NEGATIVE [facility] HospitalUrine Barbiturates Gslxxi7302-69-86 17:06:00* Test Item Value Reference Range Interpretation Comments Urine Barbiturates Screen (test code = 976106227) NEGATIVE NEGA TIVE [facility] HospitalUrine Phencyclidine Pmeonu1217-54-11 17:06:00* Test Item Value Reference Range Interpretation Comments Urine Phencyclidine Screen (test code = 91800-3) NEGATIVE NEGAT ALEXANDRA [facility] HospitalUrine Amphetamines Ucfyfv9747-43-91 17:06:00* Test Item Value Reference Range Interpretation Comments Urine Amphetamines Screen (test code = 74687-7) NEGATIVE NEGATI VE [facility] HospitalUrine Methamphetamines Pvnhsv8088-73-80 17:06:00* Test Item Value Reference Range Interpretation Comments Urine Methamphetamines Screen (test code = Urine Metha mphetamines Screen) NEGATIVE NEGATIVE [facility] HospitalUrine Benzodiazepines Ynxnju5588-97-88 17:06:00* Test Item Value Reference Range Interpretation Comments Urine Benzodiazepines Screen (test code = 90740-6) POSITIVE NEG ATIVE H This test provides only a screen. Positive results should be repeated by a confi rmatory test.[facility] HospitalUrine Cocaine Screen 2018-02-25 17:06:00* Test Item Value Reference Range Interpretation Comments Urine Cocaine Screen (test code = 3398-5) NEGATIVE NEGATIVE [facility] HospitalUrine Cannabinoids Skooyx1612-52-37 17:06:00* Test Item Value Reference Range Interpretation Comments Urine Cannabinoids Screen (test code = 84863-9) POSITIVE NEGATI VE H THESE RESULTS ARE FOR MEDICAL TREATMENT ONLYTHIS REPORT CONTAINS UNCONFIR MED SCREENING RESULTS*POSITIVE RESULTS WILL BE CONFIRMED BY REFERENCE LAB UPON R EQUEST CUT-OFFDRUG CLASS CONCENTRATION ng/mLAmphetamines 1000Methamphetamines 1000Cocaine 300Opiate 300Phencyc lidine 25Cannabinoid 50Barbiturates 300Benzodiazepine 300Methadone 300 This test p rovides only a screen. Positive results should be repeated by a confirmatory carmen t.[facility] HospitalUrine Methadone Epwltt8822-82-93 17:06:00* Test Item Value Reference Range Interpretation Comments Urine Methadone Screen (test code = 44437-9) NEGATIVE NEGATIVE THESE RESULTS ARE FOR MEDICAL TREATMENT ONLYTHIS REPORT CONTAINS UNCONFIR MED SCREENING RESULTS*POSITIVE RESULTS WILL BE CONFIRMED BY REFERENCE LAB UPON R EQUEST CUT-OFFDRUG CLASS CONCENTRATION ng/mLAmphetamines 1000Methamphetamines 1000Cocaine Metabolite 300Opiate 300Phencyc lidine 25Cannabinoid 50Barbiturates 300Benzodiazepine 300Methadone 300[facility] Oqdsnh2776-79-90 17:06:00* Test Item Value Reference Range Interpretation Comments Urine Opiates Screen (test code = 51878-7) NEGATIVE NEGATIVE [facility] HospitalUrine Barbiturates Bykbjp7077-57-21 17:06:00* Test Item Value Reference Range Interpretation Comments Urine Barbiturates Screen (test code = 044776568) NEGATIVE NEGA TIVE [facility] HospitalUrine Phencyclidine Ettfuj1831-33-65 17:06:00* Test Item Value Reference Range Interpretation Comments Urine Phencyclidine Screen (test code = 05205-0) NEGATIVE NEGAT ALEXANDRA [facility] HospitalUrine Amphetamines Yfosfb1993-12-82 17:06:00* Test Item Value Reference Range Interpretation Comments Urine Amphetamines Screen (test code = 14893-8) NEGATIVE NEGATI VE [facility] HospitalUrine Methamphetamines Ipokps4890-50-83 17:06:00* Test Item Value Reference Range Interpretation Comments Urine Methamphetamines Screen (test code = Urine Metha mphetamines Screen) NEGATIVE NEGATIVE [facility] HospitalUrine Benzodiazepines Jduhqn1065-65-48 17:06:00* Test Item Value Reference Range Interpretation Comments Urine Benzodiazepines Screen (test code = 77460-2) POSITIVE NEG ATIVE H This test provides only a screen. Positive results should be repeated by a confi rmatory test.[facility] HospitalUrine Cocaine Screen 2018-02-25 17:06:00* Test Item Value Reference Range Interpretation Comments Urine Cocaine Screen (test code = 3398-5) NEGATIVE NEGATIVE [facility] HospitalUrine Cannabinoids Nmsgut1996-91-82 17:06:00* Test Item Value Reference Range Interpretation Comments Urine Cannabinoids Screen (test code = 42515-0) POSITIVE NEGATI VE H THESE RESULTS ARE FOR MEDICAL TREATMENT ONLYTHIS REPORT CONTAINS UNCONFIR MED SCREENING RESULTS*POSITIVE RESULTS WILL BE CONFIRMED BY REFERENCE LAB UPON R EQUEST CUT-OFFDRUG CLASS CONCENTRATION ng/mLAmphetamines 1000Methamphetamines 1000Cocaine 300Opiate 300Phencyc lidine 25Cannabinoid 50Barbiturates 300Benzodiazepine 300Methadone 300 This test p rovides only a screen. Positive results should be repeated by a confirmatory carmen t.[facility] HospitalUrine Methadone Qohksd6607-65-85 17:06:00* Test Item Value Reference Range Interpretation Comments Urine Methadone Screen (test code = 00943-5) NEGATIVE NEGATIVE THESE RESULTS ARE FOR MEDICAL TREATMENT ONLYTHIS REPORT CONTAINS UNCONFIR MED SCREENING RESULTS*POSITIVE RESULTS WILL BE CONFIRMED BY REFERENCE LAB UPON R EQUEST CUT-OFFDRUG CLASS CONCENTRATION ng/mLAmphetamines 1000Methamphetamines 1000Cocaine Metabolite 300Opiate 300Phencyc lidine 25Cannabinoid 50Barbiturates 300Benzodiazepine 300Methadone 300[facility] HospitalArterial Blood iH3030-53-78 15:44:00* Test Item Value Reference Range Interpretation Comments Arterial Blood pH (test code = 2744-1) 7.66 7.31-7.41 H [facility] HospitalArterial Blood Partial Pressure CO2 2018-02-25 15:44:00* Test Item Value Reference Range Interpretation Comments Arterial Blood Partial Pressure CO2 (test code = 2018-) 21 41-51 L [facility] HospitalArterial Blood Partial Pressure O2 2018-02-25 15:44:00* Test Item Value Reference Range Interpretation Comments Arterial Blood Partial Pressure O2 (test code = 2018-12) 529 80-105 H [facility] HospitalArterial Blood [id number] 15:44:00* Test Item Value Reference Range Interpretation Comments Arterial Blood HCO3 (test code = 1960-4) 24 -28 [facility] HospitalArterial Blood Base Ftpnhr2095-27-41 15:44:00* Test Item Value Reference Range Interpretation Comments Arterial Blood Base Excess (test code = 1925-7) 3.0 -2-3 [facility] O[facility] Saturation 2018-02-25 15:44:00* Test Item Value Reference Range Interpretation Comments Arterial Blood Oxygen Saturation (test code = 2708-6) 100.0 95-98 H [facility] HospitalFiO22018-09-28 15:44:00* Test Item Value Reference Range Interpretation Comments FiO2 (test code = FiO2) 100 BIPAP 12/6 RR 18[facility]Ar[facility] Blood pH 2018-02-25 15:44:00* Test Item Value Reference Range Interpretation Comments Arterial Blood pH (test code = 2744-1) 7.66 7.31-7.41 H [facility] Partial Pressure CO2 2018-02-25 15:44:00* Test Item Value Reference Range Interpretation Comments Arterial Blood Partial Pressure CO2 (test code = 2018-8) 21 41-51 L [facility]Ar[facility] Partial Pressure O2 2018-02-25 15:44:00* Test Item Value Reference Range Interpretation Comments Arterial Blood Partial Pressure O2 (test code = 2019-8) 529 80-105 H [facility]Ar[facility] Blood AHK79510-51-52 15:44:00* Test Item Value Reference Range Interpretation Comments Arterial Blood HCO3 (test code = 1960-4) 24 [facility]Ar[facility] Base Sdecoc9272-08-49 15:44:00* Test Item Value Reference Range Interpretation Comments Arterial Blood Base Excess (test code = 1925-7) 3.0 -2-3 [facility]Ar[facility] Oxygen Saturation 2018-02-25 15:44:00* Test Item Value Reference Range Interpretation Comments Arterial Blood Oxygen Saturation (test code = 2708-6) 100.0 95-98 H [facility] HospitalFiO22018-09-28 15:44:00* Test Item Value Reference Range Interpretation Comments FiO2 (test code = FiO2) 100 BIPAP 12/6 RR 18[facility] HospitalTotal Vnhypjpld8229-30-75 15:18:00* Test Item Value Reference Range Interpretation Comments Total Bilirubin (test code = 1975-2) 0.6 0.2-1.2 [facility] HospitalAspartate Amino Transf (AST/SGOT) 2018-02-25 15:18:00* Test Item Value Reference Range Interpretation Comments Aspartate Amino Transf (AST/SGOT) (test code = Aspartate Amino Transf (AST/SGOT)) 18 [facility] HospitalAlanine Aminotransferase (ALT/SGPT) 2018-02-25 15:18:00* Test Item Value Reference Range Interpretation Comments Alanine Aminotransferase (ALT/SGPT) (test code = 1742-6) 26 0-55 [facility] HospitalTotal Uemahyx7222-90-41 15:18:00* Test Item Value Reference Range Interpretation Comments Total Protein (test code = 2885-2) 7.2 6.5-8.1 [facility] HospitalAlbumin2018-09-28 15:18:00* Test Item Value Reference Range Interpretation Comments Albumin (test code = 1751-7) 4.2 3.5-5.0 [facility] HospitalGlobulin2018-09-28 15:18:00* Test Item Value Reference Range Interpretation Comments Globulin (test code = 59867-0) 3.0 2.3-3.5 [facility] HospitalAlbumin/Globulin Lcbkh2348-51-70 15:18:00 * Test Item Value Reference Range Interpretation Comments Albumin/Globulin Ratio (test code = 1759-0) 1.4 0.8-2.0 [facility] HospitalAlkaline Szxmazqhiia5887-36-97 15:18:00* Test Item Value Reference Range Interpretation Comments Alkaline Phosphatase (test code = 6768-6) 78 40-150 [facility] HospitalTotal Rrepvpesu7984-81-98 15:18:00* Test Item Value Reference Range Interpretation Comments Total Bilirubin (test code = 1975-2) 0.6 0.2-1.2 [facility] HospitalAspartate Amino Transf (AST/SGOT) 2018-02-25 15:18:00* Test Item Value Reference Range Interpretation Comments Aspartate Amino Transf (AST/SGOT) (test code = Aspartate Amino Transf (AST/SGOT)) 18 [facility] HospitalAlanine Aminotransferase (ALT/SGPT) 2018-02-25 15:18:00* Test Item Value Reference Range Interpretation Comments Alanine Aminotransferase (ALT/SGPT) (test code = 1742-6) 26 0-55 [facility] HospitalTotal Nxcgnlm0576-84-16 15:18:00* Test Item Value Reference Range Interpretation Comments Total Protein (test code = 2885-2) 7.2 6.5-8.1 [facility] HospitalAlbumin2018-09-28 15:18:00* Test Item Value Reference Range Interpretation Comments Albumin (test code = 1751-7) 4.2 3.5-5.0 [facility] HospitalGlobulin2018-09-28 15:18:00* Test Item Value Reference Range Interpretation Comments Globulin (test code = 90039-1) 3.0 2.3-3.5 [facility] HospitalAlbumin/Globulin Vyjed2255-82-48 15:18:00 * Test Item Value Reference Range Interpretation Comments Albumin/Globulin Ratio (test code = 1759-0) 1.4 0.8-2.0 [facility] HospitalAlkaline Bqcxgzfprjl2384-88-24 15:18:00* Test Item Value Reference Range Interpretation Comments Alkaline Phosphatase (test code = 6768-6) 78 40-150 [facility] HospitalCHEST SINGLE (PORTABLE)2018-02-25 15:01:00 [facility] [address] [address] Patient Name: LAMBERTO FROST MR #: [id number] : 1985 Age/Sex: 32/M Req #: [id number] Adm Physician: Ordered by: MIKE CHRISTINE MD Report #: [id number] Location: ER Room/Bed: Procedure: [id number] DX/CHEST SINGLE (PORT ABLE) Exam Date: Exam Time: REPORT STATUS: S igned EXAMINATION: CHEST SINGLE (PORTABLE) INDICATION: Shortne ss of breath COMPARISON: 01/31/2018 FINDINGS: TUBES and LINES: None. LUNGS: The patient is rotated to the right. Lungs are well inflate d. Prominent bilateral [place] with peribronchial wall thickening essentially unchanged. No lobar consolidations. PLEURA: No pleural effusion or pneum othorax. HEART AND MEDIASTINUM: The cardiomediastinal silhouette is unrema rkable.. BONES AND SOFT TISSUES: No acute osseous lesion. Soft tissues are unremarkable. UPPER ABDOMEN: No free air under the diaphragm. IMPRESSION: Bilateral hilar peribronchial wall thickening suggestive of vir al infection. Signed by: Dr. Sarah Melendez M.D. on 02/25/2018 3:03 PM Dictated By: SARAH MELENDEZ MD, MD 1503 Transcribed By: BRIA on 02/25/18 1503 COPY TO: MIKE RAMIREZ MD Sodium Humqu8568-72-44 07:30:00* Test Item Value Reference Range Interpretation Comments Sodium Level (test code = 2951-2) 138 136-145 [facility] HospitalPotassium Qowrs2236-46-54 07:30:00* Test Item Value Reference Range Interpretation Comments Potassium Level (test code = 2823-3) 4.3 3.5-5.1 [facility] HospitalChloride Spzwa4503-27-43 07:30:00* Test Item Value Reference Range Interpretation Comments Chloride Level (test code = 2075-0) 106 98-107 [facility] HospitalCarbon Dioxide Patxj5030-14-19 07:30:00* Test Item Value Reference Range Interpretation Comments Carbon Dioxide Level (test code = 2028-9) 24 22-29 [facility] HospitalAnion Sue5428-02-15 07:30:00* Test Item Value Reference Range Interpretation Comments Anion Gap (test code = 57621-9) 12.3 8-16 [facility] HospitalBlood Urea Dxstppnp0776-60-81 07:30:00* Test Item Value Reference Range Interpretation Comments Blood Urea Nitrogen (test code = 3094-0) 12 7-26 [facility] HospitalCreatinine2018-09-05 07:30:00* Test Item Value Reference Range Interpretation Comments Creatinine (test code = 2160-0) 0.78 0.72-1.25 [facility] HospitalBUN/Creatinine Qgodg0421-32-66 07:30:00* Test Item Value Reference Range Interpretation Comments BUN/Creatinine Ratio (test code = 3097-3) 15 6- [facility] HospitalEstimat Glomerular Filtration Rate 2018-02-02 07:30:00* Test Item Value Reference Range Interpretation Comments Estimat Glomerular Filtration Rate (test code = 80287-5) 60- >60 Ranges were taken from the National Kidney Disease Education Program and the [facility] literature.Reference ranges:60 or greater: Eerxel54-91 ( for 3 consecutive months): Chronic kidney disease 15 or less: Kidney failureParkview Regional HospitalGlucose Lavgp3947-57-77 07:30:00* Test Item Value Reference Range Interpretation Comments Glucose Level (test code = BII6367) 124 74-118 H [facility] HospitalCalcium Ovupk9716-12-14 07:30:00* Test Item Value Reference Range Interpretation Comments Calcium Level (test code = 98630-5) 9.5 8.4-10.2 [facility] HospitalCreatine Kinase XT9461-55-50 00:17:00* Test Item Value Reference Range Interpretation Comments Creatine Kinase MB (test code = 04308-5) 4.70 0-5.0 [facility] HospitalTroponin P7335-76-68 00:17:00* Test Item Value Reference Range Interpretation Comments Troponin I (test code = XOV9651) 0.006 0-0.300 [facility] HospitalCreatine Aiywan4683-13-43 00:03:00* Test Item Value Reference Range Interpretation Comments Creatine Kinase (test code = 2157-6) 129 30-200 [facility] ODC3226-79-53 10:26:00* Test Item Value Reference Range Interpretation Comments Urine WBC (test code = 5821-4) 0-5 0-5 [facility] HVG0214-88-26 10:26:00* Test Item Value Reference Range Interpretation Comments Urine RBC (test code = 05656-8) NONE 0-5 [facility] Romyvyez6341-43-50 10:26:00* Test Item Value Reference Range Interpretation Comments Urine Bacteria (test code = 00976-7) MANY NONE H [facility] HospitalUrine Epithelial Fzdco3598-31-92 10:26:00 * Test Item Value Reference Range Interpretation Comments Urine Epithelial Cells (test code = 74421-0) RARE NONE [facility] GAT8510-95-19 10:26:00* Test Item Value Reference Range Interpretation Comments Urine WBC (test code = 5821-4) 0-5 0-5 [facility] AXH3149-43-60 10:26:00* Test Item Value Reference Range Interpretation Comments Urine RBC (test code = 61356-2) NONE 0-5 [facility] Mcuimmru2335-82-04 10:26:00* Test Item Value Reference Range Interpretation Comments Urine Bacteria (test code = 02092-7) MANY NONE H [facility] HospitalUrine Epithelial Unmvm5853-24-70 10:26:00 * Test Item Value Reference Range Interpretation Comments Urine Epithelial Cells (test code = 58761-8) RARE NONE [facility] POC3579-52-85 10:26:00* Test Item Value Reference Range Interpretation Comments Urine WBC (test code = 5821-4) 0-5 0-5 [facility] CIY7334-39-66 10:26:00* Test Item Value Reference Range Interpretation Comments Urine RBC (test code = 74542-3) NONE 0-5 [facility] Kovxhtzu9693-78-45 10:26:00* Test Item Value Reference Range Interpretation Comments Urine Bacteria (test code = 94840-3) MANY NONE H [facility] Epithelial Eumks1626-76-62 10:26:00 * Test Item Value Reference Range Interpretation Comments Urine Epithelial Cells (test code = 88273-3) RARE NONE [facility] HospitalUrine Opiates Vhdprp1361-92-66 10:14:00* Test Item Value Reference Range Interpretation Comments Urine Opiates Screen (test code = 39720-9) NEGATIVE NEGATIVE [facility] HospitalUrine Barbiturates Ngievv7841-62-49 10:14:00* Test Item Value Reference Range Interpretation Comments Urine Barbiturates Screen (test code = 397364284) NEGATIVE NEGA TIVE [facility] HospitalUrine Phencyclidine Qgfqnp6424-12-39 10:14:00* Test Item Value Reference Range Interpretation Comments Urine Phencyclidine Screen (test code = 59227-0) NEGATIVE NEGAT ALEXANDRA [facility] HospitalUrine Amphetamines Hooarr1134-83-37 10:14:00* Test Item Value Reference Range Interpretation Comments Urine Amphetamines Screen (test code = 69567-0) NEGATIVE NEGATI VE [facility] HospitalUrine Methamphetamines Ebdgmf7275-27-94 10:14:00* Test Item Value Reference Range Interpretation Comments Urine Methamphetamines Screen (test code = Urine Metha mphetamines Screen) NEGATIVE NEGATIVE [facility] HospitalUrine Benzodiazepines Vwqqcz9550-38-98 10:14:00* Test Item Value Reference Range Interpretation Comments Urine Benzodiazepines Screen (test code = 44571-6) NEGATIVE NEG ATIVE [facility] HospitalUrine Cocaine Hwbyiw9014-88-91 10:14:00* Test Item Value Reference Range Interpretation Comments Urine Cocaine Screen (test code = 3398-5) NEGATIVE NEGATIVE [facility] HospitalUrine Cannabinoids Siqnwh7944-99-14 10:14:00* Test Item Value Reference Range Interpretation Comments Urine Cannabinoids Screen (test code = 79178-5) NEGATIVE NEGATI VE THESE RESULTS ARE FOR MEDICAL TREATMENT ONLYTHIS REPORT CONTAINS UNCONFIR MED SCREENING RESULTS*POSITIVE RESULTS WILL BE CONFIRMED BY REFERENCE LAB UPON R EQUEST CUT-OFFDRUG CLASS CONCENTRATION ng/mLAmphetamines 1000Methamphetamines 1000Cocaine 300Opiate 300Phencyc lidine 25Cannabinoid 50Barbiturates 300Benzodiazepine 300Methadone 300[facility] Oyuah1199-91-43 10:13:00* Test Item Value Reference Range Interpretation Comments Urine Color (test code = 5778-6) YELLOW YELLOW [facility] HospitalUrine Pqgoxtg7034-94-25 10:13:00* Test Item Value Reference Range Interpretation Comments Urine Clarity (test code = 14263-2) CLOUDY CLEAR H [facility] Specific Wuzeyit8142-77-30 10:13:00 * Test Item Value Reference Range Interpretation Comments Urine Specific [place] (test code = 5811-5) 1.015 1.010-1.02 5 [facility] HospitalU[facility] xE0160-81-41 10:13:00* Test Item Value Reference Range Interpretation Comments Urine pH (test code = 86798-0) 8 5-7 H [facility] Leukocyte Txghpshn3275-67-71 10:13:00* Test Item Value Reference Range Interpretation Comments Urine Leukocyte Esterase (test code = 5799-2) NEGATIVE NEGATIVE [facility] Obqzbhy6932-02-23 10:13:00* Test Item Value Reference Range Interpretation Comments Urine Nitrite (test code = 26834-0) NEGATIVE NEGATIVE [facility] Nmpuxrx4560-26-95 10:13:00* Test Item Value Reference Range Interpretation Comments Urine Protein (test code = 5804-0) NEGATIVE NEGATIVE [facility] Glucose (UA)2018-01-31 10:13:00* Test Item Value Reference Range Interpretation Comments Urine Glucose (UA) (test code = 2349-9) NEGATIVE NEGATIVE [facility] HospitalU[facility] Zoqmxst8745-59-83 10:13:00* Test Item Value Reference Range Interpretation Comments Urine Ketones (test code = 64823-4) 1+ NEGATIVE H [facility] HospitalUrine Detijsrkxcgz1633-73-50 10:13:00* Test Item Value Reference Range Interpretation Comments Urine Urobilinogen (test code = 67187-8) 1 0.2-1 [facility] HospitalU[facility] Vzntkgunz1810-21-81 10:13:00* Test Item Value Reference Range Interpretation Comments Urine Bilirubin (test code = 1978-6) NEGATIVE NEGATIVE [facility] HospitalU[facility] Wyolr3620-34-01 10:13:00* Test Item Value Reference Range Interpretation Comments Urine Blood (test code = 62806-5) NEGATIVE NEGATIVE [facility] HospitalU[facility] Ywjzr4362-17-39 10:13:00* Test Item Value Reference Range Interpretation Comments Urine Color (test code = 5778-6) YELLOW YELLOW [facility] HospitalU[facility] Osfrkoy9639-58-76 10:13:00* Test Item Value Reference Range Interpretation Comments Urine Clarity (test code = 50772-0) CLOUDY CLEAR H [facility] Specific Ddvtqnu7016-86-31 10:13:00 * Test Item Value Reference Range Interpretation Comments Urine Specific [place] (test code = 5811-5) 1.015 1.010-1.02 5 [facility] pA7790-95-28 10:13:00* Test Item Value Reference Range Interpretation Comments Urine pH (test code = 96638-4) 8 5-7 H [facility] Leukocyte Sikgkdjj3013-61-51 10:13:00* Test Item Value Reference Range Interpretation Comments Urine Leukocyte Esterase (test code = 5799-2) NEGATIVE NEGATIVE [facility] Ocijxel4821-32-68 10:13:00* Test Item Value Reference Range Interpretation Comments Urine Nitrite (test code = 69864-7) NEGATIVE NEGATIVE [facility] HospitalU[facility] Ileopkc4887-36-87 10:13:00* Test Item Value Reference Range Interpretation Comments Urine Protein (test code = 5804-0) NEGATIVE NEGATIVE [facility] HospitalU[facility] Glucose (UA)2018-01-31 10:13:00* Test Item Value Reference Range Interpretation Comments Urine Glucose (UA) (test code = 2349-9) NEGATIVE NEGATIVE [facility] HospitalU[facility] Nqcknyg2008-20-31 10:13:00* Test Item Value Reference Range Interpretation Comments Urine Ketones (test code = 58735-7) 1+ NEGATIVE H [facility] HospitalUrine Pwejtamyzgcg9684-52-61 10:13:00* Test Item Value Reference Range Interpretation Comments Urine Urobilinogen (test code = 33488-8) 1 0.2-1 [facility] HospitalU[facility] Mlfjqtzct6010-20-94 10:13:00* Test Item Value Reference Range Interpretation Comments Urine Bilirubin (test code = 1978-6) NEGATIVE NEGATIVE [facility] HospitalU[facility] Fmrhh3805-58-57 10:13:00* Test Item Value Reference Range Interpretation Comments Urine Blood (test code = 74497-9) NEGATIVE NEGATIVE [facility] HospitalU[facility] Lwcyq9035-37-38 10:13:00* Test Item Value Reference Range Interpretation Comments Urine Color (test code = 5778-6) YELLOW YELLOW [facility] HospitalU[facility] Cqzilkw7418-55-68 10:13:00* Test Item Value Reference Range Interpretation Comments Urine Clarity (test code = 34969-1) CLOUDY CLEAR H [facility] Specific Qlesyus0266-30-74 10:13:00 * Test Item Value Reference Range Interpretation Comments Urine Specific [place] (test code = 5811-5) 1.015 1.010-1.02 5 [facility] HospitalU[facility] mG6160-67-27 10:13:00* Test Item Value Reference Range Interpretation Comments Urine pH (test code = 87810-9) 8 5-7 H [facility] HospitalU[facility] Leukocyte Yjukznze3425-59-69 10:13:00* Test Item Value Reference Range Interpretation Comments Urine Leukocyte Esterase (test code = 5799-2) NEGATIVE NEGATIVE [facility] HospitalU[facility] Qwjkjnr3198-25-91 10:13:00* Test Item Value Reference Range Interpretation Comments Urine Nitrite (test code = 64741-9) NEGATIVE NEGATIVE [facility] HospitalU[facility] Ieltsvj8230-30-67 10:13:00* Test Item Value Reference Range Interpretation Comments Urine Protein (test code = 5804-0) NEGATIVE NEGATIVE [facility] HospitalU[facility] Glucose (UA)2018-01-31 10:13:00* Test Item Value Reference Range Interpretation Comments Urine Glucose (UA) (test code = 2349-9) NEGATIVE NEGATIVE [facility] HospitalU[facility] Dhxoqbf6806-69-03 10:13:00* Test Item Value Reference Range Interpretation Comments Urine Ketones (test code = 60038-0) 1+ NEGATIVE H [facility] HospitalUrine Rkskwxlacrcv3877-74-45 10:13:00* Test Item Value Reference Range Interpretation Comments Urine Urobilinogen (test code = 39040-3) 1 0.2-1 [facility] Ywussvucw5767-11-62 10:13:00* Test Item Value Reference Range Interpretation Comments Urine Bilirubin (test code = 1978-6) NEGATIVE NEGATIVE [facility] HospitalU[facility] Gmoyx8552-39-22 10:13:00* Test Item Value Reference Range Interpretation Comments Urine Blood (test code = 87722-1) NEGATIVE NEGATIVE [facility] HospitalMagnesium Ocjcg1519-52-70 08:59:00* Test Item Value Reference Range Interpretation Comments Magnesium Level (test code = 78926-1) 2.3 1.3-2.1 H [facility] HospitalTotal Gaisragbw5656-61-41 08:59:00* Test Item Value Reference Range Interpretation Comments Total Bilirubin (test code = 1975-2) 1.3 0.2-1.2 H [facility] HospitalAspartate Amino Transf (AST/SGOT) 2018-01-31 08:59:00* Test Item Value Reference Range Interpretation Comments Aspartate Amino Transf (AST/SGOT) (test code = Aspartate Amino Transf (AST/SGOT)) 20 5-34 [facility] HospitalAlanine Aminotransferase (ALT/SGPT) 2018-01-31 08:59:00* Test Item Value Reference Range Interpretation Comments Alanine Aminotransferase (ALT/SGPT) (test code = 1742-6) 32 0-55 [facility] HospitalTotal Iqqlcbs0664-68-08 08:59:00* Test Item Value Reference Range Interpretation Comments Total Protein (test code = 2885-2) 7.7 6.5-8.1 [facility] HospitalAlbumin2018-09-03 08:59:00* Test Item Value Reference Range Interpretation Comments Albumin (test code = 1751-7) 4.9 3.5-5.0 [facility] HospitalGlobulin2018-09-03 08:59:00* Test Item Value Reference Range Interpretation Comments Globulin (test code = 75425-8) 2.8 2.3-3.5 [facility] HospitalAlbumin/Globulin Manbg8954-73-51 08:59:00 * Test Item Value Reference Range Interpretation Comments Albumin/Globulin Ratio (test code = 1759-0) 1.8 0.8-2.0 [facility] HospitalAlkaline Nhmakbdkuhq1222-41-77 08:59:00* Test Item Value Reference Range Interpretation Comments Alkaline Phosphatase (test code = 6768-6) 73 40-150 [facility] HospitalMagnesium Znsgl4883-05-59 08:59:00* Test Item Value Reference Range Interpretation Comments Magnesium Level (test code = 68079-8) 2.3 1.3-2.1 H [facility] HospitalMagnesium Olulg7030-51-52 08:59:00* Test Item Value Reference Range Interpretation Comments Magnesium Level (test code = 53120-0) 2.3 1.3-2.1 H [facility] HospitalCHEST SINGLE (PORTABLE)2018-01-31 08:57:00 [facility] [address] [place] [address] Patient Name: LAMBERTO FROST MR #: [id number] : 1985 Age/Sex: 32/M Req #: [id number] Adm Physician: Ordered by: REGULO BENTLEY MD Report #: [id number] Location: ER Room/Bed: Procedure: [id number] DX/CHEST SINGLE (PORTABLE ) Exam Date: 01/31/18 Exam Time: 0838 REPORT S TATUS: Signed EXAMINATION: CHEST SINGLE (PORTABLE) INDICATION: COMPARISON: Chest radiograph 03/16/2016 FINDINGS: AP view TUBES and LINES: None. LUNGS: Lungs are well inflated. Pr ominent bilateral [place] with peribronchial wall thickening. No lobar consolid ations. PLEURA: No pleural effusion or pneumothorax. HEART AND MEDIAS TINUM: The cardiomediastinal silhouette is unremarkable.. BONES AND SOFT TISSUES: No acute osseous lesion. Soft tissues are unremarkable. UPPER ABDOMEN: No free air under the diaphragm. IMPRESSION: Bilateral hil ar peribronchial wall thickening suggestive of viral infection. Recommend foll ow-up chest radiograph in 4-6 weeks. Signed by: Dr. Luz John M.D. on 01/31/2018 8:58 AM Dictated By: LUZ MORE MD El ectronically Signed By: LUZ MORE MD on 01/31/18857 Transcribed By: BRIA on 01/31/18857 COPY TO: REGULO BENTLEY MD Activated Partial Thromboplast Zgxi1920-74-15 08:50:00* Test Item Value Reference Range Interpretation Comments Activated Partial Thromboplast Time (test code = 98278-0) 32.4 23.8-35.5 [facility] HospitalAct[facility] Partial Thromboplast Time 2018-01-31 08:50:00* Test Item Value Reference Range Interpretation Comments Activated Partial Thromboplast Time (test code = 13045-1) 32.4 23.8-35.5 [facility] HospitalActivated Partial Thromboplast Time 2018-01-31 08:50:00* Test Item Value Reference Range Interpretation Comments Activated Partial Thromboplast Time (test code = 70629-8) 32.4 23.8-35.5 [facility] HospitalProthrombin Bosq5489-39-40 08:49:00* Test Item Value Reference Range Interpretation Comments Prothrombin Time (test code = 5902-2) 13.1 11.9-14.5 [facility] HospitalProthromb Time International Ratio 2018-01-31 08:49:00* Test Item Value Reference Range Interpretation Comments Prothromb Time International Ratio (test code = 6301-6) 1.07 Oral Anticoagulant Therapy INR Values:1. Low Intensity Therapy 1.5 - 2.02 . Moderate Intensity Therapy 2.0 - 3.03. High Intensity Therapy(1) 2.5 - 3. 54. High Intensity Therapy(2) 3.0 - 4.05. Panic Value INR > 5.0 [facility] HospitalProthrombin Nxmw6359-53-74 08:49:00* Test Item Value Reference Range Interpretation Comments Prothrombin Time (test code = 5902-2) 13.1 11.9-14.5 [facility] HospitalProthromb Time International Ratio 2018-01-31 08:49:00* Test Item Value Reference Range Interpretation Comments Prothromb Time International Ratio (test code = 6301-6) 1.07 Oral Anticoagulant Therapy INR Values:1. Low Intensity Therapy 1.5 - 2.02 . Moderate Intensity Therapy 2.0 - 3.03. High Intensity Therapy(1) 2.5 - 3. 54. High Intensity Therapy(2) 3.0 - 4.05. Panic Value INR > 5.0 [facility] HospitalProthrombin Cols9250-67-41 08:49:00* Test Item Value Reference Range Interpretation Comments Prothrombin Time (test code = 5902-2) 13.1 11.9-14.5 [facility] HospitalProthromb Time International Ratio 2018-01-31 08:49:00* Test Item Value Reference Range Interpretation Comments Prothromb Time International Ratio (test code = 6301-6) 1.07 Oral Anticoagulant Therapy INR Values:1. Low Intensity Therapy 1.5 - 2.02 . Moderate Intensity Therapy 2.0 - 3.03. High Intensity Therapy(1) 2.5 - 3. 54. High Intensity Therapy(2) 3.0 - 4.05. Panic Value INR > 5.0 [facility] [facility] [id number] 08:41:00* Test Item Value Reference Range Interpretation Comments White Blood Count (test code = 6690-2) 7.59 4.8-10.8 [facility] [id number] 08:41:00* Test Item Value Reference Range Interpretation Comments Red Blood Count (test code = 789-8) 5.57 4.3-5.7 [facility]2018-[facility] 08:41:00* Test Item Value Reference Range Interpretation Comments Hemoglobin (test code = 43910-0) 17.1 14.0-18.0 [facility]Hematocrit2018-09-03 08:41:00* Test Item Value Reference Range Interpretation Comments Hematocrit (test code = 4544-3) 48.0 38.2-49.6 [facility] HospitalMean Corpuscular [id number] 08:41:00* Test Item Value Reference Range Interpretation Comments Mean Corpuscular Volume (test code = 787-2) 86.2 81-99 [facility] Corpuscular [id number] 08:41:00* Test Item Value Reference Range Interpretation Comments Mean Corpuscular Hemoglobin (test code = 785-6) 30.7 28-32 [facility] Hemoglobin Concent 2018-01-31 08:41:00* Test Item Value Reference Range Interpretation Comments Mean Corpuscular Hemoglobin Concent (test code = 786-4) 35.6 31-35 H [facility]Red Cell Distribution [id number] 08:41:00* Test Item Value Reference Range Interpretation Comments Red Cell Distribution Width (test code = 15255-2) 13.7 11.7 -14.4 [facility] HospitalPlatelet [id number] 08:41:00* Test Item Value Reference Range Interpretation Comments Platelet Count (test code = 777-3) 239 140-360 [facility] HospitalNeutrophils (%) (Auto)2018-01-31 08:41:00 * Test Item Value Reference Range Interpretation Comments Neutrophils (%) (Auto) (test code = 44095-2) 52.4 38.7-80.0 [facility] HospitalLymphocytes (%) (Auto)2018-01-31 08:41:00 * Test Item Value Reference Range Interpretation Comments Lymphocytes (%) (Auto) (test code = 736-9) 34.5 18.0-39.1 [facility] HospitalMonocytes (%) (Auto)2018-01-31 08:41:00* Test Item Value Reference Range Interpretation Comments Monocytes (%) (Auto) (test code = 5905-5) 7.0 4.4-11.3 [facility] HospitalEosinophils (%) (Auto)2018-01-31 08:41:00 * Test Item Value Reference Range Interpretation Comments Eosinophils (%) (Auto) (test code = 713-8) 5.0 0.0-6.0 [facility]Basophils (%) (Auto)2018-01-31 08:41:00* Test Item Value Reference Range Interpretation Comments Basophils (%) (Auto) (test code = 706-2) 0.8 0.0-1.0 [facility] HospitalIM GRANULOCYTES %2018-01-31 08:41:00* Test Item Value Reference Range Interpretation Comments IM GRANULOCYTES % (test code = IM GRANULOCYTES %) 0.3 0.0- 1.0 [facility] HospitalNeutrophils # (Auto)2018-01-31 08:41:00* Test Item Value Reference Range Interpretation Comments Neutrophils # (Auto) (test code = 751-8) 4.0 2.1-6.9 [facility] HospitalLymphocytes # (Auto)2018-01-31 08:41:00* Test Item Value Reference Range Interpretation Comments Lymphocytes # (Auto) (test code = 39305-1) 2.6 1.0-3.2 [facility] HospitalMonocytes # (Auto)2018-01-31 08:41:00* Test Item Value Reference Range Interpretation Comments Monocytes # (Auto) (test code = 742-7) 0.5 0.2-0.8 [facility]Eosinophils # (Auto)2018-01-31 08:41:00* Test Item Value Reference Range Interpretation Comments Eosinophils # (Auto) (test code = 711-2) 0.4 0.0-0.4 [facility]Basophils # (Auto)2018-01-31 08:41:00* Test Item Value Reference Range Interpretation Comments Basophils # (Auto) (test code = 704-7) 0.1 0.0-0.1 [facility] HospitalAbsolute Immature Granulocyte (auto 2018-01-31 08:41:00* Test Item Value Reference Range Interpretation Comments Absolute Immature Granulocyte (auto (carmen t code = Absolute Immature Granulocyte (auto) 0.02 0-0.1 [facility]
[2019-10-29] MEDS ORDERED: LORAZEPAM INJ 2 MG/ML VIAL IV NR (10:30)
--- NOTE | 2019-10-29 10:55 | Emergency Department Note ---
History of Present Illnes History of Present Illness Chief Complaint: anxiety attack attack History of Present Illness This is a 34 year old male. was doing well prior to this. then woke up this am , thought about his mother on his birthday today then had an anxiety attack that triggered an asthma attack according to pt. . pt did nebs at home and on the ambulance. 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 PLASTICIAN: See EMS Report (pt give nebs and solu medrol) History limited by: condition of the patient Onset (how long ago): hour(s) (3) Location: see above Quality: see above Radiation: non-radiation Severity: moderate Onset quality: sudden Duration (how long): hour(s) (3) Timing of current episode: constant Progression: other (asthma is much better but anxiety is still high according to pt) Context: recent illness, recent surgery, recent immobilization, recent travel, trauma/injury, new medications, hx of DVT/PE, non-compliance w/ medications Relieving factors: none Exacerbating factors: none Associated symptoms: cough, shortness of breath Treatments prior to arrival: other (see above) Past Medical/Family History Physician Review I have reviewed the patient's past medical and family history. Any updates have been documented here. Past Medical History Recent Fever: No Clinical Suspicion of Infectio: No New/Unexplained Change in Ment: No Past Medical History: Asthma, Anxiety Other Medical History: anxiety Past Surgical History: None Social History Smoking Cessation: Former smoker Counseling Performed: No Alcohol Use: None Any Illegal Drug Use: No TB Exposure/Symptoms: No Physically hurt or threatened: No Other Last Tetanus: UNKNOWN Last Flu: Y Last Pneumovax: Y Review of Systems Review of Systems Constitutional: no symptoms EENTM: no symptoms Cardiovascular: no symptoms Respiratory: as per HPI, wheezing Gastrointestinal: no symptoms Genitourinary: no symptoms Musculoskeletal: no symptoms Neurological: no symptoms Psychological: as per HPI, anxiety Endocrine: no symptoms Hematological/Lymphatic: no symptoms Review of other systems All other systems reviewed and negative. Physical Exam Related Data Allergies: Coded Allergies: No Known Allergies (Unverified , 05/21/18) Triage Vital Signs Vital Signs Date Time Temp Pulse Resp B/P (MAP) Pulse Ox O2 Delivery O2 Flow Rate FiO2 10/29/19 10:05 98.9 119 24 145/93 92 10/29/19 10:15 Nasal Cannula 3.0 Vital signs reviewed: Yes Physical Exam CONSTITUTIONAL Constitutional: well-developed, well-nourished HENT HENT: normocephalic, atraumatic, oropharynx clear/moist, nose normal HENT L/R: left ext ear normal, right ext ear normal EYES Eyes: PERRL, conjunctivae normal NECK Neck: ROM normal PULMONARY Pulmonary: effort normal, other (+ mild bilateral wheezing); respiratory distress CARDIOVASCULAR Cardiovascular: regular rhythm, heart sounds normal, capillary refill normal, normal rate GASTROINTESTINAL Abdominal: soft, nontender, bowel sounds normal GENITOURINARY Genitourinary: exam deferred SKIN Skin: warm, dry MUSCULOSKELETAL Musculoskeletal: ROM normal NEUROLOGICAL Neurological: alert, oriented x 3, no gross motor or sensory deficits PSYCHOLOGICAL Psychological: judgement normal, other (+very anxious) Critical Care Time Subsequent provider I assumed direction of critical care for this patient from another provider of my specialty. Assessment & Plan Reassessment Reassessment time: 11:22 Reassessment pt symptoms have almost completely resolved. [place] overdose risk score =240 Assessment & Plan Final Impression: (1) MODERATE PERSISTENT ASTHMA WITH (ACUTE) EXACERBATION (2) ANXIETY DISORDER DUE TO KNOWN PHYSIOLOGICAL CONDITION Assessment & Plan take rxed ativan, albuterol and prednisone. f/u with pcp Depart Disposition: HOME, SELF-CARE Last Vital Signs Date Time Temp Pulse Resp B/P (MAP) Pulse Ox O2 Delivery O2 Flow Rate FiO2 10/29/19 10:15 100 Nasal Cannula 3.0 10/29/19 10:15 104 12 142/85 10/29/19 10:05 98.9 Home Meds Active Scripts Albuterol Sulf* (PROAIR HFA INHALER*) 8.5 Gm Inh, 2 INH INH Q4HR PRN for SHORTNESS OF BREATH, #1 2 Refills Prov:RADHA MCPHERSON MD, ABIM 07/31/19 Famotidine (PEPCID) 20 Mg Tablet, 20 MG PO BID for 30 Days, #60 TAB 0 Refills Prov:RADHA MCPHERSON MD, ABIM 07/31/19 Prednisone (PREDNISONE) 10 Mg Tab, 0 PO DAILY, #19 TAB 0 Refills 10 mg tablets. Take 3 tablets x 3 days, then 2 tablets x 3 days, then 1 tablet x 4 days, then stop. Prov:RADHA MCPHERSON MD, ABIM 07/31/19 Reported Medications Fluticasone Propionate (Flonase Allergy Relief) 9.9 Ml [place].susp, 1 SPR NA BID 07/29/19 Salmeterol Xinaf/Fluticasone* (ADVAIR 500/50*) 1 Ea Aerp, 1 INH INH Q12H, #1 INH 02/19/19 Lorazepam (ATIVAN) 2 Mg Tablet, 1 MG PO BID PRN for ANXIETY 01/07/16 Medications in the ED Lorazepam 2 mg ONCE IV ; Start 10/29/19 at 10:30; Stop 10/29/19 at 11:00 [place] CISSE October 29, 2019 10:55
== END 2019-10-29 11:55 | disposition home or self-care (01) ==
LOC: ER 10:06
DX: J45.41 Moderate persistent asthma with (acute) exacerbation (principal); F41.9 Anxiety disorder, unspecified
CPT/HCPCS: 94760; 99284

== ENCOUNTER 2020-03-21 07:32 | Emergency (ER) | payer SELFPAY ==
[~2020-03-21] VITALS: Ht 193 cm; Wt 102.1 kg
[2020-03-21] MEDS ORDERED: ALBUTEROL/IPRATROPIUM 3 ML NEB NEB ONE (07:45)
[2020-03-21] MEDS ORDERED: MAGNESIUM SULFATE 2GM/50ML 50 ML IV ONE (07:45)
[2020-03-21] MEDS ORDERED: METHYLPREDNISOLONE SOD SUCC 125 MG/2ML VIAL IV ONE (07:45)
[2020-03-21 08:15] LABS: BASOPHILS # (AUTO) 0.1 (0.0-0.1); BASOPHILS % 0.5 % (0.0-1.0); EOSINOPHILS # (AUTO) 0.2 (0.0-0.4); EOSINOPHILS % 1.6 % (0.0-6.0); HEMATOCRIT 50.7 % (38.2-49.6); HEMOGLOBIN 18.2 g/dL (14.0-18.0); LYMPHOCYTES # (AUTO) 2.3 (1.0-3.2); LYMPHOCYTES % 23.4 % (18.0-39.1); MEAN CORPUSCULAR HEMOGLOBIN 30.5 pg (28-32); MEAN CORPUSCULAR HGB CONC 35.9 g/dL (31-35); MEAN CORPUSCULAR VOLUME 84.9 fL (81-99); MONOCYTES # (AUTO) 0.8 (0.2-0.8); MONOCYTES % 8.1 % (4.4-11.3); NEUTROPHILS # (AUTO) 6.6 (2.1-6.9); NEUTROPHILS % 66.2 % (38.7-80.0); PLATELET COUNT 254 x10e3/uL (140-360); RED BLOOD COUNT 5.97 x10e6/uL (4.3-5.7); RED CELL DISTRIBUTION WIDTH 13.3 % (11.7-14.4)
[2020-03-21] MEDS ORDERED: LORAZEPAM INJ 2 MG/ML VIAL IV ONE (08:30)
[2020-03-21 08:39] LABS: ALANINE AMINOTRANSFERASE 20 IU/L (0-55); ALBUMIN 5.1 g/dL (3.5-5.0); ALKALINE PHOSPHATASE 69 IU/L (40-150); ANION GAP 19.7 mmol/L (8-16); BLOOD UREA NITROGEN 21 mg/dL (7-26); BUN/CREATININE RATIO 22 (6-25); CALCIUM 10.1 mg/dL (8.4-10.2); CARBON DIOXIDE 18 mmol/L (22-29); CHLORIDE 108 mmol/L (98-107); CREATININE, SERUM 0.96 mg/dL (0.72-1.25); EST GLOMERULAR FILTRATION RATE > 60 ML/MIN (60-); GLUCOSE 99 mg/dL (74-118); POTASSIUM 3.7 mmol/L (3.5-5.1); SODIUM 142 mmol/L (136-145)
[2020-03-21] MEDS ORDERED: PROVENTIL HFA6.7 GM INH (09:21)
[2020-03-21] MEDS ORDERED: PREDNISONE20 MG PO (09:21)
== END 2020-03-21 10:31 | disposition home or self-care (01) ==
LOC: ER 08:08
DX: J45.901 Unspecified asthma with (acute) exacerbation (principal); F41.9 Anxiety disorder, unspecified
CPT/HCPCS: 36415; 71045; 85025; 80053; 85379; 94640; 99284; J2060; J2930; J3475

== ENCOUNTER 2020-04-25 07:55 | Emergency (ER) | payer SELFPAY ==
[~2020-04-25] VITALS: Ht 193 cm; Wt 102.5 kg
[~2020-04-25 07:55] MED LIST changes: +PROVENTIL HFA6.7 GM INH
[2020-04-25] MEDS ORDERED: ALBUTEROL/IPRATROPIUM 3 ML NEB NEB STA (08:04)
[2020-04-25] MEDS ORDERED: PREDNISONE 20 MG TAB PO STA (08:04)
[2020-04-25] MEDS ORDERED: ALBUTEROL SULF 0.083% NEB SOLN 3 ML NEB ONE ×2 (08:11→08:42)
[2020-04-25] MEDS ORDERED: PREDNISONE 20 MG TAB ONE (08:11)
[2020-04-25] MEDS ORDERED: ALBUTEROL SULF 0.083% NEB SOLN 3 ML NEB NEB STA ×2 (08:12→08:21)
[2020-04-25] MEDS ORDERED: ALBUTEROL/IPRATROPIUM 3 ML NEB ONE (08:15)
[2020-04-25 09:30] VITALS: BP 130/75
== END 2020-04-25 09:13 | disposition home or self-care (01) ==
LOC: FSED 08:10
DX: J45.909 Unspecified asthma, uncomplicated (principal); R06.00 Dyspnea, unspecified; F41.9 Anxiety disorder, unspecified
CPT/HCPCS: 99282; J7512

== ENCOUNTER 2020-05-14 18:57 | Emergency (ER) | payer OTHER ==
[~2020-05-14] VITALS: Ht 193 cm; Wt 102.5 kg
[2020-05-14] MEDS ORDERED: METHYLPREDNISOLONE SOD SUCC 125 MG/2ML VIAL IV ONE (19:15)
[2020-05-14] MEDS ORDERED: ALBUTEROL/IPRATROPIUM 3 ML NEB NEB ONE (19:15)
[2020-05-14] MEDS ORDERED: MAGNESIUM SULFATE 2GM/50ML 50 ML IV ONE (19:15)
[2020-05-14 19:26] LABS: HEMATOCRIT 46.9 % (38.2-49.6); HEMOGLOBIN 16.1 g/dL (14.0-18.0); LYMPHOCYTES % 16.1 % (18.0-39.1); MEAN CORPUSCULAR HEMOGLOBIN 30.3 pg (28-32); MEAN CORPUSCULAR HGB CONC 34.3 g/dL (31-35); MEAN CORPUSCULAR VOLUME 88.2 fL (81-99); MONOCYTES % 6.7 % (4.4-11.3); NEUTROPHILS % 71.1 % (38.7-80.0); PLATELET COUNT 203 x10e3/uL (140-360); RED BLOOD COUNT 5.32 x10e6/uL (4.3-5.7); RED CELL DISTRIBUTION WIDTH 14.1 % (11.7-14.4)
[2020-05-14 19:27] LABS: BASOPHILS % 0.5 % (0.0-1.0); EOSINOPHILS # (AUTO) 0.5 (0.0-0.4); EOSINOPHILS % 5.4 % (0.0-6.0); LYMPHOCYTES # (AUTO) 1.3 (1.0-3.2); MONOCYTES # (AUTO) 0.6 (0.2-0.8); NEUTROPHILS # (AUTO) 5.9 (2.1-6.9)
[2020-05-14 19:41] LABS: ALANINE AMINOTRANSFERASE 25 IU/L (0-55); ALBUMIN 4.7 g/dL (3.5-5.0); ALKALINE PHOSPHATASE 73 IU/L (40-150); ANION GAP 15.4 mmol/L (8-16); BLOOD UREA NITROGEN 7 mg/dL (7-26); BUN/CREATININE RATIO 8 (6-25); CALCIUM 9.5 mg/dL (8.4-10.2); CARBON DIOXIDE 23 mmol/L (22-29); CHLORIDE 109 mmol/L (98-107); CREATININE, SERUM 0.83 mg/dL (0.72-1.25); EST GLOMERULAR FILTRATION RATE > 60 ML/MIN (60-); GLUCOSE 104 mg/dL (74-118); POTASSIUM 3.4 mmol/L (3.5-5.1); SODIUM 144 mmol/L (136-145)
[2020-05-14] MEDS ORDERED: PREDNISONE20 MG PO (20:17)
[2020-05-14 21:04] VITALS: BP 124/76
[2020-05-14] MEDS ORDERED: SYMBICORT 16010.2 GM INH (21:19)
[2020-05-14] MEDS ORDERED: PROVENTIL HFA6.7 GM INH (21:22)
== END 2020-05-14 21:30 | disposition home or self-care (01) ==
LOC: ER 19:00
DX: J45.901 Unspecified asthma with (acute) exacerbation (principal); F41.9 Anxiety disorder, unspecified; F17.210 Nicotine dependence, cigarettes, uncomplicated
CPT/HCPCS: 36415; 71045; 80053; 85025; 94640; 99284; J2930; J3475

== ENCOUNTER 2020-05-15 07:14 | Inpatient (IN) | payer SELFPAY ==
[~2020-05-15] VITALS: Ht 182.9 cm; Wt 97.5 kg
[2020-05-15] MEDS ORDERED: METHYLPREDNISOLONE SOD SUCC 125 MG/2ML VIAL IV ONE (07:30)
[2020-05-15] MEDS ORDERED: ALBUTEROL/IPRATROPIUM 3 ML NEB NEB ONE (07:30)
[2020-05-15 07:39] LABS: BASOPHILS % 0.1 % (0.0-1.0); HEMATOCRIT 48.3 % (38.2-49.6); HEMOGLOBIN 16.1 g/dL (14.0-18.0); LYMPHOCYTES # (AUTO) 0.4 (1.0-3.2); LYMPHOCYTES % 4.8 % (18.0-39.1); MEAN CORPUSCULAR HEMOGLOBIN 29.9 pg (28-32); MEAN CORPUSCULAR HGB CONC 33.3 g/dL (31-35); MEAN CORPUSCULAR VOLUME 89.6 fL (81-99); MONOCYTES # (AUTO) 0.3 (0.2-0.8); MONOCYTES % 3.4 % (4.4-11.3); NEUTROPHILS # (AUTO) 8.1 (2.1-6.9); NEUTROPHILS % 91.5 % (38.7-80.0); PLATELET COUNT 232 x10e3/uL (140-360); RED BLOOD COUNT 5.39 x10e6/uL (4.3-5.7); RED CELL DISTRIBUTION WIDTH 14.2 % (11.7-14.4)
[2020-05-15] MEDS ORDERED: LORAZEPAM INJ 2 MG/ML VIAL ONE (07:46)
[2020-05-15] MEDS ORDERED: LORAZEPAM INJ 2 MG/ML VIAL IV ONE (08:00)
[2020-05-15 08:10] LABS: ALANINE AMINOTRANSFERASE 26 IU/L (0-55); ALBUMIN 4.8 g/dL (3.5-5.0); ALBUMIN/GLOBULIN RATIO 1.8 (0.8-2.0); ALKALINE PHOSPHATASE 80 IU/L (40-150); BLOOD UREA NITROGEN 10 mg/dL (7-26); BUN/CREATININE RATIO 13 (6-25); CALCIUM 9.5 mg/dL (8.4-10.2); CARBON DIOXIDE 17 mmol/L (22-29); CHLORIDE 109 mmol/L (98-107); CREATININE, SERUM 0.79 mg/dL (0.72-1.25); EST GLOMERULAR FILTRATION RATE > 60 ML/MIN (60-); GLUCOSE 156 mg/dL (74-118); MAGNESIUM 2.1 MG/DL (1.3-2.1); SODIUM 142 mmol/L (136-145)
[2020-05-15 08:36] LABS: CLARITY,URINE CLEAR (CLEAR); COLOR,URINE YELLOW (YELLOW); KETONES,URINE NEGATIVE (NEGATIVE); LEUKOCYTE ESTERASE ,URINE NEGATIVE (NEGATIVE); NITRITE,URINE NEGATIVE (NEGATIVE); PROTEIN,URINE DIPSTICK NEGATIVE (NEGATIVE); URINE UROBILINOGEN 0.2 mg/dL (0.2 - 1)
[2020-05-15 08:40] LABS: AMPHETAMINES SCREEN,URINE NEGATIVE (NEGATIVE); BENZODIAZEPINES SCREEN,URINE NEGATIVE (NEGATIVE); PHENCYCLIDINE SCREEN,URINE NEGATIVE (NEGATIVE)
[2020-05-15 08:48] LABS: BACTERIA,URINE RARE /HPF; EPITHELIAL CELLS,URINE RARE /LPF; WBC,URINE (MAN) 0-5 /HPF (0-5)
[2020-05-15] MEDS ORDERED: SODIUM CHLORIDE 0.9% 1000ML 1,000 ML IV STA (08:51)
[2020-05-15] MEDS ORDERED: ONDANSETRON HCL INJ 2MG/ML 2ML 2 MG/ML VIAL IV PRN (09:00)
[2020-05-15] MEDS ORDERED: ACETAMINOPHEN 325 MG TAB PO PRN (09:30)
[2020-05-15] MEDS ORDERED: HYDRALAZINE HCL 20 MG/ML VIAL IV PRN (09:30)
[2020-05-15] MEDS ORDERED: SODIUM CHLORIDE 0.9% 1000ML 1,000 ML IV SCH (09:30)
[2020-05-15] MEDS: AZITHROMYCIN 500MG/NS 250 ML 250 ML IV SCH (10:16)
[2020-05-15] MEDS: ALBUTEROL/IPRATROPIUM 3 ML NEB NEB SCH ×4 (11:08→22:40)
[2020-05-15 12:50] VITALS: BP 139/90
[2020-05-15] MEDS: LORAZEPAM 1 MG TAB PO PRN (13:47)
[2020-05-15] MEDS: METHYLPREDNISOLONE SOD SUCC 125 MG/2ML VIAL IV SCH ×2 (13:51→21:17)
[2020-05-15 14:18] VITALS: BP 139/90
[2020-05-15 15:31] VITALS: BP 159/85
[2020-05-15] MEDS: FAMOTIDINE 20 MG TAB PO SCH (16:21)
[2020-05-15] MEDS ORDERED: BUDESONIDE/FORMOTEROL 160/4.5MCG INHALER INH SCH (17:00)
[2020-05-15] MEDS: FLUTICASONE PROPIONATE NASAL SPRAY NS SCH (17:29)
[2020-05-15] MEDS: SALMETEROL/FLUTICASONE 500/50 INH SCH (18:46)
[2020-05-15 20:00] VITALS: BP 131/73
[2020-05-15 21:00] VITALS: BP 131/73
[2020-05-16] VITALS (8 sets, daily range): BP systolic 108–137; BP diastolic 71–94
[2020-05-16] MEDS: ALBUTEROL/IPRATROPIUM 3 ML NEB NEB SCH ×6 (02:25→23:00)
[2020-05-16 05:59] LABS: BASOPHILS % 0.1 % (0.0-1.0); HEMATOCRIT 44.5 % (38.2-49.6); HEMOGLOBIN 15.1 g/dL (14.0-18.0); LYMPHOCYTES # (AUTO) 0.7 (1.0-3.2); LYMPHOCYTES % 5.5 % (18.0-39.1); MEAN CORPUSCULAR HEMOGLOBIN 30.3 pg (28-32); MEAN CORPUSCULAR HGB CONC 33.9 g/dL (31-35); MEAN CORPUSCULAR VOLUME 89.2 fL (81-99); MONOCYTES # (AUTO) 0.7 (0.2-0.8); MONOCYTES % 5.8 % (4.4-11.3); NEUTROPHILS # (AUTO) 10.7 (2.1-6.9); NEUTROPHILS % 88.1 % (38.7-80.0); PLATELET COUNT 202 x10e3/uL (140-360); RED BLOOD COUNT 4.99 x10e6/uL (4.3-5.7); RED CELL DISTRIBUTION WIDTH 14.6 % (11.7-14.4)
[2020-05-16 06:18] LABS: ALANINE AMINOTRANSFERASE 23 IU/L (0-55); ALBUMIN 4.2 g/dL (3.5-5.0); ALBUMIN/GLOBULIN RATIO 1.8 (0.8-2.0); ALKALINE PHOSPHATASE 62 IU/L (40-150); ANION GAP 13.2 mmol/L (8-16); BLOOD UREA NITROGEN 10 mg/dL (7-26); BUN/CREATININE RATIO 14 (6-25); CALCIUM 9.2 mg/dL (8.4-10.2); CARBON DIOXIDE 24 mmol/L (22-29); CHLORIDE 108 mmol/L (98-107); EST GLOMERULAR FILTRATION RATE > 60 ML/MIN (60-); GLUCOSE 124 mg/dL (74-118); POTASSIUM 4.2 mmol/L (3.5-5.1); SODIUM 141 mmol/L (136-145)
[2020-05-16] MEDS: METHYLPREDNISOLONE SOD SUCC 125 MG/2ML VIAL IV SCH (06:22)
[2020-05-16] MEDS: SALMETEROL/FLUTICASONE 500/50 INH SCH (07:45)
[2020-05-16] MEDS: LORAZEPAM 1 MG TAB PO PRN ×2 (08:10→21:25)
[2020-05-16] MEDS ORDERED: SODIUM CHLORIDE 0.9% 250ML 250 ML ONE (08:27)
[2020-05-16] MEDS: FLUTICASONE PROPIONATE NASAL SPRAY NS SCH ×2 (09:00→17:00)
[2020-05-16] MEDS: FAMOTIDINE 20 MG TAB PO SCH ×2 (09:00→17:00)
[2020-05-16] MEDS: AZITHROMYCIN 500MG/NS 250 ML 250 ML IV SCH (09:00)
[2020-05-16] MEDS ORDERED: METHYLPREDNISOLONE SOD SUCC 125 MG/2ML VIAL IV SCH (11:45)
[2020-05-16] MEDS: BUDESONIDE/FORMOTEROL 160/4.5MCG INHALER INH SCH (19:30)
[2020-05-17] VITALS (9 sets, daily range): BP systolic 101–137; BP diastolic 55–94
[2020-05-17] MEDS: ALBUTEROL/IPRATROPIUM 3 ML NEB NEB SCH ×6 (02:15→23:25)
[2020-05-17 05:58] LABS: BASOPHILS % 0.1 % (0.0-1.0); EOSINOPHILS % 0.1 % (0.0-6.0); HEMATOCRIT 47.4 % (38.2-49.6); LYMPHOCYTES # (AUTO) 1.6 (1.0-3.2); LYMPHOCYTES % 16.6 % (18.0-39.1); MEAN CORPUSCULAR HEMOGLOBIN 30.2 pg (28-32); MEAN CORPUSCULAR HGB CONC 33.8 g/dL (31-35); MEAN CORPUSCULAR VOLUME 89.6 fL (81-99); MONOCYTES # (AUTO) 0.9 (0.2-0.8); MONOCYTES % 9.8 % (4.4-11.3); NEUTROPHILS # (AUTO) 6.9 (2.1-6.9); NEUTROPHILS % 73.1 % (38.7-80.0); PLATELET COUNT 197 x10e3/uL (140-360); RED BLOOD COUNT 5.29 x10e6/uL (4.3-5.7); RED CELL DISTRIBUTION WIDTH 14.6 % (11.7-14.4)
[2020-05-17 06:22] LABS: ANION GAP 12.7 mmol/L (8-16); BUN/CREATININE RATIO 28 (6-25); CALCIUM 9.1 mg/dL (8.4-10.2); CARBON DIOXIDE 25 mmol/L (22-29); CHLORIDE 107 mmol/L (98-107); CREATININE, SERUM 0.75 mg/dL (0.72-1.25); EST GLOMERULAR FILTRATION RATE > 60 ML/MIN (60-); GLUCOSE 89 mg/dL (74-118); MAGNESIUM 2.2 MG/DL (1.3-2.1); PHOSPHORUS 3.5 MG/DL (2.3-4.7); POTASSIUM 3.7 mmol/L (3.5-5.1); SODIUM 141 mmol/L (136-145)
[2020-05-17 06:30] LABS: BLOOD UREA NITROGEN 21 mg/dL (7-26)
[2020-05-17] MEDS ORDERED: SODIUM CHLORIDE 0.9% 250ML 250 ML ONE (07:19)
[2020-05-17] MEDS: BUDESONIDE/FORMOTEROL 160/4.5MCG INHALER INH SCH ×2 (07:40→19:35)
[2020-05-17] MEDS: FLUTICASONE PROPIONATE NASAL SPRAY NS SCH ×2 (08:27→17:21)
[2020-05-17] MEDS: FAMOTIDINE 20 MG TAB PO SCH ×2 (08:27→17:21)
[2020-05-17] MEDS: AZITHROMYCIN 500MG/NS 250 ML 250 ML IV SCH (08:27)
[2020-05-17] MEDS: LORAZEPAM 1 MG TAB PO PRN ×2 (08:39→22:17)
[2020-05-18] MEDS: ALBUTEROL/IPRATROPIUM 3 ML NEB NEB SCH ×4 (03:10→15:15)
[2020-05-18 05:57] VITALS: BP 114/81
[2020-05-18] MEDS: BUDESONIDE/FORMOTEROL 160/4.5MCG INHALER INH SCH (06:54)
[2020-05-18 07:40] LABS: BASOPHILS % 0.3 % (0.0-1.0); EOSINOPHILS # (AUTO) 0.1 (0.0-0.4); EOSINOPHILS % 2.1 % (0.0-6.0); HEMATOCRIT 49.2 % (38.2-49.6); HEMOGLOBIN 16.8 g/dL (14.0-18.0); LYMPHOCYTES # (AUTO) 1.6 (1.0-3.2); MEAN CORPUSCULAR HEMOGLOBIN 30.3 pg (28-32); MEAN CORPUSCULAR HGB CONC 34.1 g/dL (31-35); MEAN CORPUSCULAR VOLUME 88.8 fL (81-99); MONOCYTES # (AUTO) 0.5 (0.2-0.8); MONOCYTES % 8.7 % (4.4-11.3); NEUTROPHILS # (AUTO) 3.5 (2.1-6.9); NEUTROPHILS % 60.7 % (38.7-80.0); PLATELET COUNT 187 x10e3/uL (140-360); RED BLOOD COUNT 5.54 x10e6/uL (4.3-5.7)
[2020-05-18 07:57] LABS: ANION GAP 12.6 mmol/L (8-16); BLOOD UREA NITROGEN 24 mg/dL (7-26); BUN/CREATININE RATIO 32 (6-25); CALCIUM 8.7 mg/dL (8.4-10.2); CARBON DIOXIDE 24 mmol/L (22-29); CHLORIDE 107 mmol/L (98-107); CREATININE, SERUM 0.75 mg/dL (0.72-1.25); EST GLOMERULAR FILTRATION RATE > 60 ML/MIN (60-); GLUCOSE 83 mg/dL (74-118); POTASSIUM 3.6 mmol/L (3.5-5.1); SODIUM 140 mmol/L (136-145)
[2020-05-18 07:59] VITALS: BP 114/81
[2020-05-18 08:43] VITALS: BP 124/82
[2020-05-18] MEDS: FLUTICASONE PROPIONATE NASAL SPRAY NS SCH ×2 (09:00→17:49)
[2020-05-18] MEDS: FAMOTIDINE 20 MG TAB PO SCH ×2 (09:01→17:49)
[2020-05-18] MEDS: METHYLPREDNISOLONE SOD SUCC 40 MG/ML VIAL 1ML IV SCH (09:02)
[2020-05-18] MEDS: AZITHROMYCIN 500MG/NS 250 ML 250 ML IV SCH (09:04)
[2020-05-18 12:14] VITALS: BP 118/85
[2020-05-18] MEDS: LORAZEPAM 1 MG TAB PO PRN ×2 (14:45→21:49)
[2020-05-18 16:24] VITALS: BP 126/94
[2020-05-18 20:20] VITALS: BP 135/87
[2020-05-19 00:27] VITALS: BP 125/94
[2020-05-19 01:29] VITALS: BP 125/94
[2020-05-19 05:07] VITALS: BP 126/88
[2020-05-19 06:09] LABS: BASOPHILS % 0.3 % (0.0-1.0); EOSINOPHILS # (AUTO) 0.2 (0.0-0.4); HEMATOCRIT 48.6 % (38.2-49.6); MEAN CORPUSCULAR HEMOGLOBIN 30.9 pg (28-32); MEAN CORPUSCULAR VOLUME 88.2 fL (81-99); MONOCYTES # (AUTO) 0.5 (0.2-0.8); MONOCYTES % 7.8 % (4.4-11.3); NEUTROPHILS % 58.6 % (38.7-80.0); PLATELET COUNT 190 x10e3/uL (140-360); RED BLOOD COUNT 5.51 x10e6/uL (4.3-5.7); RED CELL DISTRIBUTION WIDTH 13.5 % (11.7-14.4)
[2020-05-19 06:29] LABS: ANION GAP 12.5 mmol/L (8-16); BLOOD UREA NITROGEN 20 mg/dL (7-26); BUN/CREATININE RATIO 28 (6-25); CALCIUM 8.9 mg/dL (8.4-10.2); CARBON DIOXIDE 23 mmol/L (22-29); CHLORIDE 107 mmol/L (98-107); CREATININE, SERUM 0.72 mg/dL (0.72-1.25); EST GLOMERULAR FILTRATION RATE > 60 ML/MIN (60-); GLUCOSE 88 mg/dL (74-118); POTASSIUM 3.5 mmol/L (3.5-5.1); SODIUM 139 mmol/L (136-145)
[2020-05-19] MEDS: ALBUTEROL/IPRATROPIUM 3 ML NEB NEB SCH ×2 (07:00→10:43)
[2020-05-19 08:26] VITALS: BP 108/86
[2020-05-19 08:28] VITALS: BP 108/86
[2020-05-19] MEDS ORDERED: PREDNISONE10 MG PO (10:05)
[2020-05-19] MEDS ORDERED: SYMBICORT 16010.2 GM INH ×2 (10:05→10:10)
[2020-05-19] MEDS: FLUTICASONE PROPIONATE NASAL SPRAY NS SCH (10:11)
[2020-05-19] MEDS ORDERED: ATIVAN0.5 MG PO (10:21)
[2020-05-19] MEDS: FAMOTIDINE 20 MG TAB PO SCH (10:31)
[2020-05-19] MEDS: METHYLPREDNISOLONE SOD SUCC 40 MG/ML VIAL 1ML IV SCH (10:31)
[2020-05-19] MEDS: AZITHROMYCIN 500MG/NS 250 ML 250 ML IV SCH (10:31)
[2020-05-19 11:51] VITALS: BP 123/77
== END 2020-05-19 13:20 | disposition home or self-care (01) | DRG 203 ==
LOC: ER 07:26 → ERHOLD 09:03 → MED/SURG2 12:34 → OBSVTOIN 05-16 10:16
PROVIDERS: ADMIT Internal Medicine; ATTEND Internal Medicine
DX: J45.51 Severe persistent asthma with (acute) exacerbation (principal); G47.30 Sleep apnea, unspecified; F41.9 Anxiety disorder, unspecified; R00.0 Tachycardia, unspecified; Z20.828 Contact with and (suspected) exposure to other viral communicable diseases; I49.3 Ventricular premature depolarization
CPT/HCPCS: 36415; 71045; 71250; 80048; 80053; 80307; 81001; 83735; 83880; 84100; 85025; 93005; 94640; 94664; 99284; G0378; J0456; J2060; J2920; J2930; J7030; J7050; U0002

== ENCOUNTER 2020-10-23 03:40 | Emergency (ER) | payer SELFPAY ==
[~2020-10-23] VITALS: Ht 182.9 cm; Wt 97.5 kg
[~2020-10-23 03:40] MED LIST changes: +ATIVAN0.5 MG PO
[2020-10-23] MEDS ORDERED: ALBUTEROL/IPRATROPIUM 3 ML NEB NEB ONE ×2 (03:45)
[2020-10-23] MEDS ORDERED: METHYLPREDNISOLONE SOD SUCC 125 MG/2ML VIAL IV ONE ×2 (03:45)
[2020-10-23] MEDS ORDERED: METHYLPREDNISOLONE SOD SUCC 125 MG/2ML VIAL IM ONE (04:15)
[2020-10-23] MEDS ORDERED: PROVENTIL HFA6.7 GM INH (05:45)
[2020-10-23] MEDS ORDERED: ADVAIR 250-501 EACH INH (05:45)
[2020-10-23] MEDS ORDERED: PREDNISONE20 MG PO (05:45)
[2020-10-23 05:58] VITALS: BP 128/76
== END 2020-10-23 05:59 | disposition home or self-care (01) ==
LOC: ER 04:00
DX: F41.1 Generalized anxiety disorder (principal); R06.02 Shortness of breath; J45.901 Unspecified asthma with (acute) exacerbation
CPT/HCPCS: 71045; 93005; 94640; 99283; J2930

== ENCOUNTER 2021-11-13 13:51 | Inpatient (IN) | payer SELFPAY ==
[~2021-11-13] VITALS: Ht 193 cm; Wt 78.9 kg
[~2021-11-13 13:51] MED LIST changes: +ADVAIR 250-501 EACH INH
[2021-11-13] MEDS ORDERED: ALBUTEROL/IPRATROPIUM 3 ML NEB NEB ONE (14:00)
[2021-11-13] MEDS ORDERED: SODIUM CHLORIDE 0.9% 1000ML 1,000 ML IV SCH (14:00)
[2021-11-13] MEDS ORDERED: METHYLPREDNISOLONE SOD SUCC 125 MG/2ML VIAL IV ONE (14:00)
[2021-11-13 14:25] LABS: BASOPHILS # (AUTO) 0.1 (0.0-0.1); BASOPHILS % 0.6 % (0.0-1.0); EOSINOPHILS # (AUTO) 0.7 (0.0-0.4); EOSINOPHILS % 6.7 % (0.0-6.0); HEMATOCRIT 51.9 % (38.2-49.6); HEMOGLOBIN 17.7 g/dL (14.0-18.0); LYMPHOCYTES # (AUTO) 2.4 (1.0-3.2); LYMPHOCYTES % 24.5 % (18.0-39.1); MEAN CORPUSCULAR HEMOGLOBIN 31.2 pg (28-32); MEAN CORPUSCULAR HGB CONC 34.1 g/dL (31-35); MEAN CORPUSCULAR VOLUME 91.5 fL (81-99); MONOCYTES # (AUTO) 0.6 (0.2-0.8); MONOCYTES % 6.3 % (4.4-11.3); NEUTROPHILS # (AUTO) 6.1 (2.1-6.9); NEUTROPHILS % 61.7 % (38.7-80.0); PLATELET COUNT 265 x10e3/uL (140-360); RED BLOOD COUNT 5.67 x10e6/uL (4.3-5.7); RED CELL DISTRIBUTION WIDTH 13.7 % (11.7-14.4)
[2021-11-13 14:45] LABS: ALBUMIN 4.1 g/dL (3.5-5.0); ALBUMIN/GLOBULIN RATIO 1.2 (0.8-2.0); ANION GAP 15.4 mmol/L (8-16); CALCIUM 9.5 mg/dL (8.4-10.2); CREATININE, SERUM 0.75 mg/dL (0.72-1.25); POTASSIUM 4.4 mmol/L (3.5-5.1)
[2021-11-13] MEDS ORDERED: ONDANSETRON HCL INJ 2MG/ML 2ML 2 MG/ML VIAL IV PRN (16:00)
[2021-11-13] MEDS: FAMOTIDINE 20 MG TAB PO SCH (17:19)
[2021-11-13] MEDS: SALMETEROL/FLUTICASONE 250/50 INH SCH (20:20)
[2021-11-13] MEDS: ALBUTEROL SULF 0.083% NEB SOLN 3 ML NEB NEB SCH (20:22)
[2021-11-14] MEDS: ALBUTEROL SULF 0.083% NEB SOLN 3 ML NEB NEB SCH ×7 (00:45→23:40)
[2021-11-14] MEDS: METHYLPREDNISOLONE SOD SUCC 125 MG/2ML VIAL IV SCH ×3 (06:29→22:21)
[2021-11-14] MEDS: SALMETEROL/FLUTICASONE 250/50 INH SCH ×2 (07:15→22:21)
[2021-11-14 08:30] VITALS: BP 139/73
[2021-11-14 08:40] VITALS: BP 139/73
[2021-11-14] MEDS ORDERED: LORAZEPAM 1 MG TAB PO PRN (09:15)
[2021-11-14] MEDS: FAMOTIDINE 20 MG TAB PO SCH ×2 (10:07→17:00)
[2021-11-14 11:38] VITALS: BP 126/75
[2021-11-14 16:40] VITALS: BP 132/79
[2021-11-14 20:00] VITALS: BP 126/89
[2021-11-14] MEDS: ZOLPIDEM TARTRATE 5 MG TAB PO PRN (22:21)
[2021-11-15] VITALS (8 sets, daily range): BP systolic 122–139; BP diastolic 70–88
[2021-11-15] MEDS: ALBUTEROL SULF 0.083% NEB SOLN 3 ML NEB NEB SCH ×6 (03:05→23:15)
[2021-11-15] MEDS: SALMETEROL/FLUTICASONE 250/50 INH SCH ×2 (06:36→19:50)
[2021-11-15] MEDS: ALBUTEROL SULFATE HFA 8GM INHALATION AEROSOL INH PRN (06:37)
[2021-11-15] MEDS: METHYLPREDNISOLONE SOD SUCC 125 MG/2ML VIAL IV SCH ×2 (09:00→22:02)
[2021-11-15] MEDS: FAMOTIDINE 20 MG TAB PO SCH ×2 (10:20→16:30)
[2021-11-15] MEDS: ZOLPIDEM TARTRATE 5 MG TAB PO PRN (22:02)
[2021-11-16 00:11] VITALS: BP 147/89
[2021-11-16] MEDS: ALBUTEROL SULF 0.083% NEB SOLN 3 ML NEB NEB SCH ×5 (03:20→18:44)
[2021-11-16 04:00] VITALS: BP 127/83
[2021-11-16] MEDS: SALMETEROL/FLUTICASONE 250/50 INH SCH ×2 (07:00→18:44)
[2021-11-16] MEDS: ALBUTEROL SULFATE HFA 8GM INHALATION AEROSOL INH PRN (07:15)
[2021-11-16 07:49] VITALS: BP 127/84
[2021-11-16 08:00] VITALS: BP 127/84
[2021-11-16] MEDS: METHYLPREDNISOLONE SOD SUCC 125 MG/2ML VIAL IV SCH (09:00)
[2021-11-16] MEDS: FAMOTIDINE 20 MG TAB PO SCH (09:00)
[2021-11-16 11:40] VITALS: BP 132/91
[2021-11-16 15:34] VITALS: BP 135/74
[2021-11-16] MEDS ORDERED: IPRAT-ALBUT 0.5-3 ML INH (18:33)
== END 2021-11-16 19:16 | disposition home or self-care (01) | DRG 202 ==
LOC: ER 15:58 → ERHOLD 16:03 → MED/SURG 11-14 08:36 → OBSVTOIN 11-14 14:34
PROVIDERS: ADMIT Internal Medicine; ATTEND Internal Medicine
DX: J45.901 Unspecified asthma with (acute) exacerbation (principal); J96.01 Acute respiratory failure with hypoxia; F41.9 Anxiety disorder, unspecified; Z87.891 Personal history of nicotine dependence; Z88.8 Allergy status to other drugs, medicaments and biological substances; Z20.822 Contact with and (suspected) exposure to COVID-19
CPT/HCPCS: 36415; 71045; 80053; 84484; 85025; 94640; 94664; 94799; 99285; G0378; J2930

== ENCOUNTER 2022-04-27 04:16 | Emergency (ER) | payer SELFPAY ==
[~2022-04-27] VITALS: Ht 193 cm; Wt 78.9 kg
[~2022-04-27 04:16] MED LIST changes: +IPRAT-ALBUT 0.5-3 ML INH
[2022-04-27] MEDS ORDERED: ALBUTEROL1.25 MG/3 NEB (04:31)
[2022-04-27] MEDS ORDERED: PROVENTIL HFA6.7 GM INH (04:31)
[2022-04-27] MEDS ORDERED: MEDROL4 M2 PO (04:31)
[2022-04-27] MEDS ORDERED: ALBUTEROL SULF 0.083% NEB SOLN 3 ML NEB NEB STA (04:32)
[2022-04-27] MEDS ORDERED: METHYLPREDNISOLONE SOD SUCC 125 MG/2ML VIAL ONE (04:44)
[2022-04-27] MEDS ORDERED: IPRATROPIUM BROMIDE 0.02% 2.5 ML NEB NEB ONE (04:45)
[2022-04-27] MEDS ORDERED: ALBUTEROL SULFATE HFA 8GM INHALATION AEROSOL INH PRN (04:45)
[2022-04-27] MEDS ORDERED: METHYLPREDNISOLONE SOD SUCC 125 MG/2ML VIAL IM ONE (04:45)
[2022-04-27] MEDS ORDERED: ALBUTEROL SULFATE HFA 8GM INHALATION AEROSOL INH ONE (04:48)
== END 2022-04-27 05:12 | disposition home or self-care (01) ==
LOC: ER 04:25
DX: J45.901 Unspecified asthma with (acute) exacerbation (principal); Z88.8 Allergy status to other drugs, medicaments and biological substances
CPT/HCPCS: 94799; 99282; J2930